=== PATIENT | female | born 1945 | race Caucasian/White ===

== ENCOUNTER 2021-07-09 03:12 | Inpatient (IN) | payer MEDICARE, MEDICAID ==
[~2021-07-09] VITALS: Ht 160 cm; Wt 80.8 kg
[2021-07-09 05:35] LABS: BG BASE EXCESS -0.8 mmol/L (-2.0-2.0); BG CARBOXYHEMOGLOBIN 0.3 % (0.5-1.5); BG FRACTION INSPIRED OXYGEN 28; BG METHEMOGLOBIN 0.3 % (0.0-1.5); BG OXYHEMOGLOBIN 93.4 % (94.0-97.0); BG PCO2 35.9 mmHg (35.0-45.0); BG PH 7.425 (7.350-7.450); BG PO2 67.3 mmHg (75.0-100.0); BG SAMPLE SITE RIGHT RADIAL; BG TOTAL HEMOGLOBIN 15.5 g/dL (12.0-18.0); BG VENT MODE NASAL CANNULA
[2021-07-09 05:45] LABS: HEMATOCRIT. 46.1 % (36.0-48.0); HEMOGLOBIN. 15.8 g/dL (12.0-16.0); LYMPHOCYTES % 9.6 % (20.0-50.0); MEAN CORPUSCULAR HEMOGLOBIN 31.1 pg (28.0-32.0); MEAN CORPUSCULAR VOLUME 90.6 fL (81.0-99.0); MEAN PLATELET VOLUME 9.6 fl (7.4-10.4); MONOCYTES % 5.8 % (2.0-8.0); NEUTROPHILS % 84.6 % (40.0-76.0); PLATELET 132 x1000/uL (130-400); RED BLOOD CELL COUNT 5.09 mill/uL (4.2-5.4); RED CELL DISTRIBUTION WIDTH 14.3 % (11.6-14.6)
[2021-07-09 05:58] LABS: CHLORIDE 100 mEq/L (98-107)
[2021-07-09 06:06] LABS: CREATINE KINASE 156 IU/L (26-192)
[2021-07-09 06:12] LABS: D-DIMER 0.67 mg/L FEU (<0.50); PROTHROMBIN TIME 10.6 sec (9.6-11.0)
[2021-07-09] MEDS ORDERED: AZITHROMYCIN 500 MG in DEXT 5% WATER 250 ML IV ONE (07:15)
[2021-07-09] MEDS ORDERED: CEFTRIAXONE 1 G PREMIX 50 ML IV ONE (07:15)
[2021-07-09 07:55] LABS: CLARITY URINE CLEAR (CLEAR); COLOR URINE YELLOW (YELLOW); KETONES URINE NEGATIVE (NEGATIVE); LEUKOCYTE ESTERASE URINE NEGATIVE (NEGATIVE); NITRITE URINE NEGATIVE (NEGATIVE); OCCULT BLOOD URINE NEGATIVE (NEGATIVE); PROTEIN URINE 1+ (NEGATIVE); SPECIFIC GRAVITY URINE 1.012 (1.005-1.030)
[2021-07-09] MEDS ORDERED: ZOLPIDEM TARTRATE 5MG TABLET PO PRN (11:30)
[2021-07-09] MEDS ORDERED: ALBUTEROL 6.7GM HFA INHALER ORI PRN (11:30)
[2021-07-09] MEDS ORDERED: KETOROLAC 15MG/ML VIAL IV PRN (11:30)
[2021-07-09] MEDS ORDERED: TRAMADOL 50MG TABLET PO PRN (11:30)
[2021-07-09] MEDS ORDERED: NITROGLYCERIN 0.4MG TABLET SL SL PRN (11:30)
[2021-07-09] MEDS ORDERED: ACETAMINOPHEN 325MG TABLET PO PRN (11:45)
[2021-07-09] MEDS ORDERED: GUAIFENESIN 200MG/10ML SUGAR FREE UDC PO PRN (11:45)
[2021-07-09] MEDS ORDERED: CLONIDINE 0.1MG TABLET PO PRN (11:45)
[2021-07-09] MEDS ORDERED: NA PHOS,M-B/NA PHOS,DI-BA ENEMA 118ML PR PRN (11:45)
[2021-07-09] MEDS ORDERED: MAGNESIUM/ALUMINUM HYDROXIDE/SIMETHICONE 30ML UDC PO PRN (11:45)
[2021-07-09] MEDS ORDERED: ONDANSETRON HCL 4MG/2ML INJ IV PRN (11:45)
[2021-07-09 12:13] LABS: T4 FREE 1.6 ng/dL (0.76-1.46)
[2021-07-09 12:26] LABS: FOLIC ACID (FOLATE) SERUM >20 ng/mL ng/mL (>5.38)
[2021-07-09 12:38] LABS: VITAMIN B12 SERUM >2000 pg/mL pg/mL (211-911)
[2021-07-09] MEDS: FAMOTIDINE 20MG TABLET PO SCH (14:42)
[2021-07-09] MEDS: ASPIRIN 325MG EC TABLET PO SCH (14:42)
[2021-07-09] MEDS: ENOXAPARIN 40MG/0.4ML SYR SUBCUT SCH (14:42)
[2021-07-09] MEDS: DILTIAZEM HCL 30MG TABLET PO SCH ×2 (14:42→17:58)
[2021-07-09] MEDS: GUAIFENESIN 600MG ER TABLET PO SCH ×2 (14:54→21:26)
[2021-07-09] MEDS: DEXAMETHASONE 6MG TABLET PO SCH (14:54)
[2021-07-09] MEDS: ALBUTEROL 6.7GM HFA INHALER ORI SCH ×3 (15:00→21:28)
[2021-07-09] MEDS ORDERED: NALOXONE HCL 0.4MG/ML VIAL IV PRN (15:15)
[2021-07-09] MEDS ORDERED: OMEP20CA14 MT (16:58)
[2021-07-09] MEDS ORDERED: PENT400T16 MT (16:58)
[2021-07-09] MEDS ORDERED: ATOR10TA69 MT (16:58)
[2021-07-09] MEDS ORDERED: SERT25TA74 MT (16:58)
[2021-07-09 17:10] VITALS: BP 121/67
[2021-07-09 20:00] VITALS: BP 120/59
[2021-07-09 20:46] LABS: CREATINE KINASE 148 IU/L (26-192)
[2021-07-09 20:47] LABS: CREATINE KINASE MB FRACTION 1.2 ng/mL (0.5-3.6)
[2021-07-09] MEDS ORDERED: FAMOTIDINE 20MG TABLET PO SCH (21:00)
[2021-07-09] MEDS: ASCORBIC ACID 500 MG TABLET PO SCH (21:26)
[2021-07-10] VITALS: BP 116/59
[2021-07-10 01:30] LABS: CREATINE KINASE 138 IU/L (26-192)
[2021-07-10 01:31] LABS: CREATINE KINASE MB FRACTION 1.2 ng/mL (0.5-3.6)
[2021-07-10] MEDS: ALBUTEROL 6.7GM HFA INHALER ORI SCH ×2 (03:00→08:26)
[2021-07-10 04:00] VITALS: BP 93/74
[2021-07-10] MEDS: DILTIAZEM HCL 30MG TABLET PO SCH ×4 (04:56→17:44)
[2021-07-10 07:59] LABS: *AMPHETAMINES SCREEN URINE NEGATIVE (NEGATIVE); *BARBITURATES SCREEN URINE NEGATIVE (NEGATIVE); *BENZODIAZEPINES SCREEN URINE NEGATIVE (NEGATIVE)
[2021-07-10 08:00] LABS: *COCAINE SCREEN URINE NEGATIVE (NEGATIVE); CANNABINOID URINE SCREEN NEGATIVE (NEGATIVE); METHADONE URINE SCREEN NEGATIVE (NEGATIVE); OPIATES URINE SCREEN NEGATIVE (NEGATIVE); PHENCYCLIDINE URINE SCREEN NEGATIVE (NEGATIVE)
[2021-07-10] MEDS ORDERED: AZITHROMYCIN 500 MG in DEXT 5% WATER 250 ML IV SCH (08:00)
[2021-07-10] MEDS: CEFTRIAXONE 1,000 MG in DEXTROSE 5% WATER 50 ML IV SCH (08:22)
[2021-07-10] MEDS: DEXAMETHASONE 6MG TABLET PO SCH (08:23)
[2021-07-10] MEDS: FAMOTIDINE 20MG TABLET PO SCH (08:23)
[2021-07-10] MEDS: ASPIRIN 325MG EC TABLET PO SCH (08:23)
[2021-07-10] MEDS: ZINC SULFATE 220 MG ( 50 ) CAPSULE PO SCH (08:24)
[2021-07-10] MEDS: ASCORBIC ACID 500 MG TABLET PO SCH ×2 (08:24→22:14)
[2021-07-10] MEDS: ENOXAPARIN 40MG/0.4ML SYR SUBCUT SCH (08:24)
[2021-07-10 08:35] LABS: CHLORIDE 107 mEq/L (98-107)
[2021-07-10 08:42] LABS: PHOSPHORUS 3.3 mg/dL (2.5-4.9)
[2021-07-10] MEDS ORDERED: CEFTRIAXONE 1 G PREMIX 50 ML IV SCH (09:00)
[2021-07-10] MEDS ORDERED: ENOXAPARIN 80MG/0.8ML SYR SUBCUT SCH (09:45)
[2021-07-10] MEDS: GUAIFENESIN 600MG ER TABLET PO SCH ×2 (10:00→22:14)
[2021-07-10] MEDS: AZITHROMYCIN 500 MG in DEXT 5% WATER 250 ML IV SCH (10:00)
[2021-07-10] MEDS ORDERED: ENOXAPARIN 30MG/0.3ML SYR SUBCUT SCH (10:15)
[2021-07-10 16:00] VITALS: BP 132/65
[2021-07-10 19:30] VITALS: BP 130/88
[2021-07-10 20:00] VITALS: BP 122/58
[2021-07-10] MEDS ORDERED: IOHEXOL-350 100 ML BOTTLE ONE (20:04)
[2021-07-10] MEDS: ENOXAPARIN 80MG/0.8ML SYR SUBCUT SCH (22:15)
[2021-07-11] VITALS: BP 120/64
[2021-07-11] MEDS: DILTIAZEM HCL 30MG TABLET PO SCH ×4 (00:06→16:55)
[2021-07-11 04:00] VITALS: BP 126/68
[2021-07-11 08:00] VITALS: BP 113/61
[2021-07-11] MEDS: ASPIRIN 325MG EC TABLET PO SCH (08:34)
[2021-07-11] MEDS: ENOXAPARIN 80MG/0.8ML SYR SUBCUT SCH ×2 (08:34→21:27)
[2021-07-11] MEDS: GUAIFENESIN 600MG ER TABLET PO SCH ×2 (08:34→21:27)
[2021-07-11] MEDS: DEXAMETHASONE 6MG TABLET PO SCH (08:34)
[2021-07-11] MEDS: FAMOTIDINE 20MG TABLET PO SCH (08:34)
[2021-07-11] MEDS: ZINC SULFATE 220 MG ( 50 ) CAPSULE PO SCH (08:34)
[2021-07-11] MEDS: ASCORBIC ACID 500 MG TABLET PO SCH ×2 (08:34→21:27)
[2021-07-11] MEDS: AZITHROMYCIN 500 MG in DEXT 5% WATER 250 ML IV SCH (08:34)
[2021-07-11] MEDS: ALBUTEROL 6.7GM HFA INHALER ORI SCH ×2 (08:35→21:29)
[2021-07-11] MEDS: CEFTRIAXONE 1,000 MG in DEXTROSE 5% WATER 50 ML IV SCH (08:35)
[2021-07-11 11:56] VITALS: BP 123/69
[2021-07-11 16:00] VITALS: BP_SYST 100; BP_SYST 127; BP_DIAS 60; BP_DIAS 67
[2021-07-11 20:33] VITALS: BP 143/71
[2021-07-12 00:29] VITALS: BP 108/89
[2021-07-12] MEDS: ALBUTEROL 6.7GM HFA INHALER ORI SCH ×4 (03:34→20:44)
[2021-07-12 04:00] VITALS: BP 127/71
[2021-07-12] MEDS: DILTIAZEM HCL 30MG TABLET PO SCH ×5 (05:13→23:39)
[2021-07-12 08:00] VITALS: BP 130/74
[2021-07-12] MEDS: GUAIFENESIN 600MG ER TABLET PO SCH ×2 (09:12→20:43)
[2021-07-12] MEDS: ASCORBIC ACID 500 MG TABLET PO SCH ×2 (09:12→20:43)
[2021-07-12] MEDS: ZINC SULFATE 220 MG ( 50 ) CAPSULE PO SCH (09:12)
[2021-07-12] MEDS: ASPIRIN 325MG EC TABLET PO SCH (09:12)
[2021-07-12] MEDS: FAMOTIDINE 20MG TABLET PO SCH (09:12)
[2021-07-12] MEDS: ENOXAPARIN 80MG/0.8ML SYR SUBCUT SCH ×2 (09:12→20:43)
[2021-07-12] MEDS: DEXAMETHASONE 6MG TABLET PO SCH (09:12)
[2021-07-12] MEDS: CEFTRIAXONE 1,000 MG in DEXTROSE 5% WATER 50 ML IV SCH (09:12)
[2021-07-12] MEDS: AZITHROMYCIN 500 MG in DEXT 5% WATER 250 ML IV SCH (09:54)
[2021-07-12 12:00] VITALS: BP 98/41
[2021-07-12 16:00] VITALS: BP 116/59
[2021-07-12 20:00] VITALS: BP 122/56
[2021-07-13] VITALS: BP 119/85
[2021-07-13] MEDS: ALBUTEROL 6.7GM HFA INHALER ORI SCH ×4 (03:00→20:13)
[2021-07-13] MEDS: DILTIAZEM HCL 30MG TABLET PO SCH ×3 (06:46→17:20)
[2021-07-13 08:00] VITALS: BP 123/58
[2021-07-13] MEDS: FAMOTIDINE 20MG TABLET PO SCH (08:42)
[2021-07-13] MEDS: ZINC SULFATE 220 MG ( 50 ) CAPSULE PO SCH (08:42)
[2021-07-13] MEDS: ASPIRIN 325MG EC TABLET PO SCH (08:42)
[2021-07-13] MEDS: AZITHROMYCIN 500 MG in DEXT 5% WATER 250 ML IV SCH (08:42)
[2021-07-13] MEDS: GUAIFENESIN 600MG ER TABLET PO SCH ×2 (08:42→20:12)
[2021-07-13] MEDS: ASCORBIC ACID 500 MG TABLET PO SCH ×2 (08:42→20:12)
[2021-07-13] MEDS: DEXAMETHASONE 6MG TABLET PO SCH (08:42)
[2021-07-13] MEDS: CEFTRIAXONE 1,000 MG in DEXTROSE 5% WATER 50 ML IV SCH (08:42)
[2021-07-13] MEDS: ENOXAPARIN 80MG/0.8ML SYR SUBCUT SCH ×2 (08:43→20:12)
[2021-07-13 12:00] VITALS: BP 110/53
[2021-07-13 16:00] VITALS: BP 132/74
[2021-07-13 20:00] VITALS: BP 130/68
[2021-07-14 00:05] VITALS: BP 109/81
[2021-07-14] MEDS: ALBUTEROL 6.7GM HFA INHALER ORI SCH ×4 (03:00→21:17)
[2021-07-14 04:00] VITALS: BP 119/71
[2021-07-14] MEDS: DILTIAZEM HCL 30MG TABLET PO SCH ×5 (05:10→23:00)
[2021-07-14 08:00] VITALS: BP 114/50
[2021-07-14] MEDS: CEFTRIAXONE 1,000 MG in DEXTROSE 5% WATER 50 ML IV SCH (08:46)
[2021-07-14] MEDS: ENOXAPARIN 80MG/0.8ML SYR SUBCUT SCH ×2 (08:46→21:16)
[2021-07-14] MEDS: GUAIFENESIN 600MG ER TABLET PO SCH ×2 (08:47→21:16)
[2021-07-14] MEDS: ASPIRIN 325MG EC TABLET PO SCH (08:47)
[2021-07-14] MEDS: DEXAMETHASONE 6MG TABLET PO SCH (08:47)
[2021-07-14] MEDS: ZINC SULFATE 220 MG ( 50 ) CAPSULE PO SCH (08:47)
[2021-07-14] MEDS: ASCORBIC ACID 500 MG TABLET PO SCH ×2 (08:47→21:16)
[2021-07-14] MEDS: FAMOTIDINE 20MG TABLET PO SCH (08:47)
[2021-07-14 11:57] VITALS: BP 125/68
[2021-07-14 16:00] VITALS: BP 118/45
[2021-07-14 20:00] VITALS: BP 124/55
[2021-07-14] MEDS: ZOLPIDEM TARTRATE 5MG TABLET PO PRN (22:59)
[2021-07-15] VITALS (7 sets, daily range): BP systolic 104–120; BP diastolic 50–66
[2021-07-15] MEDS: ALBUTEROL 6.7GM HFA INHALER ORI SCH ×3 (03:40→16:47)
[2021-07-15] MEDS: DILTIAZEM HCL 30MG TABLET PO SCH ×3 (06:47→18:23)
[2021-07-15] MEDS: ASPIRIN 325MG EC TABLET PO SCH (09:37)
[2021-07-15] MEDS: ZINC SULFATE 220 MG ( 50 ) CAPSULE PO SCH (09:37)
[2021-07-15] MEDS: ASCORBIC ACID 500 MG TABLET PO SCH (09:37)
[2021-07-15] MEDS: DOCUSATE SODIUM 100MG CAPSULE PO PRN (09:37)
[2021-07-15] MEDS: GUAIFENESIN 600MG ER TABLET PO SCH (09:38)
[2021-07-15] MEDS: ENOXAPARIN 80MG/0.8ML SYR SUBCUT SCH (09:38)
[2021-07-15] MEDS: DEXAMETHASONE 6MG TABLET PO SCH (09:38)
[2021-07-15] MEDS: FAMOTIDINE 20MG TABLET PO SCH (09:39)
[2021-07-16] MEDS: GUAIFENESIN 600MG ER TABLET PO SCH ×3 (00:33→20:38)
[2021-07-16] MEDS: DILTIAZEM HCL 30MG TABLET PO SCH ×4 (00:33→18:00)
[2021-07-16] MEDS: ASCORBIC ACID 500 MG TABLET PO SCH ×3 (00:33→20:38)
[2021-07-16] MEDS: ENOXAPARIN 80MG/0.8ML SYR SUBCUT SCH ×3 (00:33→20:38)
[2021-07-16] MEDS: ALBUTEROL 6.7GM HFA INHALER ORI SCH ×5 (00:34→20:38)
[2021-07-16 04:00] VITALS: BP 119/51
[2021-07-16 06:08] LABS: HEMATOCRIT. 49.4 % (36.0-48.0); HEMOGLOBIN. 16.5 g/dL (12.0-16.0); MEAN CORPUSCULAR HEMOGLOBIN 30.5 pg (28.0-32.0); MEAN CORPUSCULAR VOLUME 91.6 fL (81.0-99.0); MEAN PLATELET VOLUME 9.6 fl (7.4-10.4); PLATELET 302 x1000/uL (130-400); RED CELL DISTRIBUTION WIDTH 14.1 % (11.6-14.6)
[2021-07-16 06:44] LABS: CHLORIDE 107 mEq/L (98-107)
[2021-07-16 08:00] VITALS: BP 124/64
[2021-07-16] MEDS: ZINC SULFATE 220 MG ( 50 ) CAPSULE PO SCH (09:00)
[2021-07-16] MEDS: DEXAMETHASONE 6MG TABLET PO SCH (09:01)
[2021-07-16] MEDS: FAMOTIDINE 20MG TABLET PO SCH (09:01)
[2021-07-16] MEDS: ASPIRIN 325MG EC TABLET PO SCH (09:01)
[2021-07-16] MEDS: DOCUSATE SODIUM 100MG CAPSULE PO PRN (09:01)
[2021-07-16 12:00] VITALS: BP 102/64
[2021-07-16] MEDS: AZITHROMYCIN 500 MG in DEXT 5% WATER 250 ML IV SCH (12:23)
[2021-07-16 14:15] LABS: BG BASE EXCESS 0.4 mmol/L (-2.0-2.0); BG CARBOXYHEMOGLOBIN 0.3 % (0.5-1.5); BG DEOXYHEMOGLOBIN 4.8 % (0.0-5.0); BG FRACTION INSPIRED OXYGEN 100; BG HCO3 ACT 23.4 mmol/L (22.0-26.0); BG OXYGEN SATURATION 95.2 % (92.0-98.5); BG OXYHEMOGLOBIN 94.9 % (94.0-97.0); BG PCO2 33.7 mmHg (35.0-45.0); BG PO2 72.8 mmHg (75.0-100.0); BG SAMPLE SITE RIGHT RADIAL; BG VENT MODE HIGH FLOW
[2021-07-16 16:00] VITALS: BP 104/54
[2021-07-16 20:00] VITALS: BP 107/48
[2021-07-17] VITALS: BP 114/60
[2021-07-17 01:52] LABS: PLATELET ESTIMATE NORMAL
[2021-07-17] MEDS: ALBUTEROL 6.7GM HFA INHALER ORI SCH ×4 (03:21→21:00)
[2021-07-17] MEDS: DILTIAZEM HCL 30MG TABLET PO SCH ×5 (03:22→23:57)
[2021-07-17 04:00] VITALS: BP 122/68
[2021-07-17 08:00] VITALS: BP 102/64
[2021-07-17] MEDS: ZINC SULFATE 220 MG ( 50 ) CAPSULE PO SCH (08:16)
[2021-07-17] MEDS: ASPIRIN 325MG EC TABLET PO SCH (08:16)
[2021-07-17] MEDS: ASCORBIC ACID 500 MG TABLET PO SCH ×2 (08:16→20:59)
[2021-07-17] MEDS: FAMOTIDINE 20MG TABLET PO SCH (08:17)
[2021-07-17] MEDS: DEXAMETHASONE 6MG TABLET PO SCH (08:17)
[2021-07-17] MEDS: GUAIFENESIN 600MG ER TABLET PO SCH ×2 (08:17→20:59)
[2021-07-17] MEDS: ENOXAPARIN 80MG/0.8ML SYR SUBCUT SCH ×2 (08:17→21:00)
[2021-07-17 12:00] VITALS: BP 131/102
[2021-07-17] MEDS: AZITHROMYCIN 500 MG in DEXT 5% WATER 250 ML IV SCH (12:01)
[2021-07-17] MEDS: CEFTRIAXONE 1,000 MG in DEXTROSE 5% WATER 50 ML IV SCH (15:08)
[2021-07-17 16:00] VITALS: BP 116/97
[2021-07-17 20:00] VITALS: BP 94/50
[2021-07-17] MEDS: ZOLPIDEM TARTRATE 5MG TABLET PO PRN (20:59)
[2021-07-18] VITALS: BP 106/52
[2021-07-18] MEDS: ALBUTEROL 6.7GM HFA INHALER ORI SCH ×4 (03:00→21:26)
[2021-07-18 04:00] VITALS: BP 98/55
[2021-07-18] MEDS: DILTIAZEM HCL 30MG TABLET PO SCH ×3 (05:02→17:10)
[2021-07-18 08:00] VITALS: BP 103/45
[2021-07-18] MEDS: ENOXAPARIN 80MG/0.8ML SYR SUBCUT SCH ×2 (08:16→21:25)
[2021-07-18] MEDS: ASCORBIC ACID 500 MG TABLET PO SCH ×2 (08:16→21:25)
[2021-07-18] MEDS: FAMOTIDINE 20MG TABLET PO SCH (08:16)
[2021-07-18] MEDS: GUAIFENESIN 600MG ER TABLET PO SCH ×2 (08:16→21:25)
[2021-07-18] MEDS: ZINC SULFATE 220 MG ( 50 ) CAPSULE PO SCH (08:16)
[2021-07-18] MEDS: CEFTRIAXONE 1,000 MG in DEXTROSE 5% WATER 50 ML IV SCH (08:16)
[2021-07-18] MEDS: DEXAMETHASONE 6MG TABLET PO SCH (08:16)
[2021-07-18] MEDS: ASPIRIN 325MG EC TABLET PO SCH (08:16)
[2021-07-18] MEDS: AZITHROMYCIN 500 MG in DEXT 5% WATER 250 ML IV SCH (11:20)
[2021-07-18 12:00] VITALS: BP 118/56
[2021-07-18 16:00] VITALS: BP 113/52
[2021-07-18 19:56] VITALS: BP 104/51
[2021-07-19] VITALS: BP 100/55
[2021-07-19] MEDS: ALBUTEROL 6.7GM HFA INHALER ORI SCH ×4 (03:56→20:58)
[2021-07-19 04:00] VITALS: BP 107/51
[2021-07-19] MEDS: DILTIAZEM HCL 30MG TABLET PO SCH ×4 (05:07→17:13)
[2021-07-19 08:00] VITALS: BP 104/62
[2021-07-19] MEDS: DEXAMETHASONE 6MG TABLET PO SCH (08:04)
[2021-07-19] MEDS: ASCORBIC ACID 500 MG TABLET PO SCH ×2 (08:04→20:58)
[2021-07-19] MEDS: ENOXAPARIN 80MG/0.8ML SYR SUBCUT SCH ×2 (08:04→20:59)
[2021-07-19] MEDS: ZINC SULFATE 220 MG ( 50 ) CAPSULE PO SCH (08:04)
[2021-07-19] MEDS: ASPIRIN 325MG EC TABLET PO SCH (08:04)
[2021-07-19] MEDS: CEFTRIAXONE 1,000 MG in DEXTROSE 5% WATER 50 ML IV SCH (08:04)
[2021-07-19] MEDS: FAMOTIDINE 20MG TABLET PO SCH (08:04)
[2021-07-19] MEDS: GUAIFENESIN 600MG ER TABLET PO SCH ×2 (08:04→20:58)
[2021-07-19] MEDS: ACETAMINOPHEN 325MG TABLET PO PRN (08:06)
[2021-07-19] MEDS: AZITHROMYCIN 500 MG in DEXT 5% WATER 250 ML IV SCH (11:45)
[2021-07-19 12:00] VITALS: BP 115/59
[2021-07-19 16:00] VITALS: BP 104/50
[2021-07-19 20:00] VITALS: BP 113/42
[2021-07-20] VITALS (48 sets, daily range): BP systolic 94–138; BP diastolic 38–82
[2021-07-20] MEDS: ALBUTEROL 6.7GM HFA INHALER ORI SCH ×3 (04:28→15:54)
[2021-07-20] MEDS: DILTIAZEM HCL 30MG TABLET PO SCH ×4 (06:00→17:47)
[2021-07-20] MEDS: FAMOTIDINE 20MG TABLET PO SCH (09:36)
[2021-07-20] MEDS: ASPIRIN 325MG EC TABLET PO SCH (09:36)
[2021-07-20] MEDS: DEXAMETHASONE 6MG TABLET PO SCH (09:36)
[2021-07-20] MEDS: ZINC SULFATE 220 MG ( 50 ) CAPSULE PO SCH (09:36)
[2021-07-20] MEDS: GUAIFENESIN 600MG ER TABLET PO SCH ×2 (09:37→21:00)
[2021-07-20] MEDS: ENOXAPARIN 80MG/0.8ML SYR SUBCUT SCH ×2 (09:37→20:37)
[2021-07-20] MEDS: ASCORBIC ACID 500 MG TABLET PO SCH ×2 (09:37→20:37)
[2021-07-20] MEDS: CEFTRIAXONE 1,000 MG in DEXTROSE 5% WATER 50 ML IV SCH (09:39)
[2021-07-20] MEDS ORDERED: LORAZEPAM 2MG/ML CPJ ONE (10:44)
[2021-07-20] MEDS ORDERED: LORAZEPAM 2MG/ML CPJ IV NR (10:45)
[2021-07-20 11:06] LABS: BG BASE EXCESS -1.7 mmol/L (-2.0-2.0); BG CARBOXYHEMOGLOBIN 0.5 % (0.5-1.5); BG DEOXYHEMOGLOBIN 21.7 % (0.0-5.0); BG HCO3 ACT 21.9 mmol/L (22.0-26.0); BG METHEMOGLOBIN 0.2 % (0.0-1.5); BG OXYGEN SATURATION 78.1 % (92.0-98.5); BG OXYHEMOGLOBIN 77.6 % (94.0-97.0); BG PCO2 34.2 mmHg (35.0-45.0); BG PH 7.424 (7.350-7.450); BG PO2 40.2 mmHg (75.0-100.0); BG SAMPLE SITE RIGHT RADIAL; BG TOTAL HEMOGLOBIN 16.3 g/dL (12.0-18.0); BG VENT MODE VAPOTHERM
[2021-07-20] MEDS ORDERED: GUAIFENESIN-DM 200MG-20MG/10ML UDC PO PRN (11:15)
[2021-07-20] MEDS: BENZONATATE 100MG CAPSULE PO SCH ×2 (12:00→22:00)
[2021-07-20] MEDS: AZITHROMYCIN 500 MG in DEXT 5% WATER 250 ML IV SCH (12:39)
[2021-07-20] MEDS: LORAZEPAM 0.5MG TABLET PO PRN (16:24)
[2021-07-21] VITALS (70 sets, daily range): BP systolic 84–165; BP diastolic 22–113
[2021-07-21] MEDS: ALBUTEROL 6.7GM HFA INHALER ORI SCH ×4 (01:00→17:45)
[2021-07-21] MEDS: DILTIAZEM HCL 30MG TABLET PO SCH ×3 (06:00→12:00)
[2021-07-21] MEDS: BENZONATATE 100MG CAPSULE PO SCH ×3 (06:28→21:21)
[2021-07-21] MEDS: GUAIFENESIN 600MG ER TABLET PO SCH ×2 (09:00→20:43)
[2021-07-21] MEDS: DOCUSATE SODIUM 100MG CAPSULE PO PRN (09:12)
[2021-07-21] MEDS: CEFTRIAXONE 1,000 MG in DEXTROSE 5% WATER 50 ML IV SCH (09:12)
[2021-07-21 09:13] LABS: BG BASE EXCESS -1.8 mmol/L (-2.0-2.0); BG CARBOXYHEMOGLOBIN 1.1 % (0.5-1.5); BG DEOXYHEMOGLOBIN 11.5 % (0.0-5.0); BG FRACTION INSPIRED OXYGEN 100; BG METHEMOGLOBIN 0.3 % (0.0-1.5); BG OXYGEN SATURATION 88.3 % (92.0-98.5); BG OXYHEMOGLOBIN 87.1 % (94.0-97.0); BG PCO2 34.9 mmHg (35.0-45.0); BG PH 7.417 (7.350-7.450); BG PO2 50.8 mmHg (75.0-100.0); BG SAMPLE SITE RIGHT RADIAL; BG TOTAL HEMOGLOBIN 15.9 g/dL (12.0-18.0); BG VENT MODE MASK - BIPAP
[2021-07-21] MEDS: DEXAMETHASONE 6MG TABLET PO SCH (09:13)
[2021-07-21] MEDS: FAMOTIDINE 20MG TABLET PO SCH (09:13)
[2021-07-21] MEDS: ASPIRIN 325MG EC TABLET PO SCH (09:13)
[2021-07-21] MEDS: ZINC SULFATE 220 MG ( 50 ) CAPSULE PO SCH (09:14)
[2021-07-21] MEDS: ENOXAPARIN 80MG/0.8ML SYR SUBCUT SCH ×2 (09:14→20:43)
[2021-07-21] MEDS: ASCORBIC ACID 500 MG TABLET PO SCH ×2 (09:18→20:43)
[2021-07-21 17:15] LABS: HEMATOCRIT. 44.6 % (36.0-48.0); MEAN CORPUSCULAR HEMOGLOBIN 30.5 pg (28.0-32.0); MEAN CORPUSCULAR VOLUME 90.9 fL (81.0-99.0); MEAN PLATELET VOLUME 9.1 fl (7.4-10.4); PLATELET 163 x1000/uL (130-400); RED BLOOD CELL COUNT 4.91 mill/uL (4.2-5.4); RED CELL DISTRIBUTION WIDTH 14.8 % (11.6-14.6)
[2021-07-21 17:23] LABS: CHLORIDE 108 mEq/L (98-107)
[2021-07-21] MEDS: METOPROLOL TARTRATE 25MG TABLET PO SCH (20:43)
[2021-07-21 21:11] LABS: PLATELET ESTIMATE NORMAL
[2021-07-22] VITALS (52 sets, daily range): BP systolic 84–181; BP diastolic 44–146
[2021-07-22] MEDS: ALBUTEROL 6.7GM HFA INHALER ORI SCH ×4 (02:29→20:22)
[2021-07-22] MEDS: LORAZEPAM 0.5MG TABLET PO PRN (04:11)
[2021-07-22] MEDS: BENZONATATE 100MG CAPSULE PO SCH ×3 (05:45→22:00)
[2021-07-22] MEDS: ZINC SULFATE 220 MG ( 50 ) CAPSULE PO SCH (08:16)
[2021-07-22] MEDS: DEXAMETHASONE 6MG TABLET PO SCH (08:16)
[2021-07-22] MEDS: GUAIFENESIN 600MG ER TABLET PO SCH ×2 (08:16→20:23)
[2021-07-22] MEDS: ASPIRIN 325MG EC TABLET PO SCH (08:16)
[2021-07-22] MEDS: CEFTRIAXONE 1,000 MG in DEXTROSE 5% WATER 50 ML IV SCH (08:16)
[2021-07-22] MEDS: ASCORBIC ACID 500 MG TABLET PO SCH ×2 (08:16→20:23)
[2021-07-22] MEDS: ENOXAPARIN 80MG/0.8ML SYR SUBCUT SCH ×2 (08:16→20:23)
[2021-07-22] MEDS: FAMOTIDINE 20MG TABLET PO SCH (08:16)
[2021-07-22] MEDS: METOPROLOL TARTRATE 25MG TABLET PO SCH ×2 (08:17→20:23)
[2021-07-22 08:47] LABS: BG BASE EXCESS -1.9 mmol/L (-2.0-2.0); BG CARBOXYHEMOGLOBIN 0.4 % (0.5-1.5); BG DEOXYHEMOGLOBIN 13.8 % (0.0-5.0); BG HCO3 ACT 20.8 mmol/L (22.0-26.0); BG METHEMOGLOBIN 0.3 % (0.0-1.5); BG OXYGEN SATURATION 86.1 % (92.0-98.5); BG OXYHEMOGLOBIN 85.5 % (94.0-97.0); BG PCO2 30.1 mmHg (35.0-45.0); BG PH 7.457 (7.350-7.450); BG PO2 48.2 mmHg (75.0-100.0); BG SAMPLE SITE RIGHT BRACHIAL; BG TOTAL HEMOGLOBIN 15.1 g/dL (12.0-18.0); BG VENT MODE MASK - BIPAP
[2021-07-23] VITALS (87 sets, daily range): BP systolic 69–162; BP diastolic 28–107
[2021-07-23] MEDS: ALBUTEROL 6.7GM HFA INHALER ORI SCH ×3 (01:12→14:53)
[2021-07-23] MEDS: BENZONATATE 100MG CAPSULE PO SCH ×4 (06:00→22:00)
[2021-07-23 06:07] LABS: BG BASE EXCESS -1.1 mmol/L (-2.0-2.0); BG DEOXYHEMOGLOBIN 10.8 % (0.0-5.0); BG FRACTION INSPIRED OXYGEN 100; BG HCO3 ACT 23.3 mmol/L (22.0-26.0); BG METHEMOGLOBIN 0.1 % (0.0-1.5); BG OXYGEN SATURATION 89.1 % (92.0-98.5); BG OXYHEMOGLOBIN 88.1 % (94.0-97.0); BG PCO2 38.5 mmHg (35.0-45.0); BG PO2 57.6 mmHg (75.0-100.0); BG SAMPLE SITE RIGHT RADIAL; BG TOTAL HEMOGLOBIN 16.6 g/dL (12.0-18.0); BG VENT MODE MASK - BIPAP
[2021-07-23 07:57] LABS: HEMATOCRIT. 46.8 % (36.0-48.0); HEMOGLOBIN. 15.8 g/dL (12.0-16.0); MEAN CORPUSCULAR HEMOGLOBIN 30.4 pg (28.0-32.0); MEAN CORPUSCULAR VOLUME 90.3 fL (81.0-99.0); MEAN PLATELET VOLUME 10.2 fl (7.4-10.4); PLATELET 172 x1000/uL (130-400); RED BLOOD CELL COUNT 5.19 mill/uL (4.2-5.4); RED CELL DISTRIBUTION WIDTH 14.8 % (11.6-14.6)
[2021-07-23] MEDS ORDERED: LORAZEPAM 2MG/ML CPJ IV PRN (08:45)
[2021-07-23] MEDS ORDERED: SODIUM CHLORIDE 0.9% 500 ML IV NR (08:45)
[2021-07-23] MEDS: DEXT 5%/0.45% NACL 1000ML 1,000 ML IV SCH ×2 (08:50→20:38)
[2021-07-23] MEDS ORDERED: DILTIAZEM HCL 125 MG in DEXT 5% WATER 100 ML IV PRN (09:00)
[2021-07-23] MEDS: METOPROLOL TARTRATE 25MG TABLET PO SCH ×2 (09:00→21:00)
[2021-07-23 09:04] LABS: CHLORIDE 113 mEq/L (98-107)
[2021-07-23] MEDS: DOCUSATE SODIUM 100MG CAPSULE PO PRN (09:30)
[2021-07-23] MEDS: GUAIFENESIN 600MG ER TABLET PO SCH (09:30)
[2021-07-23] MEDS: ASCORBIC ACID 500 MG TABLET PO SCH ×3 (09:30→21:00)
[2021-07-23] MEDS: ASPIRIN 325MG EC TABLET PO SCH (09:30)
[2021-07-23] MEDS: DEXAMETHASONE 6MG TABLET PO SCH (09:30)
[2021-07-23] MEDS: ZINC SULFATE 220 MG ( 50 ) CAPSULE PO SCH (09:30)
[2021-07-23] MEDS: ENOXAPARIN 80MG/0.8ML SYR SUBCUT SCH ×2 (09:32→20:14)
[2021-07-23] MEDS: FAMOTIDINE 20MG TABLET PO SCH (09:32)
[2021-07-23 10:34] LABS: PLATELET ESTIMATE NORMAL
[2021-07-23] MEDS: LORAZEPAM 2MG/ML CPJ IV PRN ×2 (13:22→20:54)
[2021-07-23] MEDS ORDERED: IPRATROPIUM/ALBUTEROL 0.5-3(2.5)MG/3ML NEB HHN PRN (21:15)
[2021-07-24] VITALS (100 sets, daily range): BP systolic 62–158; BP diastolic 16–94
[2021-07-24] MEDS: IPRATROPIUM/ALBUTEROL 0.5-3(2.5)MG/3ML NEB HHN SCH ×4 (01:02→20:31)
[2021-07-24] MEDS: LORAZEPAM 2MG/ML CPJ IV PRN ×2 (03:25→07:54)
[2021-07-24] MEDS: BENZONATATE 100MG CAPSULE PO SCH ×3 (06:00→22:00)
[2021-07-24] MEDS ORDERED: SUCCINYLCHOLINE CHLORIDE 200MG/10ML IV ONE (08:07)
[2021-07-24] MEDS ORDERED: ETOMIDATE 2MG/ML 10ML VIAL IV ONE (08:07)
[2021-07-24] MEDS: METOPROLOL TARTRATE 25MG TABLET PO SCH ×2 (09:00→21:00)
[2021-07-24] MEDS: ASCORBIC ACID 500 MG TABLET PO SCH (09:00)
[2021-07-24] MEDS: DEXAMETHASONE 6MG TABLET PO SCH (09:00)
[2021-07-24] MEDS: ASPIRIN 81MG TABLET PO SCH (09:00)
[2021-07-24] MEDS: FAMOTIDINE 20MG TABLET PO SCH (09:00)
[2021-07-24] MEDS: ZINC SULFATE 220 MG ( 50 ) CAPSULE PO SCH (09:00)
[2021-07-24] MEDS: DEXT 5%/0.45% NACL 1000ML 1,000 ML IV SCH (10:50)
[2021-07-24] MEDS: ENOXAPARIN 80MG/0.8ML SYR SUBCUT SCH (10:50)
[2021-07-24 12:35] LABS: BG BASE EXCESS -0.5 mmol/L (-2.0-2.0); BG CARBOXYHEMOGLOBIN 0.1 % (0.5-1.5); BG DEOXYHEMOGLOBIN 1.4 % (0.0-5.0); BG FRACTION INSPIRED OXYGEN 100; BG HCO3 ACT 28.6 mmol/L (22.0-26.0); BG METHEMOGLOBIN 0.5 % (0.0-1.5); BG OXYGEN SATURATION 98.6 % (92.0-98.5); BG PCO2 66.5 mmHg (35.0-45.0); BG PH 7.252 (7.350-7.450); BG PO2 162.7 mmHg (75.0-100.0); BG SAMPLE SITE RIGHT BRACHIAL; BG TOTAL HEMOGLOBIN 15.5 g/dL (12.0-18.0); BG VENT MODE VENT - AC
[2021-07-24] MEDS: PROPOFOL 10MG/ML 100ML 100 ML IV PRN ×2 (12:35→17:19)
[2021-07-24] MEDS: FENTANYL CITRATE/PF 2,500 MCG in SODIUM CHLORIDE 0.9% 200 ML IV PRN (12:38)
[2021-07-24] MEDS: MIDAZOLAM HCL 100 MG in SODIUM CHLORIDE 0.9% 80 ML IV PRN (12:39)
[2021-07-24] MEDS: PHENYLEPHRINE 100 MG in DEXT 5% WATER 240 ML IV PRN (14:00)
[2021-07-25] VITALS (96 sets, daily range): BP systolic 89–131; BP diastolic 46–73
[2021-07-25] MEDS: PROPOFOL 10MG/ML 100ML 100 ML IV PRN (00:32)
[2021-07-25] MEDS: ENOXAPARIN 80MG/0.8ML SYR SUBCUT SCH ×3 (00:36→20:03)
[2021-07-25] MEDS: ASCORBIC ACID 500 MG TABLET PO SCH ×3 (00:36→20:03)
[2021-07-25] MEDS: IPRATROPIUM/ALBUTEROL 0.5-3(2.5)MG/3ML NEB HHN SCH ×4 (02:14→20:11)
[2021-07-25] MEDS: DEXT 5%/0.45% NACL 1000ML 1,000 ML IV SCH ×2 (04:17→17:54)
[2021-07-25] MEDS: ACETAMINOPHEN 325MG TABLET PO PRN (05:57)
[2021-07-25 06:16] LABS: HEMOGLOBIN. 14.2 g/dL (12.0-16.0); MEAN CORPUSCULAR HEMOGLOBIN 30.3 pg (28.0-32.0); MEAN CORPUSCULAR VOLUME 91.9 fL (81.0-99.0); MEAN PLATELET VOLUME 10.7 fl (7.4-10.4); PLATELET 98 x1000/uL (130-400); RED BLOOD CELL COUNT 4.68 mill/uL (4.2-5.4); RED CELL DISTRIBUTION WIDTH 14.7 % (11.6-14.6)
[2021-07-25 06:21] LABS: CHLORIDE 113 mEq/L (98-107)
[2021-07-25 08:01] LABS: BG BASE EXCESS 0.3 mmol/L (-2.0-2.0); BG CARBOXYHEMOGLOBIN 0.3 % (0.5-1.5); BG DEOXYHEMOGLOBIN 1.4 % (0.0-5.0); BG HCO3 ACT 26.7 mmol/L (22.0-26.0); BG METHEMOGLOBIN 0.3 % (0.0-1.5); BG OXYGEN SATURATION 98.6 % (92.0-98.5); BG PCO2 49.8 mmHg (35.0-45.0); BG PH 7.347 (7.350-7.450); BG PO2 128.1 mmHg (75.0-100.0); BG SAMPLE SITE LEFT RADIAL; BG VENT MODE VENT- PRVC
[2021-07-25] MEDS: METOPROLOL TARTRATE 25MG TABLET PO SCH ×2 (09:00→20:03)
[2021-07-25] MEDS: FAMOTIDINE 20MG TABLET PO SCH (09:28)
[2021-07-25] MEDS: ZINC SULFATE 220 MG ( 50 ) CAPSULE PO SCH (09:28)
[2021-07-25] MEDS: ASPIRIN 81MG TABLET PO SCH (09:28)
[2021-07-25] MEDS: DEXAMETHASONE 6MG TABLET PO SCH (09:28)
[2021-07-25] MEDS ORDERED: PROPOFOL 10MG/ML 100ML 100 ML IV PRN (10:30)
[2021-07-25 11:01] LABS: PLATELET ESTIMATE SLIGHTLY DECREASED
[2021-07-25] MEDS: PHENYLEPHRINE 100 MG in DEXT 5% WATER 240 ML IV PRN (11:24)
[2021-07-25] MEDS: MIDAZOLAM HCL 100 MG in SODIUM CHLORIDE 0.9% 80 ML IV PRN (14:07)
[2021-07-25] MEDS: FENTANYL CITRATE/PF 2,500 MCG in SODIUM CHLORIDE 0.9% 200 ML IV PRN (16:39)
[2021-07-25] MEDS: METOCLOPRAMIDE HCL 10MG/2ML VIAL IV SCH ×2 (17:54→23:04)
[2021-07-26] VITALS (93 sets, daily range): BP systolic 92–117; BP diastolic 44–65
[2021-07-26] MEDS: IPRATROPIUM/ALBUTEROL 0.5-3(2.5)MG/3ML NEB HHN SCH ×4 (03:45→20:28)
[2021-07-26] MEDS: METOCLOPRAMIDE HCL 10MG/2ML VIAL IV SCH ×4 (05:21→23:47)
[2021-07-26] MEDS: DEXT 5%/0.45% NACL 1000ML 1,000 ML IV SCH ×2 (07:22→14:52)
[2021-07-26] MEDS: PHENYLEPHRINE 100 MG in DEXT 5% WATER 240 ML IV PRN (07:23)
[2021-07-26 09:06] LABS: BG BASE EXCESS 2.5 mmol/L (-2.0-2.0); BG CARBOXYHEMOGLOBIN 1.3 % (0.5-1.5); BG DEOXYHEMOGLOBIN 2.5 % (0.0-5.0); BG FRACTION INSPIRED OXYGEN 100; BG METHEMOGLOBIN 0.4 % (0.0-1.5); BG OXYGEN SATURATION 97.5 % (92.0-98.5); BG OXYHEMOGLOBIN 95.8 % (94.0-97.0); BG PCO2 52.2 mmHg (35.0-45.0); BG PH 7.362 (7.350-7.450); BG SAMPLE SITE LEFT RADIAL; BG TOTAL HEMOGLOBIN 13.8 g/dL (12.0-18.0); BG TOTAL RESPIRATORY RATE 30 b/min; BG VENT MODE VENT- PRVC
[2021-07-26] MEDS: ENOXAPARIN 80MG/0.8ML SYR SUBCUT SCH ×2 (09:15→20:01)
[2021-07-26] MEDS: LACTULOSE 20G/30ML UDC PO SCH (09:15)
[2021-07-26] MEDS: DEXAMETHASONE 6MG TABLET PO SCH (09:15)
[2021-07-26] MEDS: ASCORBIC ACID 500 MG TABLET PO SCH ×2 (09:15→20:01)
[2021-07-26] MEDS: ASPIRIN 81MG TABLET PO SCH (09:15)
[2021-07-26] MEDS: ZINC SULFATE 220 MG ( 50 ) CAPSULE PO SCH (09:15)
[2021-07-26] MEDS: FAMOTIDINE 20MG TABLET PO SCH (09:15)
[2021-07-26] MEDS: METOPROLOL TARTRATE 25MG TABLET PO SCH ×2 (09:16→20:01)
[2021-07-26] MEDS: FENTANYL CITRATE/PF 2,500 MCG in SODIUM CHLORIDE 0.9% 200 ML IV PRN (09:17)
[2021-07-26] MEDS: MIDAZOLAM HCL 100 MG in SODIUM CHLORIDE 0.9% 80 ML IV PRN (17:24)
[2021-07-27] VITALS (95 sets, daily range): BP systolic 83–205; BP diastolic 17–103
[2021-07-27] MEDS: IPRATROPIUM/ALBUTEROL 0.5-3(2.5)MG/3ML NEB HHN SCH ×4 (01:41→20:09)
[2021-07-27] MEDS: FENTANYL CITRATE/PF 2,500 MCG in SODIUM CHLORIDE 0.9% 200 ML IV PRN ×2 (01:55→18:23)
[2021-07-27] MEDS: METOCLOPRAMIDE HCL 10MG/2ML VIAL IV SCH ×4 (05:02→23:03)
[2021-07-27] MEDS: DEXT 5%/0.45% NACL 1000ML 1,000 ML IV SCH ×3 (05:02→17:25)
[2021-07-27] MEDS: PHENYLEPHRINE 100 MG in DEXT 5% WATER 240 ML IV PRN (05:02)
[2021-07-27 05:55] LABS: HEMATOCRIT. 39.5 % (36.0-48.0); HEMOGLOBIN. 13.1 g/dL (12.0-16.0); MEAN CORPUSCULAR HEMOGLOBIN 30.3 pg (28.0-32.0); MEAN CORPUSCULAR VOLUME 91.2 fL (81.0-99.0); MEAN PLATELET VOLUME 11.1 fl (7.4-10.4); PLATELET 121 x1000/uL (130-400); RED BLOOD CELL COUNT 4.33 mill/uL (4.2-5.4); RED CELL DISTRIBUTION WIDTH 14.4 % (11.6-14.6)
[2021-07-27 05:57] LABS: CHLORIDE 110 mEq/L (98-107)
[2021-07-27 07:31] LABS: NUCLEATED RED BLOOD CELLS 1 /100 WBC; PLATELET ESTIMATE SLIGHTLY DECREASED
[2021-07-27] MEDS: METOPROLOL TARTRATE 25MG TABLET PO SCH ×2 (08:27→20:36)
[2021-07-27] MEDS: ZINC SULFATE 220 MG ( 50 ) CAPSULE PO SCH (08:27)
[2021-07-27] MEDS: ASPIRIN 81MG TABLET PO SCH (08:27)
[2021-07-27] MEDS: ASCORBIC ACID 500 MG TABLET PO SCH ×2 (08:27→20:35)
[2021-07-27] MEDS: FAMOTIDINE 20MG TABLET PO SCH (08:27)
[2021-07-27] MEDS: DEXAMETHASONE 6MG TABLET PO SCH (08:27)
[2021-07-27] MEDS: LACTULOSE 20G/30ML UDC PO SCH (08:27)
[2021-07-27] MEDS: ENOXAPARIN 80MG/0.8ML SYR SUBCUT SCH ×2 (08:28→20:35)
[2021-07-27 09:29] LABS: BG BASE EXCESS 3.9 mmol/L (-2.0-2.0); BG CARBOXYHEMOGLOBIN 0.9 % (0.5-1.5); BG DEOXYHEMOGLOBIN 2.7 % (0.0-5.0); BG FRACTION INSPIRED OXYGEN 100; BG HCO3 ACT 31.7 mmol/L (22.0-26.0); BG METHEMOGLOBIN 0.4 % (0.0-1.5); BG OXYGEN SATURATION 97.3 % (92.0-98.5); BG PO2 96.2 mmHg (75.0-100.0); BG SAMPLE SITE LEFT RADIAL; BG TOTAL HEMOGLOBIN 13.6 g/dL (12.0-18.0); BG TOTAL RESPIRATORY RATE 35 b/min; BG VENT MODE VENT - P/C
[2021-07-27] MEDS: CEFEPIME 2,000 MG in DEXT 5% WATER 100 ML IV SCH ×2 (10:16→21:07)
[2021-07-27] MEDS: BISACODYL 10MG SUPP PR PRN (15:28)
[2021-07-27] MEDS: MIDAZOLAM HCL 100 MG in SODIUM CHLORIDE 0.9% 80 ML IV PRN (18:22)
[2021-07-27] MEDS: MULTIVITAMINS,THER W-MINERALS TABLET PO SCH (20:35)
[2021-07-28] VITALS (92 sets, daily range): BP systolic 80–118; BP diastolic 24–76
[2021-07-28] MEDS: IPRATROPIUM/ALBUTEROL 0.5-3(2.5)MG/3ML NEB HHN SCH ×4 (01:19→20:38)
[2021-07-28] MEDS: METOCLOPRAMIDE HCL 10MG/2ML VIAL IV SCH ×3 (05:22→18:19)
[2021-07-28 05:24] LABS: HEMATOCRIT. 38.7 % (36.0-48.0); HEMOGLOBIN. 13.2 g/dL (12.0-16.0); MEAN CORPUSCULAR HEMOGLOBIN 30.9 pg (28.0-32.0); MEAN CORPUSCULAR VOLUME 90.8 fL (81.0-99.0); MEAN PLATELET VOLUME 10.7 fl (7.4-10.4); PLATELET 117 x1000/uL (130-400); RED BLOOD CELL COUNT 4.27 mill/uL (4.2-5.4); RED CELL DISTRIBUTION WIDTH 14.4 % (11.6-14.6)
[2021-07-28 05:37] LABS: CHLORIDE 106 mEq/L (98-107)
[2021-07-28] MEDS: DEXT 5%/0.45% NACL 1000ML 1,000 ML IV SCH ×2 (06:45→12:39)
[2021-07-28] MEDS: LACTULOSE 20G/30ML UDC PO SCH (08:38)
[2021-07-28] MEDS: MULTIVITAMINS,THER W-MINERALS TABLET PO SCH (08:38)
[2021-07-28] MEDS: ASPIRIN 81MG TABLET PO SCH (08:38)
[2021-07-28] MEDS: DEXAMETHASONE 6MG TABLET PO SCH (08:38)
[2021-07-28] MEDS: METOPROLOL TARTRATE 25MG TABLET PO SCH ×2 (08:38→20:37)
[2021-07-28] MEDS: FAMOTIDINE 20MG TABLET PO SCH (08:38)
[2021-07-28] MEDS: ASCORBIC ACID 500 MG TABLET PO SCH ×2 (08:38→20:49)
[2021-07-28] MEDS: ZINC SULFATE 220 MG ( 50 ) CAPSULE PO SCH (08:38)
[2021-07-28] MEDS: ENOXAPARIN 80MG/0.8ML SYR SUBCUT SCH ×2 (08:39→20:49)
[2021-07-28] MEDS: MIDAZOLAM HCL 100 MG in SODIUM CHLORIDE 0.9% 80 ML IV PRN (09:38)
[2021-07-28] MEDS: FENTANYL CITRATE/PF 2,500 MCG in SODIUM CHLORIDE 0.9% 200 ML IV PRN (09:39)
[2021-07-28 09:48] LABS: BG BASE EXCESS 6.1 mmol/L (-2.0-2.0); BG CARBOXYHEMOGLOBIN 1.2 % (0.5-1.5); BG DEOXYHEMOGLOBIN 2.2 % (0.0-5.0); BG FRACTION INSPIRED OXYGEN 100; BG HCO3 ACT 33.5 mmol/L (22.0-26.0); BG METHEMOGLOBIN 0.5 % (0.0-1.5); BG OXYGEN SATURATION 97.8 % (92.0-98.5); BG OXYHEMOGLOBIN 96.1 % (94.0-97.0); BG PCO2 60.6 mmHg (35.0-45.0); BG PO2 99.5 mmHg (75.0-100.0); BG SAMPLE SITE LEFT RADIAL; BG TOTAL HEMOGLOBIN 13.8 g/dL (12.0-18.0); BG TOTAL RESPIRATORY RATE 37 b/min; BG VENT MODE VENT - P/C
[2021-07-28 10:45] LABS: PLATELET ESTIMATE SLIGHTLY DECREASED
[2021-07-28] MEDS: CEFEPIME 2,000 MG in DEXT 5% WATER 100 ML IV SCH ×2 (11:41→21:10)
[2021-07-29] VITALS (101 sets, daily range): BP systolic 47–163; BP diastolic 23–77
[2021-07-29] MEDS: FENTANYL CITRATE/PF 2,500 MCG in SODIUM CHLORIDE 0.9% 200 ML IV PRN ×2 (00:33→14:20)
[2021-07-29] MEDS: METOCLOPRAMIDE HCL 10MG/2ML VIAL IV SCH ×4 (00:48→18:19)
[2021-07-29] MEDS: DEXT 5%/0.45% NACL 1000ML 1,000 ML IV SCH ×3 (03:21→22:45)
[2021-07-29] MEDS: MIDAZOLAM HCL 100 MG in SODIUM CHLORIDE 0.9% 80 ML IV PRN ×2 (03:29→18:19)
[2021-07-29] MEDS: IPRATROPIUM/ALBUTEROL 0.5-3(2.5)MG/3ML NEB HHN SCH ×4 (04:20→20:01)
[2021-07-29 06:04] LABS: HEMATOCRIT. 36.8 % (36.0-48.0); HEMOGLOBIN. 12.5 g/dL (12.0-16.0); MEAN CORPUSCULAR VOLUME 91.3 fL (81.0-99.0); MEAN PLATELET VOLUME 10.7 fl (7.4-10.4); PLATELET 119 x1000/uL (130-400); RED BLOOD CELL COUNT 4.03 mill/uL (4.2-5.4); RED CELL DISTRIBUTION WIDTH 14.6 % (11.6-14.6)
[2021-07-29 06:14] LABS: CHLORIDE 104 mEq/L (98-107)
[2021-07-29] MEDS: ASCORBIC ACID 500 MG TABLET PO SCH ×2 (08:31→20:11)
[2021-07-29] MEDS: FAMOTIDINE 20MG TABLET PO SCH (08:31)
[2021-07-29] MEDS: ENOXAPARIN 80MG/0.8ML SYR SUBCUT SCH ×2 (08:31→20:12)
[2021-07-29] MEDS: DEXAMETHASONE 6MG TABLET PO SCH (08:31)
[2021-07-29] MEDS: MULTIVITAMINS,THER W-MINERALS TABLET PO SCH (08:31)
[2021-07-29] MEDS: LACTULOSE 20G/30ML UDC PO SCH (08:31)
[2021-07-29] MEDS: ASPIRIN 81MG TABLET PO SCH (08:31)
[2021-07-29] MEDS: ZINC SULFATE 220 MG ( 50 ) CAPSULE PO SCH (08:31)
[2021-07-29] MEDS: METOPROLOL TARTRATE 25MG TABLET PO SCH ×2 (08:32→20:02)
[2021-07-29] MEDS: CEFEPIME 2,000 MG in DEXT 5% WATER 100 ML IV SCH ×2 (10:00→20:11)
[2021-07-29 10:02] LABS: BG BASE EXCESS 9.4 mmol/L (-2.0-2.0); BG CARBOXYHEMOGLOBIN 1.3 % (0.5-1.5); BG DEOXYHEMOGLOBIN 5.4 % (0.0-5.0); BG FRACTION INSPIRED OXYGEN 90; BG HCO3 ACT 37.3 mmol/L (22.0-26.0); BG METHEMOGLOBIN 0.4 % (0.0-1.5); BG OXYGEN SATURATION 94.5 % (92.0-98.5); BG OXYHEMOGLOBIN 92.9 % (94.0-97.0); BG PCO2 66.2 mmHg (35.0-45.0); BG PH 7.369 (7.350-7.450); BG PO2 68.4 mmHg (75.0-100.0); BG SAMPLE SITE LEFT RADIAL; BG TOTAL HEMOGLOBIN 13.7 g/dL (12.0-18.0); BG VENT MODE VENT - P/C
[2021-07-29] MEDS: PHENYLEPHRINE 100 MG in DEXT 5% WATER 240 ML IV PRN (12:01)
[2021-07-29 13:59] LABS: PLATELET ESTIMATE SLIGHTLY DECREASED
[2021-07-30] VITALS (98 sets, daily range): BP systolic 76–154; BP diastolic 31–79
[2021-07-30] MEDS: METOCLOPRAMIDE HCL 10MG/2ML VIAL IV SCH ×4 (00:13→17:35)
[2021-07-30] MEDS: FENTANYL CITRATE/PF 2,500 MCG in SODIUM CHLORIDE 0.9% 200 ML IV PRN ×3 (03:00→20:55)
[2021-07-30] MEDS: IPRATROPIUM/ALBUTEROL 0.5-3(2.5)MG/3ML NEB HHN SCH ×4 (03:47→20:01)
[2021-07-30] MEDS: MIDAZOLAM HCL 100 MG in SODIUM CHLORIDE 0.9% 80 ML IV PRN ×3 (05:44→19:33)
[2021-07-30 08:56] LABS: BG CARBOXYHEMOGLOBIN 1.1 % (0.5-1.5); BG DEOXYHEMOGLOBIN 10.3 % (0.0-5.0); BG FRACTION INSPIRED OXYGEN 90; BG HCO3 ACT 40.5 mmol/L (22.0-26.0); BG METHEMOGLOBIN 0.3 % (0.0-1.5); BG OXYGEN SATURATION 89.6 % (92.0-98.5); BG OXYHEMOGLOBIN 88.3 % (94.0-97.0); BG PCO2 81.4 mmHg (35.0-45.0); BG PH 7.315 (7.350-7.450); BG SAMPLE SITE LEFT RADIAL; BG TOTAL HEMOGLOBIN 13.2 g/dL (12.0-18.0); BG VENT MODE VENT - P/C
[2021-07-30] MEDS: METOPROLOL TARTRATE 25MG TABLET PO SCH ×2 (09:00→20:17)
[2021-07-30] MEDS: ENOXAPARIN 80MG/0.8ML SYR SUBCUT SCH ×2 (09:17→20:17)
[2021-07-30] MEDS: LACTULOSE 20G/30ML UDC PO SCH (09:17)
[2021-07-30] MEDS: ZINC SULFATE 220 MG ( 50 ) CAPSULE PO SCH (09:17)
[2021-07-30] MEDS: DEXAMETHASONE 6MG TABLET PO SCH (09:18)
[2021-07-30] MEDS: FAMOTIDINE 20MG TABLET PO SCH (09:18)
[2021-07-30] MEDS: ASPIRIN 81MG TABLET PO SCH (09:18)
[2021-07-30] MEDS: MULTIVITAMINS,THER W-MINERALS TABLET PO SCH (09:18)
[2021-07-30] MEDS: ASCORBIC ACID 500 MG TABLET PO SCH ×2 (09:24→20:17)
[2021-07-30] MEDS: CEFEPIME 2,000 MG in DEXT 5% WATER 100 ML IV SCH ×2 (10:29→20:17)
[2021-07-30 11:51] LABS: BG CARBOXYHEMOGLOBIN 1.1 % (0.5-1.5); BG FRACTION INSPIRED OXYGEN 90; BG HCO3 ACT 42.1 mmol/L (22.0-26.0); BG METHEMOGLOBIN 0.4 % (0.0-1.5); BG OXYHEMOGLOBIN 95.5 % (94.0-97.0); BG PCO2 85.3 mmHg (35.0-45.0); BG PH 7.311 (7.350-7.450); BG SAMPLE SITE LEFT RADIAL; BG TOTAL HEMOGLOBIN 13.8 g/dL (12.0-18.0); BG VENT MODE VENT - P/C
[2021-07-30] MEDS: DEXT 5%/0.45% NACL 1000ML 1,000 ML IV SCH ×2 (12:01→23:39)
[2021-07-30] MEDS: PHENYLEPHRINE 100 MG in DEXT 5% WATER 240 ML IV PRN (17:36)
[2021-07-31] VITALS (98 sets, daily range): BP systolic 67–163; BP diastolic 31–78
[2021-07-31] MEDS: METOCLOPRAMIDE HCL 10MG/2ML VIAL IV SCH ×4 (00:26→18:02)
[2021-07-31] MEDS: IPRATROPIUM/ALBUTEROL 0.5-3(2.5)MG/3ML NEB HHN SCH ×4 (04:04→20:55)
[2021-07-31] MEDS: MIDAZOLAM HCL 100 MG in SODIUM CHLORIDE 0.9% 80 ML IV PRN ×2 (05:11→15:51)
[2021-07-31] MEDS: FENTANYL CITRATE/PF 2,500 MCG in SODIUM CHLORIDE 0.9% 200 ML IV PRN ×2 (07:50→18:00)
[2021-07-31] MEDS: FAMOTIDINE 20MG TABLET PO SCH (08:06)
[2021-07-31] MEDS: DEXAMETHASONE 6MG TABLET PO SCH (08:06)
[2021-07-31] MEDS: ZINC SULFATE 220 MG ( 50 ) CAPSULE PO SCH (08:06)
[2021-07-31] MEDS: METOPROLOL TARTRATE 25MG TABLET PO SCH ×2 (08:06→21:00)
[2021-07-31] MEDS: LACTULOSE 20G/30ML UDC PO SCH (08:06)
[2021-07-31] MEDS: ASCORBIC ACID 500 MG TABLET PO SCH ×2 (08:06→21:26)
[2021-07-31] MEDS: ASPIRIN 81MG TABLET PO SCH (08:06)
[2021-07-31] MEDS: MULTIVITAMINS,THER W-MINERALS TABLET PO SCH (08:06)
[2021-07-31] MEDS: ENOXAPARIN 80MG/0.8ML SYR SUBCUT SCH ×2 (08:07→21:27)
[2021-07-31] MEDS: CEFEPIME 2,000 MG in DEXT 5% WATER 100 ML IV SCH ×2 (09:09→21:26)
[2021-07-31 09:16] LABS: BG BASE EXCESS 12.6 mmol/L (-2.0-2.0); BG DEOXYHEMOGLOBIN 2.2 % (0.0-5.0); BG FRACTION INSPIRED OXYGEN 90; BG HCO3 ACT 42.6 mmol/L (22.0-26.0); BG METHEMOGLOBIN 0.4 % (0.0-1.5); BG OXYGEN SATURATION 97.8 % (92.0-98.5); BG OXYHEMOGLOBIN 96.4 % (94.0-97.0); BG PH 7.308 (7.350-7.450); BG PO2 104.7 mmHg (75.0-100.0); BG SAMPLE SITE LEFT RADIAL; BG TOTAL HEMOGLOBIN 13.1 g/dL (12.0-18.0); BG VENT MODE VENT - P/C
[2021-07-31 11:50] LABS: HEMATOCRIT. 35.6 % (36.0-48.0); HEMOGLOBIN. 12.1 g/dL (12.0-16.0); MEAN CORPUSCULAR HEMOGLOBIN 31.3 pg (28.0-32.0); MEAN CORPUSCULAR VOLUME 91.7 fL (81.0-99.0); MEAN PLATELET VOLUME 10.6 fl (7.4-10.4); PLATELET 167 x1000/uL (130-400); RED BLOOD CELL COUNT 3.88 mill/uL (4.2-5.4); RED CELL DISTRIBUTION WIDTH 14.2 % (11.6-14.6)
[2021-07-31 12:27] LABS: CHLORIDE 103 mEq/L (98-107)
[2021-07-31 13:12] LABS: PLATELET ESTIMATE NORMAL
[2021-07-31] MEDS: DEXT 5%/0.45% NACL 1000ML 1,000 ML IV SCH (14:46)
[2021-08-01] VITALS (95 sets, daily range): BP systolic 82–136; BP diastolic 44–72
[2021-08-01] MEDS: METOCLOPRAMIDE HCL 10MG/2ML VIAL IV SCH ×5 (01:00→23:15)
[2021-08-01] MEDS: MIDAZOLAM HCL 100 MG in SODIUM CHLORIDE 0.9% 80 ML IV PRN ×3 (02:21→23:36)
[2021-08-01] MEDS: IPRATROPIUM/ALBUTEROL 0.5-3(2.5)MG/3ML NEB HHN SCH ×4 (02:54→20:40)
[2021-08-01] MEDS: DEXT 5%/0.45% NACL 1000ML 1,000 ML IV SCH ×3 (04:05→17:15)
[2021-08-01] MEDS: FENTANYL CITRATE/PF 2,500 MCG in SODIUM CHLORIDE 0.9% 200 ML IV PRN ×2 (04:25→15:15)
[2021-08-01 08:32] LABS: BG BASE EXCESS 10.6 mmol/L (-2.0-2.0); BG CARBOXYHEMOGLOBIN 0.8 % (0.5-1.5); BG DEOXYHEMOGLOBIN 10.4 % (0.0-5.0); BG HCO3 ACT 36.8 mmol/L (22.0-26.0); BG METHEMOGLOBIN 0.1 % (0.0-1.5); BG OXYGEN SATURATION 89.5 % (92.0-98.5); BG OXYHEMOGLOBIN 88.7 % (94.0-97.0); BG PCO2 56.1 mmHg (35.0-45.0); BG PH 7.435 (7.350-7.450); BG SAMPLE SITE LEFT RADIAL; BG TOTAL HEMOGLOBIN 13.1 g/dL (12.0-18.0); BG VENT MODE VENT - P/C
[2021-08-01] MEDS: METOPROLOL TARTRATE 25MG TABLET PO SCH ×2 (09:00→20:37)
[2021-08-01] MEDS: ASPIRIN 81MG TABLET PO SCH (09:26)
[2021-08-01] MEDS: ENOXAPARIN 80MG/0.8ML SYR SUBCUT SCH ×2 (09:26→20:37)
[2021-08-01] MEDS: FAMOTIDINE 20MG TABLET PO SCH (09:26)
[2021-08-01] MEDS: MULTIVITAMINS,THER W-MINERALS TABLET PO SCH (09:26)
[2021-08-01] MEDS: ASCORBIC ACID 500 MG TABLET PO SCH ×2 (09:26→20:37)
[2021-08-01] MEDS: DEXAMETHASONE 6MG TABLET PO SCH (09:26)
[2021-08-01] MEDS: LACTULOSE 20G/30ML UDC PO SCH (09:26)
[2021-08-01] MEDS: ZINC SULFATE 220 MG ( 50 ) CAPSULE PO SCH (09:26)
[2021-08-01] MEDS: PHENYLEPHRINE 100 MG in DEXT 5% WATER 240 ML IV PRN (19:07)
[2021-08-02] VITALS (94 sets, daily range): BP systolic 84–131; BP diastolic 35–77
[2021-08-02] MEDS: IPRATROPIUM/ALBUTEROL 0.5-3(2.5)MG/3ML NEB HHN SCH ×4 (00:31→21:04)
[2021-08-02] MEDS: FENTANYL CITRATE/PF 2,500 MCG in SODIUM CHLORIDE 0.9% 200 ML IV PRN ×3 (01:49→22:56)
[2021-08-02] MEDS: DEXT 5%/0.45% NACL 1000ML 1,000 ML IV SCH ×2 (05:00→05:27)
[2021-08-02] MEDS: METOCLOPRAMIDE HCL 10MG/2ML VIAL IV SCH ×3 (05:27→19:02)
[2021-08-02] MEDS: METOPROLOL TARTRATE 25MG TABLET PO SCH ×2 (09:00→21:00)
[2021-08-02 09:02] LABS: BG BASE EXCESS 11.9 mmol/L (-2.0-2.0); BG CARBOXYHEMOGLOBIN 0.4 % (0.5-1.5); BG DEOXYHEMOGLOBIN 7.2 % (0.0-5.0); BG FRACTION INSPIRED OXYGEN 75; BG HCO3 ACT 39.3 mmol/L (22.0-26.0); BG METHEMOGLOBIN 0.1 % (0.0-1.5); BG OXYGEN SATURATION 92.8 % (92.0-98.5); BG OXYHEMOGLOBIN 92.3 % (94.0-97.0); BG PCO2 64.4 mmHg (35.0-45.0); BG PH 7.403 (7.350-7.450); BG PO2 65.1 mmHg (75.0-100.0); BG SAMPLE SITE LEFT RADIAL; BG TOTAL HEMOGLOBIN 12.9 g/dL (12.0-18.0); BG VENT MODE VENT - P/C
[2021-08-02] MEDS: LACTULOSE 20G/30ML UDC PO SCH (09:05)
[2021-08-02] MEDS: ENOXAPARIN 80MG/0.8ML SYR SUBCUT SCH ×2 (09:06→21:19)
[2021-08-02] MEDS: ASPIRIN 81MG TABLET PO SCH (09:06)
[2021-08-02] MEDS: DEXAMETHASONE 6MG TABLET PO SCH (09:06)
[2021-08-02] MEDS: ASCORBIC ACID 500 MG TABLET PO SCH ×2 (09:06→21:19)
[2021-08-02] MEDS: FAMOTIDINE 20MG TABLET PO SCH (09:06)
[2021-08-02] MEDS: MULTIVITAMINS,THER W-MINERALS TABLET PO SCH (09:06)
[2021-08-02] MEDS: ZINC SULFATE 220 MG ( 50 ) CAPSULE PO SCH (09:06)
[2021-08-02] MEDS: MIDAZOLAM HCL 100 MG in SODIUM CHLORIDE 0.9% 80 ML IV PRN ×2 (10:29→21:48)
[2021-08-03] VITALS (95 sets, daily range): BP systolic 82–137; BP diastolic 33–116
[2021-08-03] MEDS: METOCLOPRAMIDE HCL 10MG/2ML VIAL IV SCH ×5 (00:24→23:40)
[2021-08-03] MEDS: DEXT 5%/0.45% NACL 1000ML 1,000 ML IV SCH ×2 (01:25→09:11)
[2021-08-03] MEDS: IPRATROPIUM/ALBUTEROL 0.5-3(2.5)MG/3ML NEB HHN SCH ×4 (04:11→19:56)
[2021-08-03 06:14] LABS: CHLORIDE 101 mEq/L (98-107)
[2021-08-03 06:18] LABS: HEMATOCRIT. 37.8 % (36.0-48.0); HEMOGLOBIN. 12.4 g/dL (12.0-16.0); MEAN CORPUSCULAR HEMOGLOBIN 30.2 pg (28.0-32.0); MEAN CORPUSCULAR VOLUME 92.1 fL (81.0-99.0); MEAN PLATELET VOLUME 11.1 fl (7.4-10.4); PLATELET 205 x1000/uL (130-400); RED BLOOD CELL COUNT 4.11 mill/uL (4.2-5.4); RED CELL DISTRIBUTION WIDTH 14.7 % (11.6-14.6)
[2021-08-03] MEDS: MIDAZOLAM HCL 100 MG in SODIUM CHLORIDE 0.9% 80 ML IV PRN ×2 (06:22→17:00)
[2021-08-03] MEDS: FENTANYL CITRATE/PF 2,500 MCG in SODIUM CHLORIDE 0.9% 200 ML IV PRN ×2 (07:49→17:01)
[2021-08-03] MEDS: PHENYLEPHRINE 100 MG in DEXT 5% WATER 240 ML IV PRN (07:51)
[2021-08-03 08:33] LABS: BG BASE EXCESS 9.8 mmol/L (-2.0-2.0); BG DEOXYHEMOGLOBIN 2.6 % (0.0-5.0); BG HCO3 ACT 36.8 mmol/L (22.0-26.0); BG METHEMOGLOBIN 0.1 % (0.0-1.5); BG OXYGEN SATURATION 97.4 % (92.0-98.5); BG OXYHEMOGLOBIN 96.3 % (94.0-97.0); BG PCO2 61.7 mmHg (35.0-45.0); BG PH 7.393 (7.350-7.450); BG PO2 99.5 mmHg (75.0-100.0); BG SAMPLE SITE RIGHT RADIAL; BG TOTAL HEMOGLOBIN 11.9 g/dL (12.0-18.0); BG VENT MODE VENT - P/C
[2021-08-03] MEDS: METOPROLOL TARTRATE 25MG TABLET PO SCH ×2 (09:00→21:34)
[2021-08-03] MEDS: LACTULOSE 20G/30ML UDC PO SCH (09:10)
[2021-08-03] MEDS: ENOXAPARIN 80MG/0.8ML SYR SUBCUT SCH ×2 (09:10→21:45)
[2021-08-03] MEDS: FAMOTIDINE 20MG TABLET PO SCH (09:11)
[2021-08-03] MEDS: ASPIRIN 81MG TABLET PO SCH (09:11)
[2021-08-03] MEDS: ZINC SULFATE 220 MG ( 50 ) CAPSULE PO SCH (09:11)
[2021-08-03] MEDS: MULTIVITAMINS,THER W-MINERALS TABLET PO SCH (09:11)
[2021-08-03] MEDS: ASCORBIC ACID 500 MG TABLET PO SCH ×2 (09:11→21:34)
[2021-08-03] MEDS: DEXAMETHASONE 6MG TABLET PO SCH (09:11)
[2021-08-03 10:13] LABS: NUCLEATED RED BLOOD CELLS 1 /100 WBC; PLATELET ESTIMATE NORMAL
[2021-08-03] MEDS: PROPOFOL 10MG/ML 100ML 100 ML IV PRN (23:00)
[2021-08-04] VITALS (93 sets, daily range): BP systolic 80–127; BP diastolic 46–78
[2021-08-04] MEDS: IPRATROPIUM/ALBUTEROL 0.5-3(2.5)MG/3ML NEB HHN SCH ×4 (03:56→19:57)
[2021-08-04] MEDS: FENTANYL CITRATE/PF 2,500 MCG in SODIUM CHLORIDE 0.9% 200 ML IV PRN ×2 (05:02→17:25)
[2021-08-04] MEDS: PROPOFOL 10MG/ML 100ML 100 ML IV PRN ×2 (05:56→09:00)
[2021-08-04] MEDS: METOCLOPRAMIDE HCL 10MG/2ML VIAL IV SCH ×3 (05:59→17:24)
[2021-08-04] MEDS: LACTULOSE 20G/30ML UDC PO SCH (08:49)
[2021-08-04] MEDS: PHENYLEPHRINE 100 MG in DEXT 5% WATER 240 ML IV PRN (08:50)
[2021-08-04] MEDS: ASPIRIN 81MG TABLET PO SCH (08:51)
[2021-08-04] MEDS: ASCORBIC ACID 500 MG TABLET PO SCH ×2 (08:51→20:32)
[2021-08-04] MEDS: ZINC SULFATE 220 MG ( 50 ) CAPSULE PO SCH (08:51)
[2021-08-04] MEDS: MIDAZOLAM HCL 100 MG in SODIUM CHLORIDE 0.9% 80 ML IV PRN ×2 (08:51→20:32)
[2021-08-04] MEDS: DEXAMETHASONE 6MG TABLET PO SCH (08:52)
[2021-08-04] MEDS: MULTIVITAMINS,THER W-MINERALS TABLET PO SCH (08:52)
[2021-08-04] MEDS: FAMOTIDINE 20MG TABLET PO SCH (08:52)
[2021-08-04] MEDS: ENOXAPARIN 80MG/0.8ML SYR SUBCUT SCH ×2 (08:57→20:31)
[2021-08-04] MEDS: METOPROLOL TARTRATE 25MG TABLET PO SCH ×2 (08:57→20:15)
[2021-08-04 09:03] LABS: BG BASE EXCESS 7.4 mmol/L (-2.0-2.0); BG CARBOXYHEMOGLOBIN 0.3 % (0.5-1.5); BG DEOXYHEMOGLOBIN 1.7 % (0.0-5.0); BG FRACTION INSPIRED OXYGEN 100; BG HCO3 ACT 34.9 mmol/L (22.0-26.0); BG METHEMOGLOBIN 0.3 % (0.0-1.5); BG OXYGEN SATURATION 98.3 % (92.0-98.5); BG OXYHEMOGLOBIN 97.7 % (94.0-97.0); BG PCO2 68.7 mmHg (35.0-45.0); BG PH 7.324 (7.350-7.450); BG PO2 137.5 mmHg (75.0-100.0); BG SAMPLE SITE LEFT RADIAL; BG TOTAL HEMOGLOBIN 9.6 g/dL (12.0-18.0); BG VENT MODE VENT - P/C
[2021-08-04] MEDS: DEXT 5%/0.45% NACL 1000ML 1,000 ML IV SCH (12:43)
[2021-08-04] MEDS ORDERED: PROPOFOL 10MG/ML 100ML 100 ML IV PRN (17:15)
[2021-08-04] MEDS: NYSTATIN POWDER 15GM TOP SCH (20:31)
[2021-08-05] VITALS (104 sets, daily range): BP systolic 65–130; BP diastolic 20–76
[2021-08-05] MEDS: METOCLOPRAMIDE HCL 10MG/2ML VIAL IV SCH ×5 (00:06→23:20)
[2021-08-05] MEDS: IPRATROPIUM/ALBUTEROL 0.5-3(2.5)MG/3ML NEB HHN SCH ×4 (00:15→20:14)
[2021-08-05] MEDS: DEXT 5%/0.45% NACL 1000ML 1,000 ML IV SCH ×2 (02:22→15:36)
[2021-08-05] MEDS: FENTANYL CITRATE/PF 2,500 MCG in SODIUM CHLORIDE 0.9% 200 ML IV PRN ×3 (02:23→16:25)
[2021-08-05] MEDS: PHENYLEPHRINE 100 MG in DEXT 5% WATER 240 ML IV PRN ×2 (02:40→17:22)
[2021-08-05] MEDS: MIDAZOLAM HCL 100 MG in SODIUM CHLORIDE 0.9% 80 ML IV PRN ×3 (03:13→16:25)
[2021-08-05 05:22] LABS: CHLORIDE 101 mEq/L (98-107)
[2021-08-05 08:06] LABS: BG BASE EXCESS 7.7 mmol/L (-2.0-2.0); BG CARBOXYHEMOGLOBIN 0.5 % (0.5-1.5); BG DEOXYHEMOGLOBIN 1.4 % (0.0-5.0); BG HCO3 ACT 33.9 mmol/L (22.0-26.0); BG METHEMOGLOBIN 0.3 % (0.0-1.5); BG OXYGEN SATURATION 98.6 % (92.0-98.5); BG OXYHEMOGLOBIN 97.8 % (94.0-97.0); BG PO2 128.5 mmHg (75.0-100.0); BG SAMPLE SITE LEFT RADIAL; BG TOTAL HEMOGLOBIN 7.4 g/dL (12.0-18.0); BG VENT MODE VENT - P/C
[2021-08-05] MEDS: LACTULOSE 20G/30ML UDC PO SCH (09:00)
[2021-08-05] MEDS: METOPROLOL TARTRATE 25MG TABLET PO SCH ×2 (09:00→20:39)
[2021-08-05] MEDS: ZINC SULFATE 220 MG ( 50 ) CAPSULE PO SCH (09:03)
[2021-08-05] MEDS: ASCORBIC ACID 500 MG TABLET PO SCH ×2 (09:03→20:39)
[2021-08-05] MEDS: DEXAMETHASONE 6MG TABLET PO SCH (09:03)
[2021-08-05] MEDS: ASPIRIN 81MG TABLET PO SCH (09:03)
[2021-08-05] MEDS: MULTIVITAMINS,THER W-MINERALS TABLET PO SCH (09:03)
[2021-08-05] MEDS: FAMOTIDINE 20MG TABLET PO SCH (09:03)
[2021-08-05] MEDS: ENOXAPARIN 80MG/0.8ML SYR SUBCUT SCH (09:04)
[2021-08-05] MEDS: NYSTATIN POWDER 15GM TOP SCH ×3 (09:05→16:24)
[2021-08-05 09:06] LABS: HEMATOCRIT. 21.5 % (36.0-48.0); HEMOGLOBIN. 7.2 g/dL (12.0-16.0); MEAN CORPUSCULAR HEMOGLOBIN 30.8 pg (28.0-32.0); MEAN CORPUSCULAR VOLUME 92.6 fL (81.0-99.0); MEAN PLATELET VOLUME 10.5 fl (7.4-10.4); PLATELET 192 x1000/uL (130-400); RED BLOOD CELL COUNT 2.32 mill/uL (4.2-5.4); RED CELL DISTRIBUTION WIDTH 14.6 % (11.6-14.6)
[2021-08-05 09:53] LABS: CHLORIDE 102 mEq/L (98-107)
[2021-08-05 10:03] LABS: NUCLEATED RED BLOOD CELLS 5 /100 WBC; PLATELET ESTIMATE NORMAL
[2021-08-05 11:33] LABS: MEAN CORPUSCULAR HEMOGLOBIN 30.4 pg (28.0-32.0); MEAN CORPUSCULAR VOLUME 91.9 fL (81.0-99.0); MEAN PLATELET VOLUME 10.4 fl (7.4-10.4); PLATELET 188 x1000/uL (130-400); RED BLOOD CELL COUNT 2.18 mill/uL (4.2-5.4); RED CELL DISTRIBUTION WIDTH 14.7 % (11.6-14.6)
[2021-08-05 11:35] LABS: HEMOGLOBIN. 6.6 g/dL (12.0-16.0)
[2021-08-05 11:36] LABS: HEMATOCRIT. 20.1 % (36.0-48.0)
[2021-08-05 12:43] LABS: NUCLEATED RED BLOOD CELLS 4 /100 WBC; PLATELET ESTIMATE NORMAL
[2021-08-05] MEDS ORDERED: IOHEXOL-300 100 ML BOTTLE ONE (13:01)
[2021-08-05] MEDS: PANTOPRAZOLE SODIUM 40 MG/VIAL IV SCH ×2 (13:20→20:39)
[2021-08-05 19:20] LABS: HEMATOCRIT 24.4 % (36.0-48.0)
[2021-08-05] MEDS ORDERED: SODIUM POLYSTYRENE SULFONATE 15 G/60 ML BOT NG NR (21:00)
[2021-08-06] VITALS (97 sets, daily range): BP systolic 76–140; BP diastolic 39–69
[2021-08-06] MEDS: MIDAZOLAM HCL 100 MG in SODIUM CHLORIDE 0.9% 80 ML IV PRN ×4 (00:18→22:34)
[2021-08-06] MEDS: FENTANYL CITRATE/PF 2,500 MCG in SODIUM CHLORIDE 0.9% 200 ML IV PRN ×4 (00:18→22:33)
[2021-08-06] MEDS: IPRATROPIUM/ALBUTEROL 0.5-3(2.5)MG/3ML NEB HHN SCH ×4 (01:03→20:29)
[2021-08-06] MEDS: DEXT 5%/0.45% NACL 1000ML 1,000 ML IV SCH ×2 (03:12→17:17)
[2021-08-06] MEDS: METOCLOPRAMIDE HCL 10MG/2ML VIAL IV SCH ×4 (06:28→23:06)
[2021-08-06] MEDS: PHENYLEPHRINE 100 MG in DEXT 5% WATER 240 ML IV PRN ×2 (07:13→20:54)
[2021-08-06 08:20] LABS: BG CARBOXYHEMOGLOBIN 1.7 % (0.5-1.5); BG DEOXYHEMOGLOBIN 2.2 % (0.0-5.0); BG FRACTION INSPIRED OXYGEN 90; BG METHEMOGLOBIN 0.2 % (0.0-1.5); BG OXYGEN SATURATION 97.8 % (92.0-98.5); BG OXYHEMOGLOBIN 95.9 % (94.0-97.0); BG PCO2 77.1 mmHg (35.0-45.0); BG PH 7.287 (7.350-7.450); BG PO2 107.2 mmHg (75.0-100.0); BG SAMPLE SITE RIGHT RADIAL; BG TOTAL HEMOGLOBIN 8.2 g/dL (12.0-18.0); BG VENT MODE VENT - P/C
[2021-08-06] MEDS: METOPROLOL TARTRATE 25MG TABLET PO SCH ×2 (09:00→20:54)
[2021-08-06] MEDS: LACTULOSE 20G/30ML UDC PO SCH (09:41)
[2021-08-06] MEDS: ASCORBIC ACID 500 MG TABLET PO SCH ×2 (09:41→20:54)
[2021-08-06] MEDS: MULTIVITAMINS,THER W-MINERALS TABLET PO SCH (09:41)
[2021-08-06] MEDS: PANTOPRAZOLE SODIUM 40 MG/VIAL IV SCH ×2 (09:41→20:54)
[2021-08-06] MEDS: ZINC SULFATE 220 MG ( 50 ) CAPSULE PO SCH (09:41)
[2021-08-06] MEDS: DEXAMETHASONE 6MG TABLET PO SCH (09:41)
[2021-08-06] MEDS: ASPIRIN 81MG TABLET PO SCH (09:41)
[2021-08-06] MEDS: NYSTATIN POWDER 15GM TOP SCH ×3 (09:42→17:16)
[2021-08-06 19:52] LABS: HEMATOCRIT. 22.6 % (36.0-48.0); HEMOGLOBIN. 7.6 g/dL (12.0-16.0); MEAN CORPUSCULAR HEMOGLOBIN 30.2 pg (28.0-32.0); MEAN CORPUSCULAR VOLUME 90.2 fL (81.0-99.0); MEAN PLATELET VOLUME 10.1 fl (7.4-10.4); PLATELET 188 x1000/uL (130-400); RED CELL DISTRIBUTION WIDTH 17.3 % (11.6-14.6)
[2021-08-06 19:57] LABS: CHLORIDE 105 mEq/L (98-107)
[2021-08-06 21:05] LABS: NUCLEATED RED BLOOD CELLS 6 /100 WBC; PLATELET ESTIMATE NORMAL
[2021-08-06] MEDS ORDERED: PROPOFOL 10MG/ML 100ML 100 ML IV PRN (21:21)
[2021-08-07] VITALS (104 sets, daily range): BP systolic 89–144; BP diastolic 39–69
[2021-08-07] MEDS: IPRATROPIUM/ALBUTEROL 0.5-3(2.5)MG/3ML NEB HHN SCH ×4 (03:35→20:29)
[2021-08-07] MEDS: METOCLOPRAMIDE HCL 10MG/2ML VIAL IV SCH ×3 (05:30→17:53)
[2021-08-07] MEDS: FENTANYL CITRATE/PF 2,500 MCG in SODIUM CHLORIDE 0.9% 200 ML IV PRN ×3 (05:31→18:26)
[2021-08-07] MEDS: DEXT 5%/0.45% NACL 1000ML 1,000 ML IV SCH (05:31)
[2021-08-07] MEDS: MIDAZOLAM HCL 100 MG in SODIUM CHLORIDE 0.9% 80 ML IV PRN ×3 (05:32→18:25)
[2021-08-07 05:34] LABS: MEAN CORPUSCULAR HEMOGLOBIN 30.1 pg (28.0-32.0); MEAN CORPUSCULAR VOLUME 90.1 fL (81.0-99.0); PLATELET 199 x1000/uL (130-400); RED BLOOD CELL COUNT 2.33 mill/uL (4.2-5.4); RED CELL DISTRIBUTION WIDTH 17.3 % (11.6-14.6)
[2021-08-07 05:39] LABS: CHLORIDE 105 mEq/L (98-107)
[2021-08-07 08:16] LABS: BG BASE EXCESS 11.3 mmol/L (-2.0-2.0); BG CARBOXYHEMOGLOBIN 0.7 % (0.5-1.5); BG FRACTION INSPIRED OXYGEN 75; BG HCO3 ACT 37.3 mmol/L (22.0-26.0); BG METHEMOGLOBIN 0.1 % (0.0-1.5); BG OXYHEMOGLOBIN 93.2 % (94.0-97.0); BG PH 7.404 (7.350-7.450); BG PO2 66.5 mmHg (75.0-100.0); BG SAMPLE SITE RIGHT RADIAL; BG TOTAL HEMOGLOBIN 7.4 g/dL (12.0-18.0); BG VENT MODE VENT - P/C
[2021-08-07] MEDS: METOPROLOL TARTRATE 25MG TABLET PO SCH ×2 (09:20→21:00)
[2021-08-07] MEDS: PANTOPRAZOLE SODIUM 40 MG/VIAL IV SCH ×2 (09:20→21:31)
[2021-08-07] MEDS: ZINC SULFATE 220 MG ( 50 ) CAPSULE PO SCH (09:20)
[2021-08-07] MEDS: MULTIVITAMINS,THER W-MINERALS TABLET PO SCH (09:20)
[2021-08-07] MEDS: DEXAMETHASONE 6MG TABLET PO SCH (09:20)
[2021-08-07] MEDS: LACTULOSE 20G/30ML UDC PO SCH (09:20)
[2021-08-07] MEDS: NYSTATIN POWDER 15GM TOP SCH ×3 (09:22→17:53)
[2021-08-07] MEDS: BISACODYL 10MG SUPP PR PRN (10:29)
[2021-08-07] MEDS: PHENYLEPHRINE 100 MG in DEXT 5% WATER 240 ML IV PRN (10:30)
[2021-08-07 12:01] LABS: HEMATOCRIT 26.2 % (36.0-48.0); HEMOGLOBIN 8.9 g/dL (12.0-16.0); MEAN CORPUSCULAR HEMOGLOBIN 30.5 pg (28.0-32.0); MEAN CORPUSCULAR VOLUME 90.1 fL (81.0-99.0); PLATELET 205 x1000/uL (130-400); RED BLOOD CELL COUNT 2.91 mill/uL (4.2-5.4); RED CELL DISTRIBUTION WIDTH 16.2 % (11.6-14.6)
[2021-08-07 12:03] LABS: CHLORIDE 106 mEq/L (98-107)
[2021-08-07 12:14] LABS: INR 0.9; PROTHROMBIN TIME 10.2 sec (9.6-11.0)
[2021-08-07 15:58] LABS: NUCLEATED RED BLOOD CELLS 4 /100 WBC; PLATELET ESTIMATE NORMAL
[2021-08-08] VITALS (96 sets, daily range): BP systolic 92–134; BP diastolic 42–79
[2021-08-08] MEDS: METOCLOPRAMIDE HCL 10MG/2ML VIAL IV SCH ×4 (00:08→17:46)
[2021-08-08] MEDS: PHENYLEPHRINE 100 MG in DEXT 5% WATER 240 ML IV PRN ×2 (01:49→20:10)
[2021-08-08] MEDS: MIDAZOLAM HCL 100 MG in SODIUM CHLORIDE 0.9% 80 ML IV PRN ×3 (02:28→17:47)
[2021-08-08] MEDS: DEXT 5%/0.45% NACL 1000ML 1,000 ML IV SCH ×3 (03:50→23:03)
[2021-08-08] MEDS: FENTANYL CITRATE/PF 2,500 MCG in SODIUM CHLORIDE 0.9% 200 ML IV PRN ×3 (03:59→20:03)
[2021-08-08] MEDS: IPRATROPIUM/ALBUTEROL 0.5-3(2.5)MG/3ML NEB HHN SCH ×4 (04:01→20:21)
[2021-08-08 05:45] LABS: CHLORIDE 106 mEq/L (98-107)
[2021-08-08 05:47] LABS: HEMATOCRIT. 26.4 % (36.0-48.0); HEMOGLOBIN. 8.8 g/dL (12.0-16.0); MEAN CORPUSCULAR HEMOGLOBIN 30.7 pg (28.0-32.0); MEAN PLATELET VOLUME 10.3 fl (7.4-10.4); PLATELET 214 x1000/uL (130-400); RED BLOOD CELL COUNT 2.87 mill/uL (4.2-5.4); RED CELL DISTRIBUTION WIDTH 16.8 % (11.6-14.6)
[2021-08-08 08:29] LABS: BG BASE EXCESS 11.9 mmol/L (-2.0-2.0); BG CARBOXYHEMOGLOBIN 1.1 % (0.5-1.5); BG DEOXYHEMOGLOBIN 3.4 % (0.0-5.0); BG HCO3 ACT 37.6 mmol/L (22.0-26.0); BG METHEMOGLOBIN 0.3 % (0.0-1.5); BG OXYGEN SATURATION 96.6 % (92.0-98.5); BG OXYHEMOGLOBIN 95.2 % (94.0-97.0); BG PH 7.437 (7.350-7.450); BG PO2 82.1 mmHg (75.0-100.0); BG SAMPLE SITE RIGHT RADIAL; BG TOTAL HEMOGLOBIN 8.7 g/dL (12.0-18.0); BG VENT MODE VENT - P/C
[2021-08-08] MEDS: METOPROLOL TARTRATE 25MG TABLET PO SCH ×2 (09:00→21:00)
[2021-08-08] MEDS: LACTULOSE 20G/30ML UDC PO SCH (09:44)
[2021-08-08] MEDS: DEXAMETHASONE 6MG TABLET PO SCH (09:45)
[2021-08-08] MEDS: MULTIVITAMINS,THER W-MINERALS TABLET PO SCH (09:45)
[2021-08-08] MEDS: PANTOPRAZOLE SODIUM 40 MG/VIAL IV SCH ×2 (09:45→21:19)
[2021-08-08 19:06] LABS: NUCLEATED RED BLOOD CELLS 11 /100 WBC; PLATELET ESTIMATE NORMAL
[2021-08-09] VITALS (96 sets, daily range): BP systolic 56–153; BP diastolic 25–100
[2021-08-09] MEDS: METOCLOPRAMIDE HCL 10MG/2ML VIAL IV SCH ×4 (00:57→18:31)
[2021-08-09] MEDS: MIDAZOLAM HCL 100 MG in SODIUM CHLORIDE 0.9% 80 ML IV PRN ×4 (00:58→23:24)
[2021-08-09] MEDS: FENTANYL CITRATE/PF 2,500 MCG in SODIUM CHLORIDE 0.9% 200 ML IV PRN ×3 (03:21→18:30)
[2021-08-09] MEDS: IPRATROPIUM/ALBUTEROL 0.5-3(2.5)MG/3ML NEB HHN SCH ×4 (04:30→20:04)
[2021-08-09 05:43] LABS: HEMATOCRIT. 24.8 % (36.0-48.0); HEMOGLOBIN. 8.2 g/dL (12.0-16.0); MEAN CORPUSCULAR HEMOGLOBIN 30.6 pg (28.0-32.0); MEAN CORPUSCULAR VOLUME 92.4 fL (81.0-99.0); MEAN PLATELET VOLUME 9.5 fl (7.4-10.4); PLATELET 193 x1000/uL (130-400); RED BLOOD CELL COUNT 2.68 mill/uL (4.2-5.4); RED CELL DISTRIBUTION WIDTH 16.2 % (11.6-14.6)
[2021-08-09 05:54] LABS: CHLORIDE 106 mEq/L (98-107)
[2021-08-09 08:23] LABS: BG BASE EXCESS 11.4 mmol/L (-2.0-2.0); BG DEOXYHEMOGLOBIN 6.6 % (0.0-5.0); BG FRACTION INSPIRED OXYGEN 70; BG HCO3 ACT 37.1 mmol/L (22.0-26.0); BG METHEMOGLOBIN 0.4 % (0.0-1.5); BG OXYGEN SATURATION 93.3 % (92.0-98.5); BG PCO2 56.1 mmHg (35.0-45.0); BG PH 7.438 (7.350-7.450); BG PO2 65.3 mmHg (75.0-100.0); BG SAMPLE SITE RIGHT RADIAL; BG TOTAL HEMOGLOBIN 9.3 g/dL (12.0-18.0); BG VENT MODE VENT - P/C
[2021-08-09] MEDS: METOPROLOL TARTRATE 25MG TABLET PO SCH ×2 (09:00→20:49)
[2021-08-09] MEDS: MULTIVITAMINS,THER W-MINERALS TABLET PO SCH (10:52)
[2021-08-09] MEDS: PANTOPRAZOLE SODIUM 40 MG/VIAL IV SCH ×2 (10:52→20:53)
[2021-08-09] MEDS: LACTULOSE 20G/30ML UDC PO SCH (10:52)
[2021-08-09 13:45] LABS: NUCLEATED RED BLOOD CELLS 3 /100 WBC; PLATELET ESTIMATE NORMAL
[2021-08-09] MEDS: DEXT 5%/0.45% NACL 1000ML 1,000 ML IV SCH (14:09)
[2021-08-09] MEDS: PHENYLEPHRINE 100 MG in DEXT 5% WATER 240 ML IV PRN (18:44)
[2021-08-09] MEDS ORDERED: PROPOFOL 10MG/ML 100ML 100 ML IV PRN (20:00)
[2021-08-10] VITALS (96 sets, daily range): BP systolic 88–145; BP diastolic 40–68
[2021-08-10] MEDS: DEXT 5%/0.45% NACL 1000ML 1,000 ML IV SCH ×2 (01:01→12:38)
[2021-08-10] MEDS: METOCLOPRAMIDE HCL 10MG/2ML VIAL IV SCH ×4 (01:01→17:45)
[2021-08-10] MEDS: FENTANYL CITRATE/PF 2,500 MCG in SODIUM CHLORIDE 0.9% 200 ML IV PRN ×4 (01:38→23:41)
[2021-08-10] MEDS: IPRATROPIUM/ALBUTEROL 0.5-3(2.5)MG/3ML NEB HHN SCH ×4 (02:21→20:49)
[2021-08-10] MEDS: MIDAZOLAM HCL 100 MG in SODIUM CHLORIDE 0.9% 80 ML IV PRN ×3 (06:14→18:05)
[2021-08-10] MEDS: PANTOPRAZOLE SODIUM 40 MG/VIAL IV SCH ×2 (08:19→21:02)
[2021-08-10] MEDS: LACTULOSE 20G/30ML UDC PO SCH (08:19)
[2021-08-10] MEDS: MULTIVITAMINS,THER W-MINERALS TABLET PO SCH (08:19)
[2021-08-10] MEDS: METOPROLOL TARTRATE 25MG TABLET PO SCH ×2 (08:20→20:57)
[2021-08-10] MEDS: PHENYLEPHRINE 100 MG in DEXT 5% WATER 240 ML IV PRN ×2 (08:21→18:07)
[2021-08-10 09:37] LABS: BG BASE EXCESS 8.9 mmol/L (-2.0-2.0); BG CARBOXYHEMOGLOBIN 1.5 % (0.5-1.5); BG DEOXYHEMOGLOBIN 11.3 % (0.0-5.0); BG FRACTION INSPIRED OXYGEN 60; BG HCO3 ACT 34.2 mmol/L (22.0-26.0); BG OXYGEN SATURATION 88.5 % (92.0-98.5); BG OXYHEMOGLOBIN 87.2 % (94.0-97.0); BG PCO2 52.3 mmHg (35.0-45.0); BG PH 7.434 (7.350-7.450); BG PO2 51.9 mmHg (75.0-100.0); BG SAMPLE SITE RIGHT RADIAL; BG TOTAL HEMOGLOBIN 8.8 g/dL (12.0-18.0); BG VENT MODE VENT - P/C
[2021-08-11] VITALS (96 sets, daily range): BP systolic 78–130; BP diastolic 38–72
[2021-08-11] MEDS: METOCLOPRAMIDE HCL 10MG/2ML VIAL IV SCH ×4 (00:47→19:04)
[2021-08-11] MEDS: IPRATROPIUM/ALBUTEROL 0.5-3(2.5)MG/3ML NEB HHN SCH ×4 (01:04→20:43)
[2021-08-11] MEDS: DEXT 5%/0.45% NACL 1000ML 1,000 ML IV SCH ×3 (03:44→22:48)
[2021-08-11] MEDS: MIDAZOLAM HCL 100 MG in SODIUM CHLORIDE 0.9% 80 ML IV PRN ×3 (04:36→14:54)
[2021-08-11 07:48] LABS: BG BASE EXCESS 3.4 mmol/L (-2.0-2.0); BG CARBOXYHEMOGLOBIN 2.1 % (0.5-1.5); BG HCO3 ACT 28.4 mmol/L (22.0-26.0); BG METHEMOGLOBIN 0.4 % (0.0-1.5); BG OXYGEN SATURATION 94.9 % (92.0-98.5); BG OXYHEMOGLOBIN 92.5 % (94.0-97.0); BG PCO2 45.8 mmHg (35.0-45.0); BG PH 7.411 (7.350-7.450); BG PO2 78.3 mmHg (75.0-100.0); BG SAMPLE SITE RIGHT RADIAL; BG TOTAL HEMOGLOBIN 8.2 g/dL (12.0-18.0); BG VENT MODE VENT - P/C
[2021-08-11] MEDS: FENTANYL CITRATE/PF 2,500 MCG in SODIUM CHLORIDE 0.9% 200 ML IV PRN ×3 (08:10→22:47)
[2021-08-11] MEDS: PANTOPRAZOLE SODIUM 40 MG/VIAL IV SCH ×2 (09:19→20:59)
[2021-08-11] MEDS: LACTULOSE 20G/30ML UDC PO SCH (09:19)
[2021-08-11] MEDS: METOPROLOL TARTRATE 25MG TABLET PO SCH ×2 (09:20→20:48)
[2021-08-11] MEDS: MULTIVITAMINS,THER W-MINERALS TABLET PO SCH (09:20)
[2021-08-11] MEDS: PHENYLEPHRINE 100 MG in DEXT 5% WATER 240 ML IV PRN ×2 (09:21→22:45)
[2021-08-11] MEDS: NYSTATIN POWDER 15GM TOP SCH (21:45)
[2021-08-11] MEDS: PROPOFOL 10MG/ML 100ML 100 ML IV PRN (23:33)
[2021-08-12] VITALS (97 sets, daily range): BP systolic 69–134; BP diastolic 30–68
[2021-08-12] MEDS: METOCLOPRAMIDE HCL 10MG/2ML VIAL IV SCH ×4 (00:27→17:53)
[2021-08-12] MEDS: IPRATROPIUM/ALBUTEROL 0.5-3(2.5)MG/3ML NEB HHN SCH ×4 (00:43→20:41)
[2021-08-12] MEDS: MIDAZOLAM HCL 100 MG in SODIUM CHLORIDE 0.9% 80 ML IV PRN ×3 (01:59→14:14)
[2021-08-12 06:02] LABS: CHLORIDE 105 mEq/L (98-107)
[2021-08-12] MEDS: FENTANYL CITRATE/PF 2,500 MCG in SODIUM CHLORIDE 0.9% 200 ML IV PRN ×3 (07:02→21:30)
[2021-08-12] MEDS: PANTOPRAZOLE SODIUM 40 MG/VIAL IV SCH ×2 (08:29→20:35)
[2021-08-12] MEDS: MULTIVITAMINS,THER W-MINERALS TABLET PO SCH (08:29)
[2021-08-12] MEDS: LACTULOSE 20G/30ML UDC PO SCH (08:29)
[2021-08-12] MEDS: METOPROLOL TARTRATE 25MG TABLET PO SCH (08:30)
[2021-08-12] MEDS: PHENYLEPHRINE 100 MG in DEXT 5% WATER 240 ML IV PRN ×2 (08:31→15:06)
[2021-08-12 09:56] LABS: HEMATOCRIT. 23.6 % (36.0-48.0); HEMOGLOBIN. 7.7 g/dL (12.0-16.0); MEAN CORPUSCULAR HEMOGLOBIN 30.8 pg (28.0-32.0); MEAN CORPUSCULAR VOLUME 94.3 fL (81.0-99.0); MEAN PLATELET VOLUME 9.3 fl (7.4-10.4); PLATELET 155 x1000/uL (130-400); RED CELL DISTRIBUTION WIDTH 17.1 % (11.6-14.6)
[2021-08-12 10:15] LABS: BG BASE EXCESS 5.9 mmol/L (-2.0-2.0); BG CARBOXYHEMOGLOBIN 2.5 % (0.5-1.5); BG DEOXYHEMOGLOBIN 6.2 % (0.0-5.0); BG FRACTION INSPIRED OXYGEN 100; BG HCO3 ACT 31.9 mmol/L (22.0-26.0); BG METHEMOGLOBIN 0.3 % (0.0-1.5); BG OXYGEN SATURATION 93.6 % (92.0-98.5); BG PCO2 55.8 mmHg (35.0-45.0); BG PH 7.375 (7.350-7.450); BG PO2 69.7 mmHg (75.0-100.0); BG VENT MODE VENT - P/C
[2021-08-12] MEDS: MIDODRINE HCL 5MG TABLET PO SCH ×2 (13:28→17:53)
[2021-08-12] MEDS: NYSTATIN POWDER 15GM TOP SCH ×3 (13:31→17:53)
[2021-08-12] MEDS: PROPOFOL 10MG/ML 100ML 100 ML IV PRN ×2 (13:33→20:37)
[2021-08-12] MEDS: DEXT 5%/0.45% NACL 1000ML 1,000 ML IV SCH (14:13)
[2021-08-12 14:53] LABS: PLATELET ESTIMATE NORMAL
[2021-08-12] MEDS: NOREPINEPHRINE 8 MG in DEXT 5% WATER 242 ML IV PRN (15:05)
[2021-08-13] VITALS (98 sets, daily range): BP systolic 62–112; BP diastolic 32–68
[2021-08-13] MEDS: METOCLOPRAMIDE HCL 10MG/2ML VIAL IV SCH ×5 (00:37→23:48)
[2021-08-13] MEDS: IPRATROPIUM/ALBUTEROL 0.5-3(2.5)MG/3ML NEB HHN SCH ×3 (01:13→16:07)
[2021-08-13] MEDS: PHENYLEPHRINE 100 MG in DEXT 5% WATER 240 ML IV PRN ×4 (01:26→23:48)
[2021-08-13] MEDS: MIDAZOLAM HCL 100 MG in SODIUM CHLORIDE 0.9% 80 ML IV PRN ×3 (03:07→15:07)
[2021-08-13] MEDS: DEXT 5%/0.45% NACL 1000ML 1,000 ML IV SCH ×2 (06:43→20:04)
[2021-08-13] MEDS: FENTANYL CITRATE/PF 2,500 MCG in SODIUM CHLORIDE 0.9% 200 ML IV PRN ×3 (06:48→20:54)
[2021-08-13] MEDS: PANTOPRAZOLE SODIUM 40 MG/VIAL IV SCH ×2 (08:26→20:04)
[2021-08-13] MEDS: MIDODRINE HCL 5MG TABLET PO SCH ×3 (08:26→17:54)
[2021-08-13] MEDS: MULTIVITAMINS,THER W-MINERALS TABLET PO SCH (08:26)
[2021-08-13] MEDS: LACTULOSE 20G/30ML UDC PO SCH (08:26)
[2021-08-13] MEDS: PROPOFOL 10MG/ML 100ML 100 ML IV PRN ×2 (08:30→15:06)
[2021-08-13] MEDS: NYSTATIN POWDER 15GM TOP SCH ×3 (08:35→17:53)
[2021-08-13 09:39] LABS: BG BASE EXCESS 9.9 mmol/L (-2.0-2.0); BG CARBOXYHEMOGLOBIN 3.3 % (0.5-1.5); BG DEOXYHEMOGLOBIN 6.2 % (0.0-5.0); BG FRACTION INSPIRED OXYGEN 100; BG HCO3 ACT 37.7 mmol/L (22.0-26.0); BG METHEMOGLOBIN 0.4 % (0.0-1.5); BG OXYGEN SATURATION 93.6 % (92.0-98.5); BG OXYHEMOGLOBIN 90.1 % (94.0-97.0); BG PCO2 76.6 mmHg (35.0-45.0); BG PO2 76.5 mmHg (75.0-100.0); BG SAMPLE SITE RIGHT RADIAL; BG VENT MODE VENT - P/C
[2021-08-14] VITALS (94 sets, daily range): BP systolic 82–117; BP diastolic 36–66
[2021-08-14] MEDS: PROPOFOL 10MG/ML 100ML 100 ML IV PRN ×3 (01:45→21:23)
[2021-08-14] MEDS: IPRATROPIUM/ALBUTEROL 0.5-3(2.5)MG/3ML NEB HHN SCH ×4 (02:00→20:12)
[2021-08-14] MEDS: MIDAZOLAM HCL 100 MG in SODIUM CHLORIDE 0.9% 80 ML IV PRN ×3 (04:05→23:03)
[2021-08-14] MEDS: FENTANYL CITRATE/PF 2,500 MCG in SODIUM CHLORIDE 0.9% 200 ML IV PRN ×3 (05:14→19:04)
[2021-08-14] MEDS: PHENYLEPHRINE 100 MG in DEXT 5% WATER 240 ML IV PRN ×3 (05:15→18:15)
[2021-08-14] MEDS: METOCLOPRAMIDE HCL 10MG/2ML VIAL IV SCH ×4 (05:15→23:30)
[2021-08-14] MEDS: LACTULOSE 20G/30ML UDC PO SCH (08:32)
[2021-08-14] MEDS: PANTOPRAZOLE SODIUM 40 MG/VIAL IV SCH ×2 (08:32→21:30)
[2021-08-14] MEDS: MULTIVITAMINS,THER W-MINERALS TABLET PO SCH (08:32)
[2021-08-14] MEDS: MIDODRINE HCL 5MG TABLET PO SCH ×3 (08:33→16:30)
[2021-08-14] MEDS: NYSTATIN POWDER 15GM TOP SCH ×3 (08:34→16:30)
[2021-08-14 09:31] LABS: BG BASE EXCESS 2.6 mmol/L (-2.0-2.0); BG CARBOXYHEMOGLOBIN 2.6 % (0.5-1.5); BG DEOXYHEMOGLOBIN 1.3 % (0.0-5.0); BG FRACTION INSPIRED OXYGEN 100; BG HCO3 ACT 29.9 mmol/L (22.0-26.0); BG METHEMOGLOBIN 0.4 % (0.0-1.5); BG OXYGEN SATURATION 98.7 % (92.0-98.5); BG OXYHEMOGLOBIN 95.7 % (94.0-97.0); BG PCO2 63.3 mmHg (35.0-45.0); BG PH 7.292 (7.350-7.450); BG PO2 144.2 mmHg (75.0-100.0); BG SAMPLE SITE RIGHT RADIAL; BG TOTAL HEMOGLOBIN 8.2 g/dL (12.0-18.0); BG TOTAL RESPIRATORY RATE 42 b/min; BG VENT MODE VENT - P/C
[2021-08-14] MEDS: NOREPINEPHRINE 8 MG in DEXT 5% WATER 242 ML IV PRN (09:31)
[2021-08-14 10:17] LABS: HEMATOCRIT. 22.3 % (36.0-48.0); HEMOGLOBIN. 7.2 g/dL (12.0-16.0); MEAN CORPUSCULAR HEMOGLOBIN 30.4 pg (28.0-32.0); MEAN CORPUSCULAR VOLUME 93.9 fL (81.0-99.0); MEAN PLATELET VOLUME 9.3 fl (7.4-10.4); PLATELET 151 x1000/uL (130-400); RED BLOOD CELL COUNT 2.38 mill/uL (4.2-5.4); RED CELL DISTRIBUTION WIDTH 17.7 % (11.6-14.6)
[2021-08-14] MEDS: DEXT 5%/0.45% NACL 1000ML 1,000 ML IV SCH (11:57)
[2021-08-14 13:07] LABS: CHLORIDE 99 mEq/L (98-107)
[2021-08-14 13:35] LABS: NUCLEATED RED BLOOD CELLS 3 /100 WBC; PLATELET ESTIMATE NORMAL
[2021-08-14] MEDS: PIPERACILLIN/TAZOBACTAM 3.375 G in DEXTROSE 5% WATER 50 ML IV SCH (18:25)
[2021-08-15] VITALS (96 sets, daily range): BP systolic 82–133; BP diastolic 40–71
[2021-08-15] MEDS: IPRATROPIUM/ALBUTEROL 0.5-3(2.5)MG/3ML NEB HHN SCH ×4 (01:08→21:01)
[2021-08-15] MEDS: PHENYLEPHRINE 100 MG in DEXT 5% WATER 240 ML IV PRN ×4 (01:14→22:30)
[2021-08-15] MEDS: FENTANYL CITRATE/PF 2,500 MCG in SODIUM CHLORIDE 0.9% 200 ML IV PRN ×3 (03:15→18:05)
[2021-08-15] MEDS: PROPOFOL 10MG/ML 100ML 100 ML IV PRN (05:18)
[2021-08-15] MEDS: NOREPINEPHRINE 8 MG in DEXT 5% WATER 242 ML IV PRN (05:41)
[2021-08-15] MEDS: METOCLOPRAMIDE HCL 10MG/2ML VIAL IV SCH ×4 (05:45→23:33)
[2021-08-15] MEDS: PIPERACILLIN/TAZOBACTAM 3.375 G in DEXTROSE 5% WATER 50 ML IV SCH ×3 (05:54→21:48)
[2021-08-15] MEDS: PANTOPRAZOLE SODIUM 40 MG/VIAL IV SCH ×2 (09:13→21:19)
[2021-08-15] MEDS: MULTIVITAMINS,THER W-MINERALS TABLET PO SCH (09:13)
[2021-08-15] MEDS: MIDODRINE HCL 5MG TABLET PO SCH ×3 (09:13→18:12)
[2021-08-15] MEDS: LACTULOSE 20G/30ML UDC PO SCH (09:13)
[2021-08-15] MEDS: NYSTATIN POWDER 15GM TOP SCH (09:14)
[2021-08-15] MEDS: DEXT 5%/0.45% NACL 1000ML 1,000 ML IV SCH ×2 (09:15→13:57)
[2021-08-15] MEDS: MIDAZOLAM HCL 100 MG in SODIUM CHLORIDE 0.9% 80 ML IV PRN ×2 (09:45→18:05)
[2021-08-15 10:20] LABS: CHLORIDE 100 mEq/L (98-107)
[2021-08-15 12:44] LABS: HEMATOCRIT. 22.6 % (36.0-48.0); HEMOGLOBIN. 7.3 g/dL (12.0-16.0); MEAN CORPUSCULAR HEMOGLOBIN 30.7 pg (28.0-32.0); MEAN CORPUSCULAR VOLUME 95.6 fL (81.0-99.0); MEAN PLATELET VOLUME 10.1 fl (7.4-10.4); PLATELET 154 x1000/uL (130-400); RED BLOOD CELL COUNT 2.37 mill/uL (4.2-5.4); RED CELL DISTRIBUTION WIDTH 18.4 % (11.6-14.6)
[2021-08-15 13:46] LABS: NUCLEATED RED BLOOD CELLS 7 /100 WBC; PLATELET ESTIMATE NORMAL
[2021-08-15] MEDS: NYSTATIN 100,000 UNITS/GM CREAM 15GM TOP SCH ×2 (13:56→21:19)
[2021-08-16] VITALS (92 sets, daily range): BP systolic 91–134; BP diastolic 27–77
[2021-08-16] MEDS: FENTANYL CITRATE/PF 2,500 MCG in SODIUM CHLORIDE 0.9% 200 ML IV PRN ×3 (01:47→20:39)
[2021-08-16] MEDS: IPRATROPIUM/ALBUTEROL 0.5-3(2.5)MG/3ML NEB HHN SCH ×4 (01:51→21:05)
[2021-08-16] MEDS: NOREPINEPHRINE 8 MG in DEXT 5% WATER 242 ML IV PRN ×2 (02:14→22:27)
[2021-08-16] MEDS: DEXT 5%/0.45% NACL 1000ML 1,000 ML IV SCH ×2 (04:05→17:25)
[2021-08-16 05:27] LABS: HEMATOCRIT. 26.5 % (36.0-48.0); HEMOGLOBIN. 8.3 g/dL (12.0-16.0); MEAN CORPUSCULAR HEMOGLOBIN 31.3 pg (28.0-32.0); MEAN CORPUSCULAR VOLUME 99.5 fL (81.0-99.0); MEAN PLATELET VOLUME 9.8 fl (7.4-10.4); PLATELET 147 x1000/uL (130-400); RED BLOOD CELL COUNT 2.66 mill/uL (4.2-5.4); RED CELL DISTRIBUTION WIDTH 18.4 % (11.6-14.6)
[2021-08-16 05:38] LABS: CHLORIDE 99 mEq/L (98-107)
[2021-08-16] MEDS: PHENYLEPHRINE 100 MG in DEXT 5% WATER 240 ML IV PRN ×4 (05:50→23:52)
[2021-08-16] MEDS: METOCLOPRAMIDE HCL 10MG/2ML VIAL IV SCH ×4 (05:50→23:46)
[2021-08-16] MEDS: PIPERACILLIN/TAZOBACTAM 3.375 G in DEXTROSE 5% WATER 50 ML IV SCH ×3 (06:12→22:25)
[2021-08-16] MEDS: MIDAZOLAM HCL 100 MG in SODIUM CHLORIDE 0.9% 80 ML IV PRN (07:00)
[2021-08-16] MEDS: MULTIVITAMINS,THER W-MINERALS TABLET PO SCH (09:04)
[2021-08-16] MEDS: LACTULOSE 20G/30ML UDC PO SCH (09:04)
[2021-08-16] MEDS: MIDODRINE HCL 5MG TABLET PO SCH ×3 (09:04→18:02)
[2021-08-16] MEDS: PANTOPRAZOLE SODIUM 40 MG/VIAL IV SCH ×2 (09:04→20:37)
[2021-08-16] MEDS: NYSTATIN 100,000 UNITS/GM CREAM 15GM TOP SCH ×2 (09:05→20:37)
[2021-08-16 10:28] LABS: BG BASE EXCESS 1.4 mmol/L (-2.0-2.0); BG CARBOXYHEMOGLOBIN 2.5 % (0.5-1.5); BG DEOXYHEMOGLOBIN 20.1 % (0.0-5.0); BG FRACTION INSPIRED OXYGEN 85; BG HCO3 ACT 28.4 mmol/L (22.0-26.0); BG METHEMOGLOBIN 0.1 % (0.0-1.5); BG OXYGEN SATURATION 79.4 % (92.0-98.5); BG OXYHEMOGLOBIN 77.3 % (94.0-97.0); BG PCO2 58.3 mmHg (35.0-45.0); BG PH 7.306 (7.350-7.450); BG PO2 44.6 mmHg (75.0-100.0); BG SAMPLE SITE RIGHT RADIAL; BG TOTAL HEMOGLOBIN 9.6 g/dL (12.0-18.0); BG VENT MODE VENT - P/C
[2021-08-16] MEDS ORDERED: ASCORBIC ACID 500MG/5ML 120ML PO SCH (11:45)
[2021-08-16] MEDS: ASCORBIC ACID 500 MG TABLET PO SCH (12:24)
[2021-08-16] MEDS: ZINC SULFATE 220 MG ( 50 ) CAPSULE PO SCH (12:24)
[2021-08-16 13:01] LABS: CHLORIDE 98 mEq/L (98-107)
[2021-08-16 15:26] LABS: NUCLEATED RED BLOOD CELLS 34 /100 WBC
[2021-08-16 15:27] LABS: PLATELET ESTIMATE NORMAL
[2021-08-17] VITALS (100 sets, daily range): BP systolic 88–147; BP diastolic 45–92
[2021-08-17] MEDS: IPRATROPIUM/ALBUTEROL 0.5-3(2.5)MG/3ML NEB HHN SCH ×4 (00:45→20:30)
[2021-08-17] MEDS: DEXT 5%/0.45% NACL 1000ML 1,000 ML IV SCH ×2 (00:47→20:07)
[2021-08-17] MEDS: PIPERACILLIN/TAZOBACTAM 3.375 G in DEXTROSE 5% WATER 50 ML IV SCH ×3 (05:36→21:08)
[2021-08-17] MEDS: METOCLOPRAMIDE HCL 10MG/2ML VIAL IV SCH ×4 (05:36→23:17)
[2021-08-17 06:01] LABS: HEMATOCRIT. 21.6 % (36.0-48.0); MEAN CORPUSCULAR HEMOGLOBIN 30.7 pg (28.0-32.0); MEAN PLATELET VOLUME 9.6 fl (7.4-10.4); PLATELET 133 x1000/uL (130-400); RED BLOOD CELL COUNT 2.24 mill/uL (4.2-5.4); RED CELL DISTRIBUTION WIDTH 18.8 % (11.6-14.6)
[2021-08-17 06:04] LABS: HEMOGLOBIN. 6.9 g/dL (12.0-16.0)
[2021-08-17 06:07] LABS: CHLORIDE 97 mEq/L (98-107)
[2021-08-17] MEDS: PHENYLEPHRINE 100 MG in DEXT 5% WATER 240 ML IV PRN ×3 (06:15→23:19)
[2021-08-17] MEDS: FENTANYL CITRATE/PF 2,500 MCG in SODIUM CHLORIDE 0.9% 200 ML IV PRN ×2 (06:16→17:23)
[2021-08-17 08:41] LABS: BG BASE EXCESS 3.5 mmol/L (-2.0-2.0); BG CARBOXYHEMOGLOBIN 2.5 % (0.5-1.5); BG DEOXYHEMOGLOBIN 30.8 % (0.0-5.0); BG HCO3 ACT 29.8 mmol/L (22.0-26.0); BG METHEMOGLOBIN 0.3 % (0.0-1.5); BG OXYGEN SATURATION 68.3 % (92.0-98.5); BG OXYHEMOGLOBIN 66.4 % (94.0-97.0); BG PCO2 55.9 mmHg (35.0-45.0); BG PH 7.344 (7.350-7.450); BG PO2 33.3 mmHg (75.0-100.0); BG SAMPLE SITE RIGHT RADIAL; BG TOTAL HEMOGLOBIN 7.4 g/dL (12.0-18.0); BG VENT MODE VENT - P/C
[2021-08-17] MEDS: LACTULOSE 20G/30ML UDC PO SCH (08:46)
[2021-08-17] MEDS: PANTOPRAZOLE SODIUM 40 MG/VIAL IV SCH ×2 (08:46→21:08)
[2021-08-17] MEDS: ZINC SULFATE 220 MG ( 50 ) CAPSULE PO SCH (08:46)
[2021-08-17] MEDS: MIDODRINE HCL 5MG TABLET PO SCH ×3 (08:46→17:23)
[2021-08-17] MEDS: ASCORBIC ACID 500 MG TABLET PO SCH (08:46)
[2021-08-17] MEDS: MULTIVITAMINS,THER W-MINERALS TABLET PO SCH (08:46)
[2021-08-17] MEDS: NYSTATIN 100,000 UNITS/GM CREAM 15GM TOP SCH ×2 (08:47→21:08)
[2021-08-17 10:23] LABS: NUCLEATED RED BLOOD CELLS 56 /100 WBC; PLATELET ESTIMATE NORMAL
[2021-08-18] VITALS (94 sets, daily range): BP systolic 92–126; BP diastolic 46–65
[2021-08-18] MEDS: FENTANYL CITRATE/PF 2,500 MCG in SODIUM CHLORIDE 0.9% 200 ML IV PRN ×3 (00:41→16:23)
[2021-08-18] MEDS: IPRATROPIUM/ALBUTEROL 0.5-3(2.5)MG/3ML NEB HHN SCH ×4 (03:04→21:17)
[2021-08-18] MEDS: METOCLOPRAMIDE HCL 10MG/2ML VIAL IV SCH ×3 (05:32→17:27)
[2021-08-18] MEDS: PIPERACILLIN/TAZOBACTAM 3.375 G in DEXTROSE 5% WATER 50 ML IV SCH ×3 (05:32→21:46)
[2021-08-18] MEDS: LACTULOSE 20G/30ML UDC PO SCH (08:12)
[2021-08-18] MEDS: ASCORBIC ACID 500 MG TABLET PO SCH (08:12)
[2021-08-18] MEDS: MIDODRINE HCL 5MG TABLET PO SCH ×3 (08:12→17:26)
[2021-08-18] MEDS: MULTIVITAMINS,THER W-MINERALS TABLET PO SCH (08:12)
[2021-08-18] MEDS: PANTOPRAZOLE SODIUM 40 MG/VIAL IV SCH ×2 (08:12→21:14)
[2021-08-18] MEDS: ZINC SULFATE 220 MG ( 50 ) CAPSULE PO SCH (08:12)
[2021-08-18] MEDS: NYSTATIN 100,000 UNITS/GM CREAM 15GM TOP SCH ×2 (08:13→21:16)
[2021-08-18] MEDS: PHENYLEPHRINE 100 MG in DEXT 5% WATER 240 ML IV PRN ×2 (09:10→19:08)
[2021-08-18 09:43] LABS: HEMATOCRIT. 26.5 % (36.0-48.0); HEMOGLOBIN. 8.6 g/dL (12.0-16.0); MEAN CORPUSCULAR HEMOGLOBIN 30.6 pg (28.0-32.0); MEAN CORPUSCULAR VOLUME 94.6 fL (81.0-99.0); MEAN PLATELET VOLUME 10.2 fl (7.4-10.4); PLATELET 141 x1000/uL (130-400); RED CELL DISTRIBUTION WIDTH 18.1 % (11.6-14.6)
[2021-08-18 09:48] LABS: CHLORIDE 96 mEq/L (98-107)
[2021-08-18 10:00] LABS: BG BASE EXCESS -0.2 mmol/L (-2.0-2.0); BG CARBOXYHEMOGLOBIN 2.6 % (0.5-1.5); BG FRACTION INSPIRED OXYGEN 100; BG HCO3 ACT 26.9 mmol/L (22.0-26.0); BG METHEMOGLOBIN 0.1 % (0.0-1.5); BG OXYGEN SATURATION 95.9 % (92.0-98.5); BG OXYHEMOGLOBIN 93.3 % (94.0-97.0); BG PCO2 56.6 mmHg (35.0-45.0); BG PH 7.295 (7.350-7.450); BG PO2 84.5 mmHg (75.0-100.0); BG SAMPLE SITE RIGHT RADIAL; BG TOTAL HEMOGLOBIN 10.6 g/dL (12.0-18.0); BG VENT MODE VENT - P/C
[2021-08-18 10:25] LABS: NUCLEATED RED BLOOD CELLS 42 /100 WBC
[2021-08-18 10:26] LABS: PLATELET ESTIMATE NORMAL
[2021-08-18] MEDS: DEXT 5%/0.45% NACL 1000ML 1,000 ML IV SCH (12:25)
[2021-08-18] MEDS ORDERED: SODIUM POLYSTYRENE SULFONATE 15 G/60 ML BOT PO SCH (13:00)
[2021-08-19] VITALS (97 sets, daily range): BP systolic 94–158; BP diastolic 51–83
[2021-08-19] MEDS: METOCLOPRAMIDE HCL 10MG/2ML VIAL IV SCH ×4 (00:46→17:19)
[2021-08-19] MEDS: FENTANYL CITRATE/PF 2,500 MCG in SODIUM CHLORIDE 0.9% 200 ML IV PRN ×3 (00:55→18:16)
[2021-08-19] MEDS: IPRATROPIUM/ALBUTEROL 0.5-3(2.5)MG/3ML NEB HHN SCH ×3 (01:01→20:40)
[2021-08-19] MEDS: DEXT 5%/0.45% NACL 1000ML 1,000 ML IV SCH ×2 (02:00→21:15)
[2021-08-19] MEDS: PIPERACILLIN/TAZOBACTAM 3.375 G in DEXTROSE 5% WATER 50 ML IV SCH ×3 (05:47→21:40)
[2021-08-19 08:42] LABS: BG BASE EXCESS 3.2 mmol/L (-2.0-2.0); BG CARBOXYHEMOGLOBIN 2.2 % (0.5-1.5); BG DEOXYHEMOGLOBIN 5.5 % (0.0-5.0); BG HCO3 ACT 28.7 mmol/L (22.0-26.0); BG METHEMOGLOBIN 0.3 % (0.0-1.5); BG OXYGEN SATURATION 94.4 % (92.0-98.5); BG PCO2 47.9 mmHg (35.0-45.0); BG PH 7.395 (7.350-7.450); BG PO2 67.4 mmHg (75.0-100.0); BG SAMPLE SITE RIGHT RADIAL; BG TOTAL HEMOGLOBIN 10.2 g/dL (12.0-18.0); BG VENT MODE VENT - P/C
[2021-08-19] MEDS: ASCORBIC ACID 500 MG TABLET PO SCH (09:20)
[2021-08-19] MEDS: PANTOPRAZOLE SODIUM 40 MG/VIAL IV SCH ×2 (09:20→21:25)
[2021-08-19] MEDS: LACTULOSE 20G/30ML UDC PO SCH (09:20)
[2021-08-19] MEDS: MULTIVITAMINS,THER W-MINERALS TABLET PO SCH (09:20)
[2021-08-19] MEDS: ZINC SULFATE 220 MG ( 50 ) CAPSULE PO SCH (09:20)
[2021-08-19] MEDS: MIDODRINE HCL 5MG TABLET PO SCH ×3 (09:20→17:19)
[2021-08-19] MEDS: NYSTATIN 100,000 UNITS/GM CREAM 15GM TOP SCH ×2 (09:21→21:25)
[2021-08-19] MEDS ORDERED: DILTIAZEM HCL 5MG/ML 5ML VIAL IV SCH (12:15)
[2021-08-19] MEDS ORDERED: ADENOSINE 3 MG/ML 2ML VIAL IV SCH ×2 (13:45)
[2021-08-19] MEDS ORDERED: AMIODARONE HCL 900 MG in DEXT 5% WATER 482 ML IV SCH (14:15)
[2021-08-19] MEDS ORDERED: AMIODARONE HCL 150 MG in DEXT 5% WATER 100 ML IV NR (15:30)
[2021-08-20] VITALS (98 sets, daily range): BP systolic 103–169; BP diastolic 54–94
[2021-08-20] MEDS: METOCLOPRAMIDE HCL 10MG/2ML VIAL IV SCH ×5 (00:05→23:59)
[2021-08-20] MEDS: IPRATROPIUM/ALBUTEROL 0.5-3(2.5)MG/3ML NEB HHN SCH ×4 (01:02→20:50)
[2021-08-20] MEDS: FENTANYL CITRATE/PF 2,500 MCG in SODIUM CHLORIDE 0.9% 200 ML IV PRN ×3 (01:33→17:08)
[2021-08-20] MEDS: PANTOPRAZOLE SODIUM 40 MG/VIAL IV SCH ×2 (08:04→20:55)
[2021-08-20] MEDS: LACTULOSE 20G/30ML UDC PO SCH (08:04)
[2021-08-20] MEDS: MULTIVITAMINS,THER W-MINERALS TABLET PO SCH (08:04)
[2021-08-20] MEDS: ZINC SULFATE 220 MG ( 50 ) CAPSULE PO SCH (08:04)
[2021-08-20] MEDS: ASCORBIC ACID 500 MG TABLET PO SCH (08:04)
[2021-08-20] MEDS: MIDODRINE HCL 5MG TABLET PO SCH ×3 (08:05→17:00)
[2021-08-20] MEDS: NYSTATIN 100,000 UNITS/GM CREAM 15GM TOP SCH ×2 (08:05→20:55)
[2021-08-20 08:19] LABS: BG CARBOXYHEMOGLOBIN 2.2 % (0.5-1.5); BG DEOXYHEMOGLOBIN 9.2 % (0.0-5.0); BG HCO3 ACT 29.7 mmol/L (22.0-26.0); BG METHEMOGLOBIN 0.2 % (0.0-1.5); BG OXYGEN SATURATION 90.6 % (92.0-98.5); BG OXYHEMOGLOBIN 88.4 % (94.0-97.0); BG PH 7.438 (7.350-7.450); BG PO2 55.4 mmHg (75.0-100.0); BG SAMPLE SITE RIGHT RADIAL; BG TOTAL HEMOGLOBIN 9.7 g/dL (12.0-18.0); BG VENT MODE VENT - P/C
[2021-08-20] MEDS: DEXT 5%/0.45% NACL 1000ML 1,000 ML IV SCH (12:30)
[2021-08-20] MEDS: MIDAZOLAM HCL 100 MG in SODIUM CHLORIDE 0.9% 80 ML IV PRN (20:38)
[2021-08-21] VITALS (94 sets, daily range): BP systolic 88–129; BP diastolic 45–68
[2021-08-21] MEDS: FENTANYL CITRATE/PF 2,500 MCG in SODIUM CHLORIDE 0.9% 200 ML IV PRN ×3 (00:39→18:08)
[2021-08-21] MEDS: PHENYLEPHRINE 100 MG in DEXT 5% WATER 240 ML IV PRN ×2 (01:02→19:19)
[2021-08-21] MEDS: IPRATROPIUM/ALBUTEROL 0.5-3(2.5)MG/3ML NEB HHN SCH (01:48)
[2021-08-21] MEDS: DEXT 5%/0.45% NACL 1000ML 1,000 ML IV SCH ×2 (02:34→18:10)
[2021-08-21] MEDS: MIDAZOLAM HCL 100 MG in SODIUM CHLORIDE 0.9% 80 ML IV PRN ×2 (02:35→13:23)
[2021-08-21 05:35] LABS: HEMATOCRIT. 26.6 % (36.0-48.0); HEMOGLOBIN. 8.5 g/dL (12.0-16.0); MEAN CORPUSCULAR HEMOGLOBIN 31.5 pg (28.0-32.0); MEAN PLATELET VOLUME 10.3 fl (7.4-10.4); PLATELET 147 x1000/uL (130-400); RED BLOOD CELL COUNT 2.71 mill/uL (4.2-5.4); RED CELL DISTRIBUTION WIDTH 22.6 % (11.6-14.6)
[2021-08-21 05:41] LABS: CHLORIDE 99 mEq/L (98-107)
[2021-08-21] MEDS: METOCLOPRAMIDE HCL 10MG/2ML VIAL IV SCH ×3 (05:45→18:10)
[2021-08-21 09:13] LABS: BG BASE EXCESS 8.5 mmol/L (-2.0-2.0); BG CARBOXYHEMOGLOBIN 2.8 % (0.5-1.5); BG DEOXYHEMOGLOBIN 3.3 % (0.0-5.0); BG FRACTION INSPIRED OXYGEN 100; BG HCO3 ACT 35.1 mmol/L (22.0-26.0); BG METHEMOGLOBIN 0.2 % (0.0-1.5); BG OXYGEN SATURATION 96.6 % (92.0-98.5); BG OXYHEMOGLOBIN 93.7 % (94.0-97.0); BG PCO2 61.6 mmHg (35.0-45.0); BG PH 7.374 (7.350-7.450); BG PO2 94.1 mmHg (75.0-100.0); BG TOTAL HEMOGLOBIN 9.3 g/dL (12.0-18.0); BG VENT MODE VENT - P/C
[2021-08-21 09:54] LABS: NUCLEATED RED BLOOD CELLS 12 /100 WBC; PLATELET ESTIMATE NORMAL
[2021-08-21] MEDS ORDERED: LIDOCAINE HCL/EPINEPHRINE 1%-EPI 1:100,000 20 ML VIAL ONE (10:13)
[2021-08-21 10:58] LABS: INR 1.1; PROTHROMBIN TIME 11.8 sec (9.6-11.0)
[2021-08-21] MEDS ORDERED: VECURONIUM BROMIDE 10 MG/VIAL IV ONE (11:38)
[2021-08-21] MEDS: IPRATROPIUM BROMIDE (0.02%) 0.5MG/2.5ML NEB HHN SCH ×2 (12:52→20:41)
[2021-08-21] MEDS: ASCORBIC ACID 500 MG TABLET PO SCH (13:51)
[2021-08-21] MEDS: PANTOPRAZOLE SODIUM 40 MG/VIAL IV SCH ×2 (13:51→21:15)
[2021-08-21] MEDS: LACTULOSE 20G/30ML UDC PO SCH (13:51)
[2021-08-21] MEDS: ZINC SULFATE 220 MG ( 50 ) CAPSULE PO SCH (13:51)
[2021-08-21] MEDS: MULTIVITAMINS,THER W-MINERALS TABLET PO SCH (13:51)
[2021-08-21] MEDS: MIDODRINE HCL 5MG TABLET PO SCH ×3 (13:53→18:10)
[2021-08-21] MEDS: NYSTATIN 100,000 UNITS/GM CREAM 15GM TOP SCH (14:45)
[2021-08-22] VITALS (105 sets, daily range): BP systolic 85–130; BP diastolic 37–75
[2021-08-22] MEDS: METOCLOPRAMIDE HCL 10MG/2ML VIAL IV SCH ×4 (00:29→18:18)
[2021-08-22] MEDS: IPRATROPIUM BROMIDE (0.02%) 0.5MG/2.5ML NEB HHN SCH ×5 (00:59→19:55)
[2021-08-22] MEDS: MIDAZOLAM HCL 100 MG in SODIUM CHLORIDE 0.9% 80 ML IV PRN ×2 (01:14→23:31)
[2021-08-22] MEDS: PHENYLEPHRINE 100 MG in DEXT 5% WATER 240 ML IV PRN ×2 (01:16→13:22)
[2021-08-22] MEDS: FENTANYL CITRATE/PF 2,500 MCG in SODIUM CHLORIDE 0.9% 200 ML IV PRN ×2 (01:17→16:43)
[2021-08-22] MEDS: DEXT 5%/0.45% NACL 1000ML 1,000 ML IV SCH ×3 (05:42→21:44)
[2021-08-22 06:05] LABS: CHLORIDE 99 mEq/L (98-107)
[2021-08-22 06:08] LABS: HEMATOCRIT. 26.7 % (36.0-48.0); HEMOGLOBIN. 8.5 g/dL (12.0-16.0); MEAN CORPUSCULAR HEMOGLOBIN 32.1 pg (28.0-32.0); MEAN PLATELET VOLUME 10.3 fl (7.4-10.4); PLATELET 151 x1000/uL (130-400); RED BLOOD CELL COUNT 2.65 mill/uL (4.2-5.4); RED CELL DISTRIBUTION WIDTH 24.6 % (11.6-14.6)
[2021-08-22 08:30] LABS: BG BASE EXCESS 2.6 mmol/L (-2.0-2.0); BG CARBOXYHEMOGLOBIN 3.2 % (0.5-1.5); BG DEOXYHEMOGLOBIN 14.6 % (0.0-5.0); BG HCO3 ACT 30.7 mmol/L (22.0-26.0); BG METHEMOGLOBIN 0.4 % (0.0-1.5); BG OXYGEN SATURATION 84.9 % (92.0-98.5); BG OXYHEMOGLOBIN 81.8 % (94.0-97.0); BG PH 7.266 (7.350-7.450); BG PO2 50.4 mmHg (75.0-100.0); BG SAMPLE SITE RIGHT RADIAL; BG TOTAL HEMOGLOBIN 9.9 g/dL (12.0-18.0); BG VENT MODE VENT - P/C
[2021-08-22] MEDS: PANTOPRAZOLE SODIUM 40 MG/VIAL IV SCH ×2 (08:40→21:44)
[2021-08-22] MEDS: ASCORBIC ACID 500 MG TABLET PO SCH (08:40)
[2021-08-22] MEDS: LACTULOSE 20G/30ML UDC PO SCH (08:40)
[2021-08-22] MEDS: ZINC SULFATE 220 MG ( 50 ) CAPSULE PO SCH (08:40)
[2021-08-22] MEDS: MIDODRINE HCL 5MG TABLET PO SCH ×3 (08:40→16:41)
[2021-08-22] MEDS: MULTIVITAMINS,THER W-MINERALS TABLET PO SCH (08:41)
[2021-08-22] MEDS: NYSTATIN 100,000 UNITS/GM CREAM 15GM TOP SCH ×2 (09:08→21:45)
[2021-08-22 09:16] LABS: NUCLEATED RED BLOOD CELLS 1 /100 WBC
[2021-08-22 09:17] LABS: PLATELET ESTIMATE NORMAL
[2021-08-23] VITALS (93 sets, daily range): BP systolic 86–130; BP diastolic 29–79
[2021-08-23] MEDS: FENTANYL CITRATE/PF 2,500 MCG in SODIUM CHLORIDE 0.9% 200 ML IV PRN ×2 (00:29→18:03)
[2021-08-23] MEDS: IPRATROPIUM BROMIDE (0.02%) 0.5MG/2.5ML NEB HHN SCH ×3 (02:03→21:09)
[2021-08-23 05:17] LABS: HEMATOCRIT. 29.1 % (36.0-48.0); HEMOGLOBIN. 9.2 g/dL (12.0-16.0); MEAN CORPUSCULAR HEMOGLOBIN 31.8 pg (28.0-32.0); MEAN CORPUSCULAR VOLUME 101.2 fL (81.0-99.0); MEAN PLATELET VOLUME 10.3 fl (7.4-10.4); RED BLOOD CELL COUNT 2.88 mill/uL (4.2-5.4); RED CELL DISTRIBUTION WIDTH 25.3 % (11.6-14.6)
[2021-08-23 05:22] LABS: CHLORIDE 99 mEq/L (98-107)
[2021-08-23] MEDS: PHENYLEPHRINE 100 MG in DEXT 5% WATER 240 ML IV PRN ×2 (06:49→17:00)
[2021-08-23 08:17] LABS: BG BASE EXCESS 2.3 mmol/L (-2.0-2.0); BG CARBOXYHEMOGLOBIN 3.2 % (0.5-1.5); BG DEOXYHEMOGLOBIN 6.1 % (0.0-5.0); BG HCO3 ACT 29.6 mmol/L (22.0-26.0); BG METHEMOGLOBIN 0.4 % (0.0-1.5); BG OXYGEN SATURATION 93.7 % (92.0-98.5); BG OXYHEMOGLOBIN 90.3 % (94.0-97.0); BG PCO2 61.5 mmHg (35.0-45.0); BG PH 7.301 (7.350-7.450); BG PO2 67.3 mmHg (75.0-100.0); BG SAMPLE SITE RIGHT RADIAL; BG TOTAL HEMOGLOBIN 10.1 g/dL (12.0-18.0); BG VENT MODE VENT - P/C
[2021-08-23] MEDS: LACTULOSE 20G/30ML UDC PO SCH (08:38)
[2021-08-23] MEDS: MIDODRINE HCL 5MG TABLET PO SCH ×3 (08:39→17:01)
[2021-08-23] MEDS: NYSTATIN 100,000 UNITS/GM CREAM 15GM TOP SCH ×2 (08:39→20:41)
[2021-08-23] MEDS: MULTIVITAMINS,THER W-MINERALS TABLET PO SCH (08:39)
[2021-08-23] MEDS: ZINC SULFATE 220 MG ( 50 ) CAPSULE PO SCH (08:39)
[2021-08-23] MEDS: ASCORBIC ACID 500 MG TABLET PO SCH (08:39)
[2021-08-23] MEDS: MIDAZOLAM HCL 100 MG in SODIUM CHLORIDE 0.9% 80 ML IV PRN ×2 (08:40→21:15)
[2021-08-23] MEDS: PANTOPRAZOLE SODIUM 40 MG/VIAL IV SCH (08:42)
[2021-08-23] MEDS: METHYLPREDNISOLONE SOD SUCC 40 MG/ML VIAL IV SCH ×2 (09:43→17:05)
[2021-08-23 11:34] LABS: NUCLEATED RED BLOOD CELLS 1 /100 WBC; PLATELET ESTIMATE NORMAL
[2021-08-23 11:36] LABS: PLATELET 174 x1000/uL (130-400)
[2021-08-23] MEDS: POLYVINYL ALCOHOL OPHTH DROPS 15ML BOTHEYE SCH ×2 (14:20→17:05)
[2021-08-23] MEDS: DEXT 5%/0.45% NACL 1000ML 1,000 ML IV SCH (21:15)
[2021-08-24] VITALS (94 sets, daily range): BP systolic 93–149; BP diastolic 51–85
[2021-08-24] MEDS: IPRATROPIUM BROMIDE (0.02%) 0.5MG/2.5ML NEB HHN SCH ×4 (01:01→21:27)
[2021-08-24] MEDS: METHYLPREDNISOLONE SOD SUCC 40 MG/ML VIAL IV SCH ×3 (01:56→17:56)
[2021-08-24] MEDS: NYSTATIN 100,000 UNITS/GM CREAM 15GM TOP SCH ×2 (02:03→21:30)
[2021-08-24] MEDS: POLYVINYL ALCOHOL OPHTH DROPS 15ML BOTHEYE SCH ×5 (02:03→21:30)
[2021-08-24] MEDS: FENTANYL CITRATE/PF 2,500 MCG in SODIUM CHLORIDE 0.9% 200 ML IV PRN ×3 (02:29→17:56)
[2021-08-24 06:09] LABS: CHLORIDE 102 mEq/L (98-107)
[2021-08-24 06:22] LABS: BASOPHILS % 0.8 % (0.0-2.0); HEMOGLOBIN. 9.5 g/dL (12.0-16.0); MEAN CORPUSCULAR HEMOGLOBIN 31.4 pg (28.0-32.0); MEAN CORPUSCULAR VOLUME 99.6 fL (81.0-99.0); MEAN PLATELET VOLUME 10.3 fl (7.4-10.4); MONOCYTES % 2.9 % (2.0-8.0); NEUTROPHILS % 84.3 % (40.0-76.0); PLATELET 177 x1000/uL (130-400); RED BLOOD CELL COUNT 3.01 mill/uL (4.2-5.4); RED CELL DISTRIBUTION WIDTH 25.5 % (11.6-14.6)
[2021-08-24 08:43] LABS: BG BASE EXCESS 6.1 mmol/L (-2.0-2.0); BG CARBOXYHEMOGLOBIN 2.8 % (0.5-1.5); BG DEOXYHEMOGLOBIN 9.2 % (0.0-5.0); BG FRACTION INSPIRED OXYGEN 100; BG HCO3 ACT 32.2 mmol/L (22.0-26.0); BG METHEMOGLOBIN 0.1 % (0.0-1.5); BG OXYGEN SATURATION 90.5 % (92.0-98.5); BG OXYHEMOGLOBIN 87.9 % (94.0-97.0); BG PCO2 54.6 mmHg (35.0-45.0); BG PH 7.389 (7.350-7.450); BG PO2 55.6 mmHg (75.0-100.0); BG SAMPLE SITE RIGHT RADIAL; BG TOTAL HEMOGLOBIN 10.7 g/dL (12.0-18.0); BG TOTAL RESPIRATORY RATE 49 b/min; BG VENT MODE VENT - P/C
[2021-08-24] MEDS: DEXT 5%/0.45% NACL 1000ML 1,000 ML IV SCH ×2 (08:52→21:30)
[2021-08-24] MEDS: MULTIVITAMINS,THER W-MINERALS TABLET PO SCH (08:55)
[2021-08-24] MEDS: MIDODRINE HCL 5MG TABLET PO SCH ×3 (08:55→16:55)
[2021-08-24] MEDS: ZINC SULFATE 220 MG ( 50 ) CAPSULE PO SCH (08:55)
[2021-08-24] MEDS: PANTOPRAZOLE SODIUM 40 MG/VIAL IV SCH (08:55)
[2021-08-24] MEDS: ASCORBIC ACID 500 MG TABLET PO SCH (08:55)
[2021-08-24] MEDS: PHENYLEPHRINE 100 MG in DEXT 5% WATER 240 ML IV PRN (08:57)
[2021-08-24] MEDS ORDERED: FUROSEMIDE 20MG/2ML VIAL IVP NR (16:00)
[2021-08-24] MEDS: QUETIAPINE FUMARATE 25MG TABLET PO SCH (21:30)
[2021-08-25] VITALS (96 sets, daily range): BP systolic 87–195; BP diastolic 42–102
[2021-08-25] MEDS: IPRATROPIUM BROMIDE (0.02%) 0.5MG/2.5ML NEB HHN SCH ×4 (00:53→20:36)
[2021-08-25] MEDS: METHYLPREDNISOLONE SOD SUCC 40 MG/ML VIAL IV SCH ×3 (02:24→17:35)
[2021-08-25] MEDS: FENTANYL CITRATE/PF 2,500 MCG in SODIUM CHLORIDE 0.9% 200 ML IV PRN ×3 (03:31→19:38)
[2021-08-25 05:36] LABS: BASOPHILS % 0.4 % (0.0-2.0); HEMATOCRIT. 31.5 % (36.0-48.0); HEMOGLOBIN. 9.9 g/dL (12.0-16.0); LYMPHOCYTES % 11.3 % (20.0-50.0); MEAN CORPUSCULAR VOLUME 98.5 fL (81.0-99.0); MEAN PLATELET VOLUME 10.1 fl (7.4-10.4); MONOCYTES % 5.5 % (2.0-8.0); NEUTROPHILS % 80.8 % (40.0-76.0); PLATELET 232 x1000/uL (130-400); RED CELL DISTRIBUTION WIDTH 25.5 % (11.6-14.6)
[2021-08-25 05:45] LABS: CHLORIDE 101 mEq/L (98-107)
[2021-08-25] MEDS: POLYVINYL ALCOHOL OPHTH DROPS 15ML BOTHEYE SCH ×4 (06:00→23:05)
[2021-08-25] MEDS: PANTOPRAZOLE SODIUM 40 MG/VIAL IV SCH (08:29)
[2021-08-25] MEDS: QUETIAPINE FUMARATE 25MG TABLET PO SCH ×2 (08:30→21:16)
[2021-08-25] MEDS: NYSTATIN 100,000 UNITS/GM CREAM 15GM TOP SCH (08:30)
[2021-08-25] MEDS: ASCORBIC ACID 500 MG TABLET PO SCH (08:30)
[2021-08-25] MEDS: ZINC SULFATE 220 MG ( 50 ) CAPSULE PO SCH (08:30)
[2021-08-25] MEDS: MIDODRINE HCL 5MG TABLET PO SCH ×3 (08:30→17:36)
[2021-08-25] MEDS: DEXT 5%/0.45% NACL 1000ML 1,000 ML IV SCH (09:40)
[2021-08-25 09:45] LABS: BG BASE EXCESS 8.8 mmol/L (-2.0-2.0); BG CARBOXYHEMOGLOBIN 1.5 % (0.5-1.5); BG DEOXYHEMOGLOBIN 4.8 % (0.0-5.0); BG FRACTION INSPIRED OXYGEN 100; BG HCO3 ACT 34.7 mmol/L (22.0-26.0); BG METHEMOGLOBIN 0.3 % (0.0-1.5); BG OXYGEN SATURATION 95.1 % (92.0-98.5); BG OXYHEMOGLOBIN 93.4 % (94.0-97.0); BG PH 7.418 (7.350-7.450); BG PO2 73.5 mmHg (75.0-100.0); BG SAMPLE SITE RIGHT RADIAL; BG TOTAL HEMOGLOBIN 10.9 g/dL (12.0-18.0); BG VENT MODE VENT - P/C
[2021-08-25] MEDS: NYSTATIN POWDER 15GM TOP SCH ×2 (15:08→17:36)
[2021-08-25] MEDS ORDERED: FUROSEMIDE 20MG/2ML VIAL IVP NR (15:15)
[2021-08-25] MEDS: MIDAZOLAM HCL 100 MG in SODIUM CHLORIDE 0.9% 80 ML IV PRN (22:52)
[2021-08-26] VITALS (98 sets, daily range): BP systolic 87–156; BP diastolic 41–83
[2021-08-26] MEDS: IPRATROPIUM BROMIDE (0.02%) 0.5MG/2.5ML NEB HHN SCH ×4 (00:11→21:13)
[2021-08-26] MEDS: PHENYLEPHRINE 100 MG in DEXT 5% WATER 240 ML IV PRN (00:25)
[2021-08-26] MEDS: METHYLPREDNISOLONE SOD SUCC 40 MG/ML VIAL IV SCH ×3 (02:23→17:34)
[2021-08-26] MEDS: FENTANYL CITRATE/PF 2,500 MCG in SODIUM CHLORIDE 0.9% 200 ML IV PRN ×3 (02:57→17:31)
[2021-08-26 05:32] LABS: BASOPHILS % 0.5 % (0.0-2.0); EOSINOPHILS % 0.2 % (0.0-5.0); HEMATOCRIT. 30.8 % (36.0-48.0); HEMOGLOBIN. 9.7 g/dL (12.0-16.0); LYMPHOCYTES % 14.8 % (20.0-50.0); MEAN CORPUSCULAR HEMOGLOBIN 31.1 pg (28.0-32.0); MEAN CORPUSCULAR VOLUME 98.9 fL (81.0-99.0); MEAN PLATELET VOLUME 9.4 fl (7.4-10.4); MONOCYTES % 4.6 % (2.0-8.0); NEUTROPHILS % 79.9 % (40.0-76.0); PLATELET 269 x1000/uL (130-400); RED BLOOD CELL COUNT 3.12 mill/uL (4.2-5.4); RED CELL DISTRIBUTION WIDTH 25.1 % (11.6-14.6)
[2021-08-26] MEDS: POLYVINYL ALCOHOL OPHTH DROPS 15ML BOTHEYE SCH ×4 (05:42→23:08)
[2021-08-26 05:57] LABS: CHLORIDE 101 mEq/L (98-107)
[2021-08-26] MEDS: ZINC SULFATE 220 MG ( 50 ) CAPSULE PO SCH (08:11)
[2021-08-26] MEDS: PANTOPRAZOLE SODIUM 40 MG/VIAL IV SCH (08:11)
[2021-08-26] MEDS: ASCORBIC ACID 500 MG TABLET PO SCH (08:11)
[2021-08-26] MEDS: MIDODRINE HCL 5MG TABLET PO SCH ×3 (08:11→17:34)
[2021-08-26] MEDS: QUETIAPINE FUMARATE 25MG TABLET PO SCH (08:11)
[2021-08-26] MEDS: NYSTATIN POWDER 15GM TOP SCH ×3 (08:13→17:35)
[2021-08-26 09:47] LABS: BG BASE EXCESS 9.2 mmol/L (-2.0-2.0); BG DEOXYHEMOGLOBIN 2.6 % (0.0-5.0); BG FRACTION INSPIRED OXYGEN 100; BG HCO3 ACT 35.8 mmol/L (22.0-26.0); BG METHEMOGLOBIN 0.4 % (0.0-1.5); BG OXYGEN SATURATION 97.3 % (92.0-98.5); BG PCO2 60.8 mmHg (35.0-45.0); BG PH 7.388 (7.350-7.450); BG PO2 96.3 mmHg (75.0-100.0); BG SAMPLE SITE RIGHT RADIAL; BG TOTAL HEMOGLOBIN 10.1 g/dL (12.0-18.0); BG VENT MODE VENT - P/C
[2021-08-26] MEDS: MIDAZOLAM HCL 100 MG in SODIUM CHLORIDE 0.9% 80 ML IV PRN (19:21)
[2021-08-26] MEDS ORDERED: QUETIAPINE FUMARATE 50MG TABLET PO SCH (21:00)
[2021-08-27] VITALS (93 sets, daily range): BP systolic 101–159; BP diastolic 47–103
[2021-08-27] MEDS: FENTANYL CITRATE/PF 2,500 MCG in SODIUM CHLORIDE 0.9% 200 ML IV PRN ×3 (00:56→16:57)
[2021-08-27] MEDS: METHYLPREDNISOLONE SOD SUCC 40 MG/ML VIAL IV SCH ×3 (01:35→18:16)
[2021-08-27] MEDS: IPRATROPIUM BROMIDE (0.02%) 0.5MG/2.5ML NEB HHN SCH ×4 (04:09→20:41)
[2021-08-27] MEDS: POLYVINYL ALCOHOL OPHTH DROPS 15ML BOTHEYE SCH ×3 (05:39→18:17)
[2021-08-27] MEDS: ZINC SULFATE 220 MG ( 50 ) CAPSULE GT SCH (09:17)
[2021-08-27] MEDS: PANTOPRAZOLE SODIUM 40 MG/VIAL IV SCH (09:17)
[2021-08-27] MEDS: MIDODRINE HCL 5MG TABLET GT SCH ×3 (09:18→17:03)
[2021-08-27] MEDS: ASCORBIC ACID 500 MG TABLET GT SCH (09:19)
[2021-08-27] MEDS: QUETIAPINE FUMARATE 50MG TABLET GT SCH ×2 (09:21→22:07)
[2021-08-27] MEDS: NYSTATIN POWDER 15GM TOP SCH ×3 (09:21→16:58)
[2021-08-27 09:38] LABS: BG BASE EXCESS 10.4 mmol/L (-2.0-2.0); BG CARBOXYHEMOGLOBIN 2.4 % (0.5-1.5); BG DEOXYHEMOGLOBIN 1.8 % (0.0-5.0); BG FRACTION INSPIRED OXYGEN 100; BG HCO3 ACT 36.6 mmol/L (22.0-26.0); BG METHEMOGLOBIN 0.3 % (0.0-1.5); BG OXYGEN SATURATION 98.2 % (92.0-98.5); BG OXYHEMOGLOBIN 95.5 % (94.0-97.0); BG PH 7.425 (7.350-7.450); BG SAMPLE SITE RIGHT RADIAL; BG TOTAL HEMOGLOBIN 11.1 g/dL (12.0-18.0); BG VENT MODE VENT - P/C
[2021-08-28] VITALS (93 sets, daily range): BP systolic 95–164; BP diastolic 54–97
[2021-08-28] MEDS: IPRATROPIUM BROMIDE (0.02%) 0.5MG/2.5ML NEB HHN SCH ×4 (00:32→20:57)
[2021-08-28] MEDS: POLYVINYL ALCOHOL OPHTH DROPS 15ML BOTHEYE SCH ×4 (01:20→23:44)
[2021-08-28] MEDS: FENTANYL CITRATE/PF 2,500 MCG in SODIUM CHLORIDE 0.9% 200 ML IV PRN ×4 (02:03→23:31)
[2021-08-28] MEDS: METHYLPREDNISOLONE SOD SUCC 40 MG/ML VIAL IV SCH ×3 (03:01→17:12)
[2021-08-28] MEDS: ZINC SULFATE 220 MG ( 50 ) CAPSULE GT SCH (09:11)
[2021-08-28] MEDS: PANTOPRAZOLE SODIUM 40 MG/VIAL IV SCH (09:11)
[2021-08-28] MEDS: QUETIAPINE FUMARATE 50MG TABLET GT SCH ×2 (09:11→21:20)
[2021-08-28] MEDS: ASCORBIC ACID 500 MG TABLET GT SCH (09:11)
[2021-08-28] MEDS: MIDODRINE HCL 5MG TABLET GT SCH ×3 (09:11→17:13)
[2021-08-28 09:12] LABS: BG BASE EXCESS 11.8 mmol/L (-2.0-2.0); BG CARBOXYHEMOGLOBIN 2.1 % (0.5-1.5); BG DEOXYHEMOGLOBIN 8.3 % (0.0-5.0); BG HCO3 ACT 37.5 mmol/L (22.0-26.0); BG METHEMOGLOBIN 0.8 % (0.0-1.5); BG OXYGEN SATURATION 91.5 % (92.0-98.5); BG OXYHEMOGLOBIN 88.8 % (94.0-97.0); BG PCO2 53.6 mmHg (35.0-45.0); BG PH 7.463 (7.350-7.450); BG PO2 61.7 mmHg (75.0-100.0); BG SAMPLE SITE RIGHT RADIAL; BG TOTAL HEMOGLOBIN 12.6 g/dL (12.0-18.0); BG TOTAL RESPIRATORY RATE 36 b/min; BG VENT MODE VENT - P/C
[2021-08-28] MEDS: NYSTATIN POWDER 15GM TOP SCH ×3 (09:14→17:14)
[2021-08-28] MEDS ORDERED: DILTIAZEM HCL 125 MG in DEXT 5% WATER 100 ML IV PRN (11:30)
[2021-08-28] MEDS: DILTIAZEM HCL 30MG TABLET PO SCH ×3 (13:27→23:37)
[2021-08-28] MEDS: LORAZEPAM 2MG/ML CPJ IV PRN (14:37)
[2021-08-29] VITALS (91 sets, daily range): BP systolic 93–131; BP diastolic 49–74
[2021-08-29] MEDS: IPRATROPIUM BROMIDE (0.02%) 0.5MG/2.5ML NEB HHN SCH ×4 (00:38→20:52)
[2021-08-29] MEDS: METHYLPREDNISOLONE SOD SUCC 40 MG/ML VIAL IV SCH ×3 (02:08→17:30)
[2021-08-29] MEDS: LORAZEPAM 2MG/ML CPJ IV PRN ×2 (02:08→16:18)
[2021-08-29] MEDS: DILTIAZEM HCL 30MG TABLET PO SCH ×3 (05:56→17:26)
[2021-08-29] MEDS: POLYVINYL ALCOHOL OPHTH DROPS 15ML BOTHEYE SCH ×3 (05:58→17:30)
[2021-08-29] MEDS: MIDODRINE HCL 5MG TABLET GT SCH ×3 (08:17→16:22)
[2021-08-29] MEDS: ASCORBIC ACID 500 MG TABLET GT SCH (08:17)
[2021-08-29] MEDS: PANTOPRAZOLE SODIUM 40 MG/VIAL IV SCH (08:17)
[2021-08-29] MEDS: ZINC SULFATE 220 MG ( 50 ) CAPSULE GT SCH (08:17)
[2021-08-29] MEDS: FENTANYL CITRATE/PF 2,500 MCG in SODIUM CHLORIDE 0.9% 200 ML IV PRN ×2 (08:17→18:58)
[2021-08-29] MEDS: QUETIAPINE FUMARATE 50MG TABLET GT SCH ×2 (08:17→21:11)
[2021-08-29] MEDS: NYSTATIN POWDER 15GM TOP SCH ×3 (08:18→16:22)
[2021-08-29 08:55] LABS: BG BASE EXCESS 9.1 mmol/L (-2.0-2.0); BG CARBOXYHEMOGLOBIN 2.5 % (0.5-1.5); BG DEOXYHEMOGLOBIN 8.4 % (0.0-5.0); BG HCO3 ACT 34.9 mmol/L (22.0-26.0); BG METHEMOGLOBIN 0.3 % (0.0-1.5); BG OXYGEN SATURATION 91.4 % (92.0-98.5); BG OXYHEMOGLOBIN 88.8 % (94.0-97.0); BG PH 7.436 (7.350-7.450); BG PO2 61.8 mmHg (75.0-100.0); BG SAMPLE SITE RIGHT RADIAL; BG TOTAL HEMOGLOBIN 11.9 g/dL (12.0-18.0); BG VENT MODE VENT - P/C
[2021-08-29] MEDS ORDERED: NALOXONE HCL 0.4MG/ML VIAL IV PRN (10:00)
[2021-08-30] VITALS (95 sets, daily range): BP systolic 96–160; BP diastolic 48–114
[2021-08-30] MEDS: POLYVINYL ALCOHOL OPHTH DROPS 15ML BOTHEYE SCH ×4 (00:09→18:13)
[2021-08-30] MEDS: DILTIAZEM HCL 30MG TABLET PO SCH ×4 (00:09→18:15)
[2021-08-30] MEDS: IPRATROPIUM BROMIDE (0.02%) 0.5MG/2.5ML NEB HHN SCH ×4 (01:34→20:33)
[2021-08-30] MEDS: METHYLPREDNISOLONE SOD SUCC 40 MG/ML VIAL IV SCH ×3 (01:43→18:08)
[2021-08-30 05:53] LABS: HEMATOCRIT. 35.5 % (36.0-48.0); HEMOGLOBIN. 11.1 g/dL (12.0-16.0); MEAN CORPUSCULAR VOLUME 99.4 fL (81.0-99.0); MEAN PLATELET VOLUME 9.8 fl (7.4-10.4); PLATELET 309 x1000/uL (130-400); RED BLOOD CELL COUNT 3.57 mill/uL (4.2-5.4); RED CELL DISTRIBUTION WIDTH 24.2 % (11.6-14.6)
[2021-08-30 06:02] LABS: CHLORIDE 105 mEq/L (98-107)
[2021-08-30] MEDS: PANTOPRAZOLE SODIUM 40 MG/VIAL IV SCH (08:35)
[2021-08-30] MEDS: ZINC SULFATE 220 MG ( 50 ) CAPSULE GT SCH (08:35)
[2021-08-30] MEDS: QUETIAPINE FUMARATE 50MG TABLET GT SCH ×2 (08:36→20:22)
[2021-08-30] MEDS: ASCORBIC ACID 500 MG TABLET GT SCH (08:36)
[2021-08-30] MEDS: MIDODRINE HCL 5MG TABLET GT SCH ×3 (08:38→18:12)
[2021-08-30] MEDS: NYSTATIN POWDER 15GM TOP SCH ×3 (08:39→18:12)
[2021-08-30] MEDS: FENTANYL CITRATE/PF 2,500 MCG in SODIUM CHLORIDE 0.9% 200 ML IV PRN ×2 (08:43→20:23)
[2021-08-30 08:51] LABS: BG BASE EXCESS 11.8 mmol/L (-2.0-2.0); BG CARBOXYHEMOGLOBIN 1.9 % (0.5-1.5); BG DEOXYHEMOGLOBIN 3.8 % (0.0-5.0); BG FRACTION INSPIRED OXYGEN 90; BG HCO3 ACT 37.5 mmol/L (22.0-26.0); BG METHEMOGLOBIN 0.3 % (0.0-1.5); BG OXYGEN SATURATION 96.1 % (92.0-98.5); BG PCO2 54.1 mmHg (35.0-45.0); BG PH 7.459 (7.350-7.450); BG SAMPLE SITE RIGHT RADIAL; BG TOTAL HEMOGLOBIN 12.2 g/dL (12.0-18.0); BG TOTAL RESPIRATORY RATE 46 b/min; BG VENT MODE VENT - P/C
[2021-08-30] MEDS: MORPHINE SULFATE 2 MG/ML CPJ (NOT FOR IM USE) IV PRN ×4 (12:31→21:30)
[2021-08-30 14:03] LABS: NUCLEATED RED BLOOD CELLS 1 /100 WBC; PLATELET ESTIMATE NORMAL
[2021-08-31] VITALS (97 sets, daily range): BP systolic 98–168; BP diastolic 41–117
[2021-08-31] MEDS: POLYVINYL ALCOHOL OPHTH DROPS 15ML BOTHEYE SCH ×4 (00:07→17:48)
[2021-08-31] MEDS: DILTIAZEM HCL 30MG TABLET PO SCH ×4 (00:09→17:46)
[2021-08-31] MEDS: IPRATROPIUM BROMIDE (0.02%) 0.5MG/2.5ML NEB HHN SCH ×4 (00:37→20:49)
[2021-08-31] MEDS: MORPHINE SULFATE 2 MG/ML CPJ (NOT FOR IM USE) IV PRN ×5 (00:59→22:17)
[2021-08-31] MEDS: METHYLPREDNISOLONE SOD SUCC 40 MG/ML VIAL IV SCH ×3 (03:05→17:46)
[2021-08-31 06:21] LABS: CHLORIDE 104 mEq/L (98-107)
[2021-08-31 06:35] LABS: PROTHROMBIN TIME 11.2 sec (9.6-11.0)
[2021-08-31] MEDS: PANTOPRAZOLE SODIUM 40 MG/VIAL IV SCH (08:01)
[2021-08-31] MEDS: NYSTATIN POWDER 15GM TOP SCH ×3 (08:03→17:47)
[2021-08-31] MEDS: ASCORBIC ACID 500 MG TABLET GT SCH (08:03)
[2021-08-31] MEDS: ZINC SULFATE 220 MG ( 50 ) CAPSULE GT SCH (08:04)
[2021-08-31] MEDS: MIDODRINE HCL 5MG TABLET GT SCH ×3 (08:04→17:00)
[2021-08-31] MEDS: QUETIAPINE FUMARATE 50MG TABLET GT SCH ×2 (08:04→22:10)
[2021-08-31 08:08] LABS: BG BASE EXCESS 7.3 mmol/L (-2.0-2.0); BG CARBOXYHEMOGLOBIN 1.8 % (0.5-1.5); BG DEOXYHEMOGLOBIN 2.7 % (0.0-5.0); BG HCO3 ACT 33.4 mmol/L (22.0-26.0); BG OXYGEN SATURATION 97.3 % (92.0-98.5); BG OXYHEMOGLOBIN 95.5 % (94.0-97.0); BG PCO2 54.6 mmHg (35.0-45.0); BG PH 7.405 (7.350-7.450); BG PO2 95.3 mmHg (75.0-100.0); BG SAMPLE SITE RIGHT RADIAL; BG TOTAL HEMOGLOBIN 11.6 g/dL (12.0-18.0); BG VENT MODE VENT - P/C
[2021-08-31] MEDS ORDERED: CEFAZOLIN 1000MG PREMIX 50 ML IV NR (09:00)
[2021-08-31 12:26] LABS: HEMATOCRIT. 35.1 % (36.0-48.0); HEMOGLOBIN. 11.1 g/dL (12.0-16.0); MEAN CORPUSCULAR HEMOGLOBIN 31.1 pg (28.0-32.0); MEAN CORPUSCULAR VOLUME 98.7 fL (81.0-99.0); MEAN PLATELET VOLUME 8.7 fl (7.4-10.4); PLATELET 295 x1000/uL (130-400); RED BLOOD CELL COUNT 3.56 mill/uL (4.2-5.4); RED CELL DISTRIBUTION WIDTH 23.3 % (11.6-14.6)
[2021-08-31 13:33] LABS: PLATELET ESTIMATE NORMAL
[2021-08-31] MEDS: FENTANYL CITRATE/PF 2,500 MCG in SODIUM CHLORIDE 0.9% 200 ML IV PRN (15:56)
[2021-08-31] MEDS: LORAZEPAM 2MG/ML CPJ IV PRN (20:39)
[2021-09-01] VITALS (96 sets, daily range): BP systolic 69–163; BP diastolic 43–122
[2021-09-01] MEDS: POLYVINYL ALCOHOL OPHTH DROPS 15ML BOTHEYE SCH ×5 (00:14→23:59)
[2021-09-01] MEDS: IPRATROPIUM BROMIDE (0.02%) 0.5MG/2.5ML NEB HHN SCH ×5 (00:46→20:12)
[2021-09-01] MEDS: METHYLPREDNISOLONE SOD SUCC 40 MG/ML VIAL IV SCH ×3 (02:11→17:39)
[2021-09-01] MEDS: DILTIAZEM HCL 30MG TABLET PO SCH ×5 (02:12→23:59)
[2021-09-01] MEDS: QUETIAPINE FUMARATE 50MG TABLET GT SCH ×2 (07:59→21:35)
[2021-09-01] MEDS: MIDODRINE HCL 5MG TABLET GT SCH ×3 (07:59→17:39)
[2021-09-01] MEDS: ASCORBIC ACID 500 MG TABLET GT SCH (07:59)
[2021-09-01] MEDS: ZINC SULFATE 220 MG ( 50 ) CAPSULE GT SCH (07:59)
[2021-09-01] MEDS: PANTOPRAZOLE SODIUM 40 MG/VIAL IV SCH (08:00)
[2021-09-01] MEDS: NYSTATIN POWDER 15GM TOP SCH ×3 (08:00→17:40)
[2021-09-01] MEDS ORDERED: FENTANYL CITRATE/PF 50MCG/ML 2ML VIAL ONE (10:25)
[2021-09-01] MEDS ORDERED: MIDAZOLAM HCL 5 MG/5 ML VIAL ONE (10:25)
[2021-09-01] MEDS ORDERED: MIDAZOLAM HCL 5 MG/5 ML VIAL IV PRN (10:40)
[2021-09-01] MEDS ORDERED: CEFAZOLIN 1000MG PREMIX 50 ML IV SCH (11:00)
[2021-09-01] MEDS: LORAZEPAM 2MG/ML CPJ IV PRN (15:03)
[2021-09-02] VITALS (96 sets, daily range): BP systolic 93–140; BP diastolic 32–78
[2021-09-02] MEDS: METHYLPREDNISOLONE SOD SUCC 40 MG/ML VIAL IV SCH ×3 (02:27→17:53)
[2021-09-02] MEDS: IPRATROPIUM BROMIDE (0.02%) 0.5MG/2.5ML NEB HHN SCH ×4 (03:31→20:41)
[2021-09-02] MEDS: DILTIAZEM HCL 30MG TABLET PO SCH ×4 (05:47→23:59)
[2021-09-02] MEDS: POLYVINYL ALCOHOL OPHTH DROPS 15ML BOTHEYE SCH ×4 (05:48→23:58)
[2021-09-02 06:01] LABS: HEMATOCRIT 33.6 % (36.0-48.0); HEMOGLOBIN 10.9 g/dL (12.0-16.0); MEAN CORPUSCULAR VOLUME 98.8 fL (81.0-99.0); PLATELET 273 x1000/uL (130-400); RED CELL DISTRIBUTION WIDTH 22.2 % (11.6-14.6)
[2021-09-02 06:19] LABS: CHLORIDE 104 mEq/L (98-107)
[2021-09-02] MEDS: ZINC SULFATE 220 MG ( 50 ) CAPSULE GT SCH (10:27)
[2021-09-02] MEDS: PANTOPRAZOLE SODIUM 40 MG/VIAL IV SCH (10:27)
[2021-09-02] MEDS: ASCORBIC ACID 500 MG TABLET GT SCH (10:27)
[2021-09-02] MEDS: QUETIAPINE FUMARATE 50MG TABLET GT SCH ×2 (10:28→21:22)
[2021-09-02] MEDS: MIDODRINE HCL 5MG TABLET GT SCH ×3 (10:28→17:53)
[2021-09-02] MEDS: LORAZEPAM 2MG/ML CPJ IV PRN ×2 (10:29→13:18)
[2021-09-02] MEDS: NYSTATIN POWDER 15GM TOP SCH ×3 (10:39→17:54)
[2021-09-03] VITALS (97 sets, daily range): BP systolic 96–162; BP diastolic 18–111
[2021-09-03] MEDS: METHYLPREDNISOLONE SOD SUCC 40 MG/ML VIAL IV SCH ×3 (02:08→17:33)
[2021-09-03] MEDS: POLYVINYL ALCOHOL OPHTH DROPS 15ML BOTHEYE SCH ×4 (05:38→23:36)
[2021-09-03] MEDS: DILTIAZEM HCL 30MG TABLET PO SCH ×4 (05:39→23:37)
[2021-09-03] MEDS: MORPHINE SULFATE 2 MG/ML CPJ (NOT FOR IM USE) IV PRN ×2 (06:56→19:35)
[2021-09-03] MEDS: IPRATROPIUM BROMIDE (0.02%) 0.5MG/2.5ML NEB HHN SCH ×3 (08:47→20:28)
[2021-09-03] MEDS: NYSTATIN POWDER 15GM TOP SCH ×3 (09:00→17:32)
[2021-09-03] MEDS: ZINC SULFATE 220 MG ( 50 ) CAPSULE GT SCH (09:00)
[2021-09-03] MEDS: QUETIAPINE FUMARATE 50MG TABLET GT SCH ×2 (09:00→22:08)
[2021-09-03] MEDS: ASCORBIC ACID 500 MG TABLET GT SCH (09:00)
[2021-09-03] MEDS: LORAZEPAM 2MG/ML CPJ IV PRN ×2 (09:01→17:33)
[2021-09-03] MEDS: MIDODRINE HCL 5MG TABLET GT SCH ×3 (09:01→17:31)
[2021-09-03] MEDS: ACETAMINOPHEN 650MG/20.3ML UDC PO PRN (22:44)
[2021-09-04] VITALS (96 sets, daily range): BP systolic 49–148; BP diastolic 15–99
[2021-09-04] MEDS: IPRATROPIUM BROMIDE (0.02%) 0.5MG/2.5ML NEB HHN SCH ×4 (00:14→21:22)
[2021-09-04] MEDS: METHYLPREDNISOLONE SOD SUCC 40 MG/ML VIAL IV SCH ×3 (01:58→18:08)
[2021-09-04] MEDS: DILTIAZEM HCL 30MG TABLET PO SCH ×3 (05:45→18:08)
[2021-09-04] MEDS: POLYVINYL ALCOHOL OPHTH DROPS 15ML BOTHEYE SCH ×4 (05:45→23:46)
[2021-09-04] MEDS: ZINC SULFATE 220 MG ( 50 ) CAPSULE GT SCH (08:42)
[2021-09-04] MEDS: QUETIAPINE FUMARATE 50MG TABLET GT SCH ×2 (08:43→20:56)
[2021-09-04] MEDS: ASCORBIC ACID 500 MG TABLET GT SCH (08:43)
[2021-09-04] MEDS: MIDODRINE HCL 5MG TABLET GT SCH ×3 (08:44→18:08)
[2021-09-04] MEDS: NYSTATIN POWDER 15GM TOP SCH ×3 (08:46→18:09)
[2021-09-04] MEDS: PANTOPRAZOLE SODIUM 40 MG/VIAL IV SCH (10:23)
[2021-09-04 11:57] LABS: BG BASE EXCESS 7.1 mmol/L (-2.0-2.0); BG CARBOXYHEMOGLOBIN 2.1 % (0.5-1.5); BG DEOXYHEMOGLOBIN 13.8 % (0.0-5.0); BG FRACTION INSPIRED OXYGEN 100; BG METHEMOGLOBIN 0.4 % (0.0-1.5); BG OXYGEN SATURATION 85.8 % (92.0-98.5); BG OXYHEMOGLOBIN 83.7 % (94.0-97.0); BG PCO2 81.8 mmHg (35.0-45.0); BG PH 7.273 (7.350-7.450); BG PO2 58.3 mmHg (75.0-100.0); BG SAMPLE SITE LEFT BRACHIAL; BG TOTAL HEMOGLOBIN 13.4 g/dL (12.0-18.0); BG VENT MODE VENT - P/C
[2021-09-04] MEDS ORDERED: PHENYLEPHRINE 50 MG in DEXT 5% WATER 245 ML IV PRN (12:15)
[2021-09-04] MEDS: MEROPENEM 1,000 MG in SODIUM CHLORIDE 0.9% 100 ML IV SCH ×2 (12:35→20:48)
[2021-09-04] MEDS: DOCUSATE SODIUM SUGAR FREE 100MG/10ML UDC NG SCH (12:36)
[2021-09-04] MEDS: ERGOCALCIFEROL 50000UNITS CAPSULE PO SCH (12:38)
[2021-09-04 12:51] LABS: HEMATOCRIT. 40.2 % (36.0-48.0); HEMOGLOBIN. 12.6 g/dL (12.0-16.0); MEAN CORPUSCULAR HEMOGLOBIN 31.7 pg (28.0-32.0); MEAN CORPUSCULAR VOLUME 101.5 fL (81.0-99.0); MEAN PLATELET VOLUME 9.4 fl (7.4-10.4); PLATELET 286 x1000/uL (130-400); RED BLOOD CELL COUNT 3.96 mill/uL (4.2-5.4); RED CELL DISTRIBUTION WIDTH 22.1 % (11.6-14.6)
[2021-09-04 13:03] LABS: CHLORIDE 99 mEq/L (98-107)
[2021-09-04 13:26] LABS: PLATELET ESTIMATE NORMAL
[2021-09-04] MEDS: MORPHINE SULFATE 2 MG/ML CPJ (NOT FOR IM USE) IV PRN (13:56)
[2021-09-04] MEDS ORDERED: SODIUM POLYSTYRENE SULFONATE 15 G/60 ML BOT PO NR (16:00)
[2021-09-04] MEDS: DILTIAZEM HCL 60MG TABLET PO SCH (23:46)
[2021-09-05] VITALS (97 sets, daily range): BP systolic 85–136; BP diastolic 35–83
[2021-09-05] MEDS: IPRATROPIUM BROMIDE (0.02%) 0.5MG/2.5ML NEB HHN SCH ×4 (00:28→20:08)
[2021-09-05] MEDS: METHYLPREDNISOLONE SOD SUCC 40 MG/ML VIAL IV SCH ×3 (01:58→16:58)
[2021-09-05] MEDS: MEROPENEM 1,000 MG in SODIUM CHLORIDE 0.9% 100 ML IV SCH ×3 (04:09→20:00)
[2021-09-05] MEDS: POLYVINYL ALCOHOL OPHTH DROPS 15ML BOTHEYE SCH ×3 (05:43→16:58)
[2021-09-05] MEDS: DILTIAZEM HCL 60MG TABLET PO SCH ×3 (05:43→16:59)
[2021-09-05 06:07] LABS: HEMATOCRIT. 39.8 % (36.0-48.0); HEMOGLOBIN. 12.2 g/dL (12.0-16.0); MEAN CORPUSCULAR HEMOGLOBIN 31.1 pg (28.0-32.0); MEAN CORPUSCULAR VOLUME 101.5 fL (81.0-99.0); MEAN PLATELET VOLUME 10.2 fl (7.4-10.4); PLATELET 278 x1000/uL (130-400); RED BLOOD CELL COUNT 3.92 mill/uL (4.2-5.4); RED CELL DISTRIBUTION WIDTH 21.8 % (11.6-14.6)
[2021-09-05 06:20] LABS: CHLORIDE 101 mEq/L (98-107)
[2021-09-05] MEDS ORDERED: LIDOCAINE HCL 1% 30ML VIAL (10MG/ML) ONE (08:09)
[2021-09-05 08:23] LABS: BG BASE EXCESS 4.4 mmol/L (-2.0-2.0); BG CARBOXYHEMOGLOBIN 0.9 % (0.5-1.5); BG DEOXYHEMOGLOBIN 6.9 % (0.0-5.0); BG HCO3 ACT 27.3 mmol/L (22.0-26.0); BG METHEMOGLOBIN 0.2 % (0.0-1.5); BG PCO2 35.3 mmHg (35.0-45.0); BG PH 7.507 (7.350-7.450); BG PO2 60.5 mmHg (75.0-100.0); BG SAMPLE SITE RIGHT RADIAL; BG TOTAL HEMOGLOBIN 13.8 g/dL (12.0-18.0); BG VENT MODE VENT - P/C
[2021-09-05] MEDS ORDERED: LIDOCAINE HCL/EPINEPHRINE 1%-EPI 1:100,000 10 ML VIAL INFIL SCH (09:00)
[2021-09-05] MEDS: DOCUSATE SODIUM SUGAR FREE 100MG/10ML UDC NG SCH (09:04)
[2021-09-05] MEDS: PANTOPRAZOLE SODIUM 40 MG/VIAL IV SCH (09:04)
[2021-09-05] MEDS: MIDODRINE HCL 5MG TABLET GT SCH ×3 (09:05→16:59)
[2021-09-05] MEDS: ZINC SULFATE 220 MG ( 50 ) CAPSULE GT SCH (09:05)
[2021-09-05] MEDS: QUETIAPINE FUMARATE 50MG TABLET GT SCH ×2 (09:05→21:00)
[2021-09-05] MEDS: ASCORBIC ACID 500 MG TABLET GT SCH (09:05)
[2021-09-05] MEDS: NYSTATIN POWDER 15GM TOP SCH ×3 (09:06→16:58)
[2021-09-05] MEDS ORDERED: VANCOMYCIN 1 G PREMIX 200 ML IV SCH (16:00)
[2021-09-05 16:42] LABS: PLATELET ESTIMATE NORMAL
[2021-09-05] MEDS: BISACODYL 10MG SUPP PR PRN (17:00)
[2021-09-05] MEDS: MORPHINE SULFATE 2 MG/ML CPJ (NOT FOR IM USE) IV PRN (20:43)
[2021-09-05 21:29] LABS: BG BASE EXCESS 7.5 mmol/L (-2.0-2.0); BG CARBOXYHEMOGLOBIN 1.5 % (0.5-1.5); BG DEOXYHEMOGLOBIN 19.1 % (0.0-5.0); BG FRACTION INSPIRED OXYGEN 100; BG HCO3 ACT 32.9 mmol/L (22.0-26.0); BG METHEMOGLOBIN 0.2 % (0.0-1.5); BG OXYGEN SATURATION 80.6 % (92.0-98.5); BG OXYHEMOGLOBIN 79.2 % (94.0-97.0); BG PCO2 49.1 mmHg (35.0-45.0); BG PH 7.444 (7.350-7.450); BG PO2 41.8 mmHg (75.0-100.0); BG SAMPLE SITE RIGHT RADIAL; BG TOTAL HEMOGLOBIN 13.6 g/dL (12.0-18.0); BG VENT MODE VENT - P/C
[2021-09-06] VITALS (82 sets, daily range): BP systolic 107–145; BP diastolic 54–96
[2021-09-06] MEDS: LORAZEPAM 2MG/ML CPJ IV PRN (00:33)
[2021-09-06] MEDS: POLYVINYL ALCOHOL OPHTH DROPS 15ML BOTHEYE SCH ×4 (01:00→18:02)
[2021-09-06] MEDS: MORPHINE SULFATE 2 MG/ML CPJ (NOT FOR IM USE) IV PRN ×5 (01:35→17:43)
[2021-09-06] MEDS: IPRATROPIUM BROMIDE (0.02%) 0.5MG/2.5ML NEB HHN SCH ×4 (02:11→19:55)
[2021-09-06] MEDS: METHYLPREDNISOLONE SOD SUCC 40 MG/ML VIAL IV SCH ×3 (03:22→21:35)
[2021-09-06] MEDS: MEROPENEM 1,000 MG in SODIUM CHLORIDE 0.9% 100 ML IV SCH ×3 (03:22→21:35)
[2021-09-06 06:05] LABS: CHLORIDE 103 mEq/L (98-107)
[2021-09-06 06:07] LABS: HEMATOCRIT. 39.6 % (36.0-48.0); HEMOGLOBIN. 12.2 g/dL (12.0-16.0); MEAN CORPUSCULAR HEMOGLOBIN 30.6 pg (28.0-32.0); MEAN CORPUSCULAR VOLUME 99.3 fL (81.0-99.0); MEAN PLATELET VOLUME 10.2 fl (7.4-10.4); PLATELET 225 x1000/uL (130-400); RED BLOOD CELL COUNT 3.99 mill/uL (4.2-5.4)
[2021-09-06] MEDS: DILTIAZEM HCL 60MG TABLET PO SCH ×4 (07:32→18:01)
[2021-09-06] MEDS: QUETIAPINE FUMARATE 50MG TABLET GT SCH ×2 (08:05→21:35)
[2021-09-06] MEDS: ZINC SULFATE 220 MG ( 50 ) CAPSULE GT SCH (08:05)
[2021-09-06] MEDS: DOCUSATE SODIUM SUGAR FREE 100MG/10ML UDC NG SCH (08:05)
[2021-09-06] MEDS: PANTOPRAZOLE SODIUM 40 MG/VIAL IV SCH (08:05)
[2021-09-06] MEDS: MIDODRINE HCL 5MG TABLET GT SCH ×3 (08:05→18:01)
[2021-09-06] MEDS: ASCORBIC ACID 500 MG TABLET GT SCH (08:05)
[2021-09-06] MEDS: NYSTATIN POWDER 15GM TOP SCH ×3 (08:07→18:04)
[2021-09-06] MEDS: VANCOMYCIN 1 G PREMIX 200 ML IV SCH (09:06)
[2021-09-06 09:25] LABS: BG BASE EXCESS 9.6 mmol/L (-2.0-2.0); BG CARBOXYHEMOGLOBIN 1.5 % (0.5-1.5); BG FRACTION INSPIRED OXYGEN 100; BG HCO3 ACT 34.7 mmol/L (22.0-26.0); BG METHEMOGLOBIN 0.3 % (0.0-1.5); BG OXYGEN SATURATION 94.9 % (92.0-98.5); BG OXYHEMOGLOBIN 93.2 % (94.0-97.0); BG PCO2 48.4 mmHg (35.0-45.0); BG PH 7.473 (7.350-7.450); BG PO2 71.7 mmHg (75.0-100.0); BG SAMPLE SITE RIGHT RADIAL; BG TOTAL HEMOGLOBIN 13.2 g/dL (12.0-18.0); BG VENT MODE VENT - PCV
[2021-09-06] MEDS ORDERED: POTASSIUM CHLORIDE 20MEQ/PACKET PO SCH (09:30)
[2021-09-06 10:18] LABS: PLATELET ESTIMATE NORMAL
[2021-09-06] MEDS: ACETAMINOPHEN 650MG/20.3ML UDC PO PRN (21:36)
[2021-09-07] VITALS (65 sets, daily range): BP systolic 91–155; BP diastolic 52–98
[2021-09-07] MEDS: LORAZEPAM 2MG/ML CPJ IV PRN ×3 (00:59→18:03)
[2021-09-07] MEDS: POLYVINYL ALCOHOL OPHTH DROPS 15ML BOTHEYE SCH ×4 (00:59→18:08)
[2021-09-07] MEDS: DILTIAZEM HCL 60MG TABLET PO SCH ×4 (00:59→18:04)
[2021-09-07] MEDS: MORPHINE SULFATE 2 MG/ML CPJ (NOT FOR IM USE) IV PRN ×4 (01:15→19:57)
[2021-09-07] MEDS: IPRATROPIUM BROMIDE (0.02%) 0.5MG/2.5ML NEB HHN SCH ×4 (02:06→23:15)
[2021-09-07] MEDS: MEROPENEM 1,000 MG in SODIUM CHLORIDE 0.9% 100 ML IV SCH ×2 (03:34→12:39)
[2021-09-07] MEDS: VANCOMYCIN 1 G PREMIX 200 ML IV SCH ×2 (04:36→22:13)
[2021-09-07 06:17] LABS: HEMATOCRIT. 38.5 % (36.0-48.0); HEMOGLOBIN. 11.9 g/dL (12.0-16.0); MEAN CORPUSCULAR HEMOGLOBIN 30.8 pg (28.0-32.0); MEAN CORPUSCULAR VOLUME 99.9 fL (81.0-99.0); MEAN PLATELET VOLUME 10.7 fl (7.4-10.4); PLATELET 204 x1000/uL (130-400); RED BLOOD CELL COUNT 3.85 mill/uL (4.2-5.4); RED CELL DISTRIBUTION WIDTH 21.8 % (11.6-14.6)
[2021-09-07 06:31] LABS: CHLORIDE 104 mEq/L (98-107)
[2021-09-07 08:49] LABS: BG BASE EXCESS 8.9 mmol/L (-2.0-2.0); BG CARBOXYHEMOGLOBIN 1.3 % (0.5-1.5); BG DEOXYHEMOGLOBIN 6.5 % (0.0-5.0); BG FRACTION INSPIRED OXYGEN 90; BG HCO3 ACT 33.9 mmol/L (22.0-26.0); BG METHEMOGLOBIN 0.3 % (0.0-1.5); BG OXYGEN SATURATION 93.4 % (92.0-98.5); BG OXYHEMOGLOBIN 91.9 % (94.0-97.0); BG PCO2 47.5 mmHg (35.0-45.0); BG PH 7.471 (7.350-7.450); BG PO2 66.6 mmHg (75.0-100.0); BG SAMPLE SITE RIGHT RADIAL; BG TOTAL HEMOGLOBIN 13.1 g/dL (12.0-18.0); BG VENT MODE VENT - P/C
[2021-09-07] MEDS: DOCUSATE SODIUM SUGAR FREE 100MG/10ML UDC NG SCH (09:29)
[2021-09-07] MEDS: METHYLPREDNISOLONE SOD SUCC 40 MG/ML VIAL IV SCH ×2 (09:29→22:12)
[2021-09-07] MEDS: PANTOPRAZOLE SODIUM 40 MG/VIAL IV SCH (09:30)
[2021-09-07] MEDS: ASCORBIC ACID 500 MG TABLET GT SCH (09:30)
[2021-09-07] MEDS: MIDODRINE HCL 5MG TABLET GT SCH ×3 (09:30→18:03)
[2021-09-07] MEDS: ZINC SULFATE 220 MG ( 50 ) CAPSULE GT SCH (09:30)
[2021-09-07] MEDS: QUETIAPINE FUMARATE 50MG TABLET GT SCH ×2 (09:30→22:15)
[2021-09-07] MEDS: NYSTATIN POWDER 15GM TOP SCH ×2 (09:31→12:42)
[2021-09-07 13:14] LABS: PLATELET ESTIMATE NORMAL
[2021-09-07] MEDS: CEFEPIME 1,000 MG in DEXTROSE 5% WATER 50 ML IV SCH (15:13)
[2021-09-07] MEDS: NYSTATIN/TRIAMCIN CREAM 15GM TOP SCH (22:13)
[2021-09-08] VITALS (97 sets, daily range): BP systolic 99–157; BP diastolic 17–102
[2021-09-08] MEDS: DILTIAZEM HCL 60MG TABLET PO SCH ×4 (00:45→17:45)
[2021-09-08] MEDS: POLYVINYL ALCOHOL OPHTH DROPS 15ML BOTHEYE SCH ×4 (00:45→17:46)
[2021-09-08] MEDS: IPRATROPIUM BROMIDE (0.02%) 0.5MG/2.5ML NEB HHN SCH ×4 (03:20→20:23)
[2021-09-08 05:40] LABS: HEMATOCRIT. 38.4 % (36.0-48.0); HEMOGLOBIN. 11.6 g/dL (12.0-16.0); MEAN CORPUSCULAR HEMOGLOBIN 29.9 pg (28.0-32.0); MEAN CORPUSCULAR VOLUME 98.9 fL (81.0-99.0); MEAN PLATELET VOLUME 10.7 fl (7.4-10.4); PLATELET 198 x1000/uL (130-400); RED BLOOD CELL COUNT 3.88 mill/uL (4.2-5.4); RED CELL DISTRIBUTION WIDTH 21.2 % (11.6-14.6)
[2021-09-08 07:03] LABS: CHLORIDE 105 mEq/L (98-107)
[2021-09-08] MEDS: NYSTATIN/TRIAMCIN CREAM 15GM TOP SCH ×4 (08:09→22:39)
[2021-09-08] MEDS: MIDODRINE HCL 5MG TABLET GT SCH ×3 (08:10→17:46)
[2021-09-08] MEDS: ZINC SULFATE 220 MG ( 50 ) CAPSULE GT SCH (08:10)
[2021-09-08] MEDS: DOCUSATE SODIUM SUGAR FREE 100MG/10ML UDC NG SCH (08:10)
[2021-09-08] MEDS: METHYLPREDNISOLONE SOD SUCC 40 MG/ML VIAL IV SCH ×2 (08:10→22:37)
[2021-09-08] MEDS: QUETIAPINE FUMARATE 50MG TABLET GT SCH ×2 (08:10→22:37)
[2021-09-08] MEDS: ASCORBIC ACID 500 MG TABLET GT SCH (08:10)
[2021-09-08] MEDS: PANTOPRAZOLE SODIUM 40 MG/VIAL IV SCH (08:10)
[2021-09-08] MEDS: MORPHINE SULFATE 2 MG/ML CPJ (NOT FOR IM USE) IV PRN ×3 (08:11→17:58)
[2021-09-08 09:07] LABS: BG BASE EXCESS 7.2 mmol/L (-2.0-2.0); BG CARBOXYHEMOGLOBIN 1.5 % (0.5-1.5); BG DEOXYHEMOGLOBIN 4.4 % (0.0-5.0); BG HCO3 ACT 32.3 mmol/L (22.0-26.0); BG METHEMOGLOBIN 0.2 % (0.0-1.5); BG OXYGEN SATURATION 95.5 % (92.0-98.5); BG OXYHEMOGLOBIN 93.9 % (94.0-97.0); BG PCO2 47.6 mmHg (35.0-45.0); BG PH 7.449 (7.350-7.450); BG PO2 79.8 mmHg (75.0-100.0); BG SAMPLE SITE RIGHT RADIAL; BG TOTAL HEMOGLOBIN 12.9 g/dL (12.0-18.0); BG VENT MODE VENT - P/C
[2021-09-08] MEDS: VANCOMYCIN 750 MG PREMIX 150 ML IV SCH ×2 (10:14→22:37)
[2021-09-08 11:53] LABS: PLATELET ESTIMATE NORMAL
[2021-09-08] MEDS: LORAZEPAM 2MG/ML CPJ IV PRN (13:39)
[2021-09-08] MEDS: CEFEPIME 1,000 MG in DEXTROSE 5% WATER 50 ML IV SCH (14:38)
[2021-09-09] VITALS (81 sets, daily range): BP systolic 94–146; BP diastolic 47–93
[2021-09-09] MEDS: DILTIAZEM HCL 60MG TABLET PO SCH ×4 (00:03→17:01)
[2021-09-09] MEDS: POLYVINYL ALCOHOL OPHTH DROPS 15ML BOTHEYE SCH ×4 (00:04→17:00)
[2021-09-09] MEDS: IPRATROPIUM BROMIDE (0.02%) 0.5MG/2.5ML NEB HHN SCH ×4 (02:23→20:59)
[2021-09-09 05:49] LABS: HEMATOCRIT. 37.8 % (36.0-48.0); HEMOGLOBIN. 11.8 g/dL (12.0-16.0); MEAN CORPUSCULAR HEMOGLOBIN 30.7 pg (28.0-32.0); MEAN CORPUSCULAR VOLUME 98.4 fL (81.0-99.0); MEAN PLATELET VOLUME 10.5 fl (7.4-10.4); PLATELET 182 x1000/uL (130-400); RED BLOOD CELL COUNT 3.84 mill/uL (4.2-5.4); RED CELL DISTRIBUTION WIDTH 20.8 % (11.6-14.6)
[2021-09-09 05:52] LABS: CHLORIDE 105 mEq/L (98-107)
[2021-09-09] MEDS: PANTOPRAZOLE SODIUM 40 MG/VIAL IV SCH (08:46)
[2021-09-09] MEDS: METHYLPREDNISOLONE SOD SUCC 40 MG/ML VIAL IV SCH ×2 (08:47→21:28)
[2021-09-09] MEDS: DOCUSATE SODIUM SUGAR FREE 100MG/10ML UDC NG SCH (08:47)
[2021-09-09] MEDS: ASCORBIC ACID 500 MG TABLET GT SCH (08:50)
[2021-09-09] MEDS: QUETIAPINE FUMARATE 50MG TABLET GT SCH ×2 (08:50→21:28)
[2021-09-09] MEDS: MIDODRINE HCL 5MG TABLET GT SCH ×3 (08:50→17:00)
[2021-09-09] MEDS: ZINC SULFATE 220 MG ( 50 ) CAPSULE GT SCH (08:50)
[2021-09-09 10:11] LABS: BG CARBOXYHEMOGLOBIN 1.5 % (0.5-1.5); BG DEOXYHEMOGLOBIN 2.6 % (0.0-5.0); BG FRACTION INSPIRED OXYGEN 85; BG HCO3 ACT 30.9 mmol/L (22.0-26.0); BG METHEMOGLOBIN 0.4 % (0.0-1.5); BG OXYGEN SATURATION 97.3 % (92.0-98.5); BG OXYHEMOGLOBIN 95.5 % (94.0-97.0); BG PCO2 45.8 mmHg (35.0-45.0); BG PH 7.447 (7.350-7.450); BG PO2 93.5 mmHg (75.0-100.0); BG SAMPLE SITE LEFT RADIAL; BG TOTAL HEMOGLOBIN 12.4 g/dL (12.0-18.0); BG VENT MODE VENT - P/C
[2021-09-09] MEDS ORDERED: MORPHINE SULFATE 2 MG/ML CPJ (NOT FOR IM USE) IV PRN (11:00)
[2021-09-09] MEDS: VANCOMYCIN 750 MG PREMIX 150 ML IV SCH (11:11)
[2021-09-09] MEDS: MORPHINE SULFATE 2 MG/ML CPJ (NOT FOR IM USE) IV PRN ×2 (11:12→21:30)
[2021-09-09 11:22] LABS: PLATELET ESTIMATE NORMAL
[2021-09-09] MEDS: NYSTATIN/TRIAMCIN CREAM 15GM TOP SCH ×2 (13:07→17:00)
[2021-09-09] MEDS: CEFEPIME 1,000 MG in DEXTROSE 5% WATER 50 ML IV SCH (14:14)
[2021-09-09] MEDS ORDERED: PROPOFOL 200MG/20ML VIAL IV NR (17:45)
[2021-09-10] VITALS (81 sets, daily range): BP systolic 97–145; BP diastolic 48–99
[2021-09-10] MEDS: IPRATROPIUM BROMIDE (0.02%) 0.5MG/2.5ML NEB HHN SCH ×4 (00:52→20:19)
[2021-09-10] MEDS: POLYVINYL ALCOHOL OPHTH DROPS 15ML BOTHEYE SCH ×4 (00:55→18:18)
[2021-09-10] MEDS: VANCOMYCIN 750 MG PREMIX 150 ML IV SCH ×3 (00:55→23:10)
[2021-09-10] MEDS: DILTIAZEM HCL 60MG TABLET PO SCH ×4 (00:55→18:19)
[2021-09-10] MEDS: LORAZEPAM 2MG/ML CPJ IV PRN (05:42)
[2021-09-10] MEDS: POLYETHYLENE GLYCOL 3350 (17GM) 1 DOSE PACK PO PRN (09:52)
[2021-09-10] MEDS: METHYLPREDNISOLONE SOD SUCC 40 MG/ML VIAL IV SCH ×2 (09:52→21:32)
[2021-09-10] MEDS: DOCUSATE SODIUM SUGAR FREE 100MG/10ML UDC NG SCH (09:52)
[2021-09-10] MEDS: PANTOPRAZOLE SODIUM 40 MG/VIAL IV SCH (09:52)
[2021-09-10] MEDS: ZINC SULFATE 220 MG ( 50 ) CAPSULE GT SCH (09:52)
[2021-09-10] MEDS: QUETIAPINE FUMARATE 50MG TABLET GT SCH ×2 (09:52→21:32)
[2021-09-10] MEDS: ASCORBIC ACID 500 MG TABLET GT SCH (09:53)
[2021-09-10 10:47] LABS: BG BASE EXCESS 2.4 mmol/L (-2.0-2.0); BG CARBOXYHEMOGLOBIN 1.6 % (0.5-1.5); BG DEOXYHEMOGLOBIN 1.8 % (0.0-5.0); BG FRACTION INSPIRED OXYGEN 80; BG HCO3 ACT 27.9 mmol/L (22.0-26.0); BG METHEMOGLOBIN 0.3 % (0.0-1.5); BG OXYGEN SATURATION 98.2 % (92.0-98.5); BG OXYHEMOGLOBIN 96.3 % (94.0-97.0); BG PCO2 46.5 mmHg (35.0-45.0); BG PH 7.396 (7.350-7.450); BG PO2 112.3 mmHg (75.0-100.0); BG SAMPLE SITE RIGHT RADIAL; BG TOTAL HEMOGLOBIN 13.5 g/dL (12.0-18.0); BG VENT MODE VENT - P/C
[2021-09-10] MEDS: NYSTATIN/TRIAMCIN CREAM 15GM TOP SCH ×3 (13:47→18:18)
[2021-09-10] MEDS: CEFEPIME 1,000 MG in DEXTROSE 5% WATER 50 ML IV SCH (15:10)
[2021-09-10] MEDS: MORPHINE SULFATE 2 MG/ML CPJ (NOT FOR IM USE) IV PRN (15:10)
[2021-09-11] VITALS (97 sets, daily range): BP systolic 91–153; BP diastolic 24–92
[2021-09-11] MEDS: DILTIAZEM HCL 60MG TABLET PO SCH ×4 (00:34→18:41)
[2021-09-11] MEDS: POLYVINYL ALCOHOL OPHTH DROPS 15ML BOTHEYE SCH ×4 (00:48→18:41)
[2021-09-11] MEDS: LORAZEPAM 2MG/ML CPJ IV PRN (01:47)
[2021-09-11] MEDS: IPRATROPIUM BROMIDE (0.02%) 0.5MG/2.5ML NEB HHN SCH ×4 (02:11→21:04)
[2021-09-11 08:40] LABS: BG BASE EXCESS 6.4 mmol/L (-2.0-2.0); BG CARBOXYHEMOGLOBIN 1.6 % (0.5-1.5); BG DEOXYHEMOGLOBIN 5.9 % (0.0-5.0); BG FRACTION INSPIRED OXYGEN 80; BG HCO3 ACT 31.1 mmol/L (22.0-26.0); BG OXYHEMOGLOBIN 92.5 % (94.0-97.0); BG PCO2 44.7 mmHg (35.0-45.0); BG SAMPLE SITE RIGHT RADIAL; BG TOTAL HEMOGLOBIN 12.9 g/dL (12.0-18.0); BG TOTAL RESPIRATORY RATE 40 b/min; BG VENT MODE VENT - P/C
[2021-09-11] MEDS: METHYLPREDNISOLONE SOD SUCC 40 MG/ML VIAL IV SCH (09:03)
[2021-09-11] MEDS: PANTOPRAZOLE SODIUM 40 MG/VIAL IV SCH (09:03)
[2021-09-11] MEDS: DOCUSATE SODIUM SUGAR FREE 100MG/10ML UDC NG SCH (09:03)
[2021-09-11] MEDS: QUETIAPINE FUMARATE 50MG TABLET GT SCH (09:03)
[2021-09-11] MEDS: ASCORBIC ACID 500 MG TABLET GT SCH (09:03)
[2021-09-11] MEDS: ZINC SULFATE 220 MG ( 50 ) CAPSULE GT SCH (09:03)
[2021-09-11] MEDS: POLYETHYLENE GLYCOL 3350 (17GM) 1 DOSE PACK PO PRN (09:04)
[2021-09-11] MEDS: NYSTATIN/TRIAMCIN CREAM 15GM TOP SCH ×3 (09:08→18:41)
[2021-09-11] MEDS ORDERED: LORAZEPAM 2MG/ML CPJ IV PRN (10:15)
[2021-09-11] MEDS: ERGOCALCIFEROL 50000UNITS CAPSULE PO SCH (12:25)
[2021-09-11] MEDS: VANCOMYCIN 750 MG PREMIX 150 ML IV SCH (15:50)
[2021-09-11] MEDS: CEFEPIME 1,000 MG in DEXTROSE 5% WATER 50 ML IV SCH (18:40)
[2021-09-11] MEDS: QUETIAPINE FUMARATE 25MG TABLET GT SCH (21:25)
[2021-09-12] VITALS (62 sets, daily range): BP systolic 100–154; BP diastolic 54–90
[2021-09-12] MEDS: DILTIAZEM HCL 60MG TABLET PO SCH ×4 (00:12→17:01)
[2021-09-12] MEDS: POLYVINYL ALCOHOL OPHTH DROPS 15ML BOTHEYE SCH ×4 (00:12→17:00)
[2021-09-12] MEDS: IPRATROPIUM BROMIDE (0.02%) 0.5MG/2.5ML NEB HHN SCH ×4 (02:39→21:23)
[2021-09-12] MEDS: MORPHINE SULFATE 2 MG/ML CPJ (NOT FOR IM USE) IV PRN (04:46)
[2021-09-12] MEDS: VANCOMYCIN 750 MG PREMIX 150 ML IV SCH ×2 (05:55→16:59)
[2021-09-12 06:14] LABS: HEMATOCRIT. 37.2 % (36.0-48.0); HEMOGLOBIN. 11.8 g/dL (12.0-16.0); MEAN CORPUSCULAR HEMOGLOBIN 31.6 pg (28.0-32.0); MEAN CORPUSCULAR VOLUME 99.4 fL (81.0-99.0); MEAN PLATELET VOLUME 10.9 fl (7.4-10.4); PLATELET 151 x1000/uL (130-400); RED BLOOD CELL COUNT 3.74 mill/uL (4.2-5.4); RED CELL DISTRIBUTION WIDTH 20.8 % (11.6-14.6)
[2021-09-12 06:22] LABS: CHLORIDE 106 mEq/L (98-107)
[2021-09-12] MEDS: METHYLPREDNISOLONE SOD SUCC 40 MG/ML VIAL IV SCH (08:06)
[2021-09-12] MEDS: PANTOPRAZOLE SODIUM 40 MG/VIAL IV SCH (08:06)
[2021-09-12] MEDS: ZINC SULFATE 220 MG ( 50 ) CAPSULE GT SCH (08:06)
[2021-09-12] MEDS: QUETIAPINE FUMARATE 25MG TABLET GT SCH ×2 (08:06→21:09)
[2021-09-12] MEDS: DOCUSATE SODIUM SUGAR FREE 100MG/10ML UDC NG SCH (08:06)
[2021-09-12] MEDS: ASCORBIC ACID 500 MG TABLET GT SCH (08:06)
[2021-09-12] MEDS: NYSTATIN/TRIAMCIN CREAM 15GM TOP SCH ×3 (08:07→16:44)
[2021-09-12 08:36] LABS: BG BASE EXCESS 5.3 mmol/L (-2.0-2.0); BG CARBOXYHEMOGLOBIN 1.2 % (0.5-1.5); BG DEOXYHEMOGLOBIN 4.7 % (0.0-5.0); BG HCO3 ACT 29.7 mmol/L (22.0-26.0); BG METHEMOGLOBIN 0.3 % (0.0-1.5); BG OXYGEN SATURATION 95.2 % (92.0-98.5); BG OXYHEMOGLOBIN 93.8 % (94.0-97.0); BG PCO2 42.7 mmHg (35.0-45.0); BG PO2 76.3 mmHg (75.0-100.0); BG SAMPLE SITE RIGHT RADIAL; BG TOTAL HEMOGLOBIN 12.1 g/dL (12.0-18.0); BG VENT MODE VENT - AC
[2021-09-12] MEDS: LORAZEPAM 2MG/ML CPJ IV PRN (09:52)
[2021-09-12] MEDS: CEFEPIME 1,000 MG in DEXTROSE 5% WATER 50 ML IV SCH (15:24)
[2021-09-12 16:22] LABS: PLATELET ESTIMATE NORMAL
[2021-09-13] VITALS (49 sets, daily range): BP systolic 110–146; BP diastolic 52–91
[2021-09-13] MEDS: POLYVINYL ALCOHOL OPHTH DROPS 15ML BOTHEYE SCH ×5 (00:25→23:33)
[2021-09-13] MEDS: DILTIAZEM HCL 60MG TABLET PO SCH ×5 (00:25→23:33)
[2021-09-13] MEDS: IPRATROPIUM BROMIDE (0.02%) 0.5MG/2.5ML NEB HHN SCH ×4 (01:30→20:35)
[2021-09-13] MEDS: LORAZEPAM 2MG/ML CPJ IV PRN ×4 (02:37→23:33)
[2021-09-13] MEDS: MORPHINE SULFATE 2 MG/ML CPJ (NOT FOR IM USE) IV PRN ×2 (04:59→09:44)
[2021-09-13] MEDS: VANCOMYCIN 750 MG PREMIX 150 ML IV SCH ×2 (05:02→17:07)
[2021-09-13 05:55] LABS: HEMATOCRIT. 36.9 % (36.0-48.0); HEMOGLOBIN. 11.6 g/dL (12.0-16.0); MEAN CORPUSCULAR HEMOGLOBIN 30.9 pg (28.0-32.0); MEAN PLATELET VOLUME 10.7 fl (7.4-10.4); PLATELET 144 x1000/uL (130-400); RED BLOOD CELL COUNT 3.76 mill/uL (4.2-5.4); RED CELL DISTRIBUTION WIDTH 19.9 % (11.6-14.6)
[2021-09-13 05:59] LABS: CHLORIDE 106 mEq/L (98-107)
[2021-09-13] MEDS: ASCORBIC ACID 500 MG TABLET GT SCH (08:19)
[2021-09-13] MEDS: QUETIAPINE FUMARATE 25MG TABLET GT SCH ×2 (08:19→20:40)
[2021-09-13] MEDS: ZINC SULFATE 220 MG ( 50 ) CAPSULE GT SCH (08:19)
[2021-09-13] MEDS: METHYLPREDNISOLONE SOD SUCC 40 MG/ML VIAL IV SCH (08:20)
[2021-09-13] MEDS: PANTOPRAZOLE SODIUM 40 MG/VIAL IV SCH (08:20)
[2021-09-13] MEDS: DOCUSATE SODIUM SUGAR FREE 100MG/10ML UDC NG SCH (08:20)
[2021-09-13] MEDS: NYSTATIN/TRIAMCIN CREAM 15GM TOP SCH ×3 (08:21→17:07)
[2021-09-13 08:38] LABS: BG BASE EXCESS 9.6 mmol/L (-2.0-2.0); BG CARBOXYHEMOGLOBIN 1.6 % (0.5-1.5); BG DEOXYHEMOGLOBIN 7.4 % (0.0-5.0); BG FRACTION INSPIRED OXYGEN 80; BG HCO3 ACT 36.1 mmol/L (22.0-26.0); BG METHEMOGLOBIN 0.3 % (0.0-1.5); BG OXYGEN SATURATION 92.5 % (92.0-98.5); BG OXYHEMOGLOBIN 90.7 % (94.0-97.0); BG PCO2 57.9 mmHg (35.0-45.0); BG PH 7.413 (7.350-7.450); BG PO2 67.1 mmHg (75.0-100.0); BG SAMPLE SITE RIGHT RADIAL; BG TOTAL HEMOGLOBIN 12.5 g/dL (12.0-18.0); BG VENT MODE VENT - P/C
[2021-09-13 12:25] LABS: PLATELET ESTIMATE NORMAL
[2021-09-14] VITALS (48 sets, daily range): BP systolic 92–156; BP diastolic 51–111
[2021-09-14] MEDS: IPRATROPIUM BROMIDE (0.02%) 0.5MG/2.5ML NEB HHN SCH ×4 (01:57→21:22)
[2021-09-14] MEDS: POLYVINYL ALCOHOL OPHTH DROPS 15ML BOTHEYE SCH ×4 (05:28→23:28)
[2021-09-14] MEDS: VANCOMYCIN 750 MG PREMIX 150 ML IV SCH ×2 (05:28→17:05)
[2021-09-14] MEDS: DILTIAZEM HCL 60MG TABLET PO SCH ×4 (05:29→23:29)
[2021-09-14 06:20] LABS: HEMATOCRIT. 36.4 % (36.0-48.0); HEMOGLOBIN. 11.5 g/dL (12.0-16.0); MEAN CORPUSCULAR HEMOGLOBIN 31.4 pg (28.0-32.0); MEAN CORPUSCULAR VOLUME 99.1 fL (81.0-99.0); MEAN PLATELET VOLUME 10.2 fl (7.4-10.4); PLATELET 138 x1000/uL (130-400); RED BLOOD CELL COUNT 3.68 mill/uL (4.2-5.4); RED CELL DISTRIBUTION WIDTH 19.7 % (11.6-14.6)
[2021-09-14 06:22] LABS: CHLORIDE 103 mEq/L (98-107)
[2021-09-14] MEDS: DOCUSATE SODIUM SUGAR FREE 100MG/10ML UDC NG SCH (09:39)
[2021-09-14] MEDS: METHYLPREDNISOLONE SOD SUCC 40 MG/ML VIAL IV SCH (09:39)
[2021-09-14] MEDS: QUETIAPINE FUMARATE 25MG TABLET GT SCH ×2 (09:39→20:22)
[2021-09-14] MEDS: PANTOPRAZOLE SODIUM 40 MG/VIAL IV SCH (09:39)
[2021-09-14] MEDS: NYSTATIN/TRIAMCIN CREAM 15GM TOP SCH ×3 (09:41→17:05)
[2021-09-14 11:02] LABS: BG BASE EXCESS 10.6 mmol/L (-2.0-2.0); BG CARBOXYHEMOGLOBIN 1.7 % (0.5-1.5); BG DEOXYHEMOGLOBIN 10.2 % (0.0-5.0); BG FRACTION INSPIRED OXYGEN 75; BG HCO3 ACT 36.8 mmol/L (22.0-26.0); BG METHEMOGLOBIN 0.3 % (0.0-1.5); BG OXYGEN SATURATION 89.6 % (92.0-98.5); BG OXYHEMOGLOBIN 87.8 % (94.0-97.0); BG PCO2 56.4 mmHg (35.0-45.0); BG PH 7.432 (7.350-7.450); BG PO2 55.6 mmHg (75.0-100.0); BG SAMPLE SITE LEFT RADIAL; BG TOTAL HEMOGLOBIN 12.4 g/dL (12.0-18.0); BG VENT MODE VENT - P/C
[2021-09-14 11:49] LABS: PLATELET ESTIMATE NORMAL
[2021-09-14] MEDS: LORAZEPAM 2MG/ML CPJ IV PRN (12:13)
[2021-09-15] VITALS (46 sets, daily range): BP systolic 90–137; BP diastolic 23–95
[2021-09-15] MEDS: IPRATROPIUM BROMIDE (0.02%) 0.5MG/2.5ML NEB HHN SCH ×4 (00:56→21:03)
[2021-09-15 05:09] LABS: HEMATOCRIT. 35.3 % (36.0-48.0); HEMOGLOBIN. 11.1 g/dL (12.0-16.0); MEAN CORPUSCULAR VOLUME 98.4 fL (81.0-99.0); PLATELET 133 x1000/uL (130-400); RED BLOOD CELL COUNT 3.59 mill/uL (4.2-5.4); RED CELL DISTRIBUTION WIDTH 19.8 % (11.6-14.6)
[2021-09-15 05:13] LABS: CHLORIDE 102 mEq/L (98-107)
[2021-09-15] MEDS: VANCOMYCIN 750 MG PREMIX 150 ML IV SCH ×2 (05:25→17:31)
[2021-09-15] MEDS: POLYVINYL ALCOHOL OPHTH DROPS 15ML BOTHEYE SCH ×4 (05:25→23:36)
[2021-09-15] MEDS: DILTIAZEM HCL 60MG TABLET PO SCH ×4 (05:26→23:36)
[2021-09-15 05:28] LABS: VANCOMYCIN TROUGH 15.4 ug/mL (5.0-10.0)
[2021-09-15] MEDS: METHYLPREDNISOLONE SOD SUCC 40 MG/ML VIAL IV SCH (09:29)
[2021-09-15] MEDS: QUETIAPINE FUMARATE 25MG TABLET GT SCH ×2 (09:29→22:29)
[2021-09-15] MEDS: PANTOPRAZOLE SODIUM 40 MG/VIAL IV SCH (09:29)
[2021-09-15] MEDS: DOCUSATE SODIUM SUGAR FREE 100MG/10ML UDC NG SCH (09:29)
[2021-09-15] MEDS: NYSTATIN/TRIAMCIN CREAM 15GM TOP SCH ×3 (09:29→17:32)
[2021-09-15 12:40] LABS: PLATELET ESTIMATE NORMAL
[2021-09-15] MEDS: LORAZEPAM 2MG/ML CPJ IV PRN (12:57)
[2021-09-15] MEDS ORDERED: BISACODYL 10MG SUPP PR NR (13:30)
[2021-09-16] VITALS (36 sets, daily range): BP systolic 92–131; BP diastolic 42–95
[2021-09-16] MEDS: IPRATROPIUM BROMIDE (0.02%) 0.5MG/2.5ML NEB HHN SCH ×4 (00:10→20:32)
[2021-09-16] MEDS: VANCOMYCIN 750 MG PREMIX 150 ML IV SCH ×2 (05:21→17:59)
[2021-09-16] MEDS: POLYVINYL ALCOHOL OPHTH DROPS 15ML BOTHEYE SCH ×3 (05:21→18:00)
[2021-09-16] MEDS: DILTIAZEM HCL 60MG TABLET PO SCH ×3 (05:21→17:59)
[2021-09-16 05:39] LABS: CHLORIDE 101 mEq/L (98-107)
[2021-09-16 05:52] LABS: BASOPHILS % 0.2 % (0.0-2.0); EOSINOPHILS % 0.8 % (0.0-5.0); HEMOGLOBIN. 11.3 g/dL (12.0-16.0); MEAN CORPUSCULAR HEMOGLOBIN 30.7 pg (28.0-32.0); MEAN PLATELET VOLUME 10.5 fl (7.4-10.4); MONOCYTES % 2.9 % (2.0-8.0); NEUTROPHILS % 88.1 % (40.0-76.0); PLATELET 146 x1000/uL (130-400); RED BLOOD CELL COUNT 3.67 mill/uL (4.2-5.4); RED CELL DISTRIBUTION WIDTH 18.8 % (11.6-14.6)
[2021-09-16 08:07] LABS: BG BASE EXCESS 10.9 mmol/L (-2.0-2.0); BG CARBOXYHEMOGLOBIN 1.8 % (0.5-1.5); BG HCO3 ACT 38.1 mmol/L (22.0-26.0); BG METHEMOGLOBIN 0.3 % (0.0-1.5); BG OXYGEN SATURATION 95.9 % (92.0-98.5); BG OXYHEMOGLOBIN 93.9 % (94.0-97.0); BG PCO2 64.9 mmHg (35.0-45.0); BG PH 7.387 (7.350-7.450); BG PO2 78.7 mmHg (75.0-100.0); BG SAMPLE SITE RIGHT RADIAL; BG TOTAL HEMOGLOBIN 11.7 g/dL (12.0-18.0); BG VENT MODE VENT - P/C
[2021-09-16] MEDS: PANTOPRAZOLE SODIUM 40 MG/VIAL IV SCH (09:58)
[2021-09-16] MEDS: METHYLPREDNISOLONE SOD SUCC 40 MG/ML VIAL IV SCH (09:58)
[2021-09-16] MEDS: DOCUSATE SODIUM SUGAR FREE 100MG/10ML UDC NG SCH (09:58)
[2021-09-16] MEDS: QUETIAPINE FUMARATE 25MG TABLET GT SCH ×2 (09:58→21:36)
[2021-09-16] MEDS: NYSTATIN/TRIAMCIN CREAM 15GM TOP SCH ×3 (09:59→18:01)
[2021-09-16] MEDS: LORAZEPAM 2MG/ML CPJ IV PRN ×2 (10:59→21:33)
[2021-09-16] MEDS: ACETAMINOPHEN 650MG/20.3ML UDC PO PRN (21:34)
[2021-09-17] VITALS (55 sets, daily range): BP systolic 83–134; BP diastolic 37–81
[2021-09-17] MEDS: POLYVINYL ALCOHOL OPHTH DROPS 15ML BOTHEYE SCH ×5 (00:53→23:48)
[2021-09-17] MEDS: DILTIAZEM HCL 60MG TABLET PO SCH ×5 (00:53→23:46)
[2021-09-17] MEDS: IPRATROPIUM BROMIDE (0.02%) 0.5MG/2.5ML NEB HHN SCH ×4 (01:00→21:16)
[2021-09-17 05:40] LABS: HEMATOCRIT. 34.5 % (36.0-48.0); MEAN CORPUSCULAR HEMOGLOBIN 31.2 pg (28.0-32.0); MEAN CORPUSCULAR VOLUME 98.1 fL (81.0-99.0); MEAN PLATELET VOLUME 10.4 fl (7.4-10.4); PLATELET 143 x1000/uL (130-400); RED BLOOD CELL COUNT 3.52 mill/uL (4.2-5.4); RED CELL DISTRIBUTION WIDTH 18.6 % (11.6-14.6)
[2021-09-17 05:56] LABS: CHLORIDE 99 mEq/L (98-107)
[2021-09-17 07:15] LABS: BG BASE EXCESS 11.6 mmol/L (-2.0-2.0); BG CARBOXYHEMOGLOBIN 1.7 % (0.5-1.5); BG DEOXYHEMOGLOBIN 4.6 % (0.0-5.0); BG HCO3 ACT 39.4 mmol/L (22.0-26.0); BG METHEMOGLOBIN 0.3 % (0.0-1.5); BG OXYGEN SATURATION 95.3 % (92.0-98.5); BG OXYHEMOGLOBIN 93.4 % (94.0-97.0); BG PCO2 69.2 mmHg (35.0-45.0); BG PH 7.373 (7.350-7.450); BG PO2 77.1 mmHg (75.0-100.0); BG SAMPLE SITE RIGHT RADIAL; BG TOTAL HEMOGLOBIN 11.8 g/dL (12.0-18.0); BG VENT MODE VENT - P/C
[2021-09-17] MEDS: PANTOPRAZOLE SODIUM 40 MG/VIAL IV SCH (08:05)
[2021-09-17] MEDS: METHYLPREDNISOLONE SOD SUCC 40 MG/ML VIAL IV SCH (08:05)
[2021-09-17] MEDS: ACETAMINOPHEN 650MG/20.3ML UDC PO PRN (08:05)
[2021-09-17] MEDS: DOCUSATE SODIUM SUGAR FREE 100MG/10ML UDC NG SCH (08:05)
[2021-09-17] MEDS: NYSTATIN/TRIAMCIN CREAM 15GM TOP SCH ×3 (08:06→17:27)
[2021-09-17 08:07] LABS: PLATELET ESTIMATE NORMAL
[2021-09-17] MEDS: QUETIAPINE FUMARATE 25MG TABLET GT SCH ×2 (08:07→21:38)
[2021-09-18] VITALS (59 sets, daily range): BP systolic 95–136; BP diastolic 52–77
[2021-09-18] MEDS: IPRATROPIUM BROMIDE (0.02%) 0.5MG/2.5ML NEB HHN SCH ×2 (01:01→08:03)
[2021-09-18] MEDS: DILTIAZEM HCL 60MG TABLET PO SCH ×3 (05:51→17:31)
[2021-09-18] MEDS: POLYVINYL ALCOHOL OPHTH DROPS 15ML BOTHEYE SCH ×3 (05:52→17:31)
[2021-09-18 05:54] LABS: HEMATOCRIT. 34.9 % (36.0-48.0); HEMOGLOBIN. 10.9 g/dL (12.0-16.0); MEAN CORPUSCULAR VOLUME 99.3 fL (81.0-99.0); MEAN PLATELET VOLUME 10.8 fl (7.4-10.4); PLATELET 145 x1000/uL (130-400); RED BLOOD CELL COUNT 3.52 mill/uL (4.2-5.4); RED CELL DISTRIBUTION WIDTH 19.2 % (11.6-14.6)
[2021-09-18 06:19] LABS: CHLORIDE 100 mEq/L (98-107)
[2021-09-18 07:25] LABS: PLATELET ESTIMATE NORMAL
[2021-09-18] MEDS: QUETIAPINE FUMARATE 25MG TABLET GT SCH ×2 (09:16→21:48)
[2021-09-18] MEDS: PANTOPRAZOLE SODIUM 40 MG/VIAL IV SCH (09:17)
[2021-09-18] MEDS: METHYLPREDNISOLONE SOD SUCC 40 MG/ML VIAL IV SCH (09:17)
[2021-09-18] MEDS: NYSTATIN/TRIAMCIN CREAM 15GM TOP SCH ×3 (09:17→17:31)
[2021-09-18] MEDS: DOCUSATE SODIUM SUGAR FREE 100MG/10ML UDC NG SCH (09:17)
[2021-09-18 10:08] LABS: BG BASE EXCESS 11.7 mmol/L (-2.0-2.0); BG CARBOXYHEMOGLOBIN 2.2 % (0.5-1.5); BG DEOXYHEMOGLOBIN 9.3 % (0.0-5.0); BG FRACTION INSPIRED OXYGEN 90; BG HCO3 ACT 38.8 mmol/L (22.0-26.0); BG METHEMOGLOBIN 0.2 % (0.0-1.5); BG OXYGEN SATURATION 90.5 % (92.0-98.5); BG OXYHEMOGLOBIN 88.3 % (94.0-97.0); BG PH 7.401 (7.350-7.450); BG PO2 58.2 mmHg (75.0-100.0); BG SAMPLE SITE RIGHT RADIAL; BG VENT MODE VENT - P/C
[2021-09-18] MEDS: LORAZEPAM 2MG/ML CPJ IV PRN (10:30)
[2021-09-18] MEDS: ERGOCALCIFEROL 50000UNITS CAPSULE PO SCH (12:43)
[2021-09-18] MEDS: VANCOMYCIN 750 MG PREMIX 150 ML IV SCH (16:26)
[2021-09-19] VITALS (58 sets, daily range): BP systolic 82–135; BP diastolic 45–84
[2021-09-19] MEDS: POLYVINYL ALCOHOL OPHTH DROPS 15ML BOTHEYE SCH ×4 (00:37→17:29)
[2021-09-19] MEDS: DILTIAZEM HCL 60MG TABLET PO SCH ×4 (00:37→17:29)
[2021-09-19] MEDS: VANCOMYCIN 750 MG PREMIX 150 ML IV SCH ×2 (04:26→16:29)
[2021-09-19 05:34] LABS: HEMATOCRIT. 34.8 % (36.0-48.0); MEAN CORPUSCULAR HEMOGLOBIN 31.6 pg (28.0-32.0); MEAN CORPUSCULAR VOLUME 100.3 fL (81.0-99.0); PLATELET 126 x1000/uL (130-400); RED BLOOD CELL COUNT 3.47 mill/uL (4.2-5.4); RED CELL DISTRIBUTION WIDTH 18.8 % (11.6-14.6)
[2021-09-19 05:36] LABS: CHLORIDE 100 mEq/L (98-107)
[2021-09-19 07:41] LABS: BG BASE EXCESS 12.6 mmol/L (-2.0-2.0); BG CARBOXYHEMOGLOBIN 1.8 % (0.5-1.5); BG HCO3 ACT 41.5 mmol/L (22.0-26.0); BG METHEMOGLOBIN 0.1 % (0.0-1.5); BG OXYGEN SATURATION 92.9 % (92.0-98.5); BG OXYHEMOGLOBIN 91.1 % (94.0-97.0); BG PCO2 80.8 mmHg (35.0-45.0); BG PH 7.329 (7.350-7.450); BG PO2 69.2 mmHg (75.0-100.0); BG SAMPLE SITE RIGHT RADIAL; BG TOTAL HEMOGLOBIN 11.7 g/dL (12.0-18.0); BG VENT MODE VENT - P/C
[2021-09-19] MEDS: DOCUSATE SODIUM SUGAR FREE 100MG/10ML UDC NG SCH (08:27)
[2021-09-19] MEDS: PANTOPRAZOLE SODIUM 40 MG/VIAL IV SCH (08:27)
[2021-09-19] MEDS: NYSTATIN/TRIAMCIN CREAM 15GM TOP SCH ×3 (08:28→17:29)
[2021-09-19] MEDS: QUETIAPINE FUMARATE 25MG TABLET GT SCH ×2 (08:28→21:10)
[2021-09-19] MEDS: METHYLPREDNISOLONE SOD SUCC 40 MG/ML VIAL IV SCH (08:28)
[2021-09-19 10:42] LABS: PLATELET ESTIMATE SLIGHTLY DECREASED
[2021-09-19] MEDS: ENOXAPARIN 40MG/0.4ML SYR SUBCUT SCH (11:25)
[2021-09-19 12:19] LABS: CLARITY URINE CLOUDY (CLEAR); COLOR URINE YELLOW (YELLOW); KETONES URINE NEGATIVE (NEGATIVE); LEUKOCYTE ESTERASE URINE 2+ (NEGATIVE); NITRITE URINE NEGATIVE (NEGATIVE); OCCULT BLOOD URINE NEGATIVE (NEGATIVE); PROTEIN URINE 1+ (NEGATIVE); SPECIFIC GRAVITY URINE 1.023 (1.005-1.030)
[2021-09-19] MEDS ORDERED: NALOXONE HCL 0.4MG/ML VIAL IV PRN (23:45)
[2021-09-20] VITALS (12 sets, daily range): BP systolic 104–147; BP diastolic 64–81
[2021-09-20] MEDS: DILTIAZEM HCL 60MG TABLET PO SCH ×5 (00:12→23:31)
[2021-09-20] MEDS: MORPHINE SULFATE 2 MG/ML CPJ (NOT FOR IM USE) IV PRN (00:14)
[2021-09-20] MEDS: VANCOMYCIN 750 MG PREMIX 150 ML IV SCH ×2 (03:38→16:52)
[2021-09-20] MEDS: POLYVINYL ALCOHOL OPHTH DROPS 15ML BOTHEYE SCH ×3 (06:00→13:26)
[2021-09-20 06:28] LABS: HEMATOCRIT. 34.1 % (36.0-48.0); HEMOGLOBIN. 10.8 g/dL (12.0-16.0); MEAN CORPUSCULAR HEMOGLOBIN 31.2 pg (28.0-32.0); MEAN CORPUSCULAR VOLUME 98.8 fL (81.0-99.0); MEAN PLATELET VOLUME 10.2 fl (7.4-10.4); PLATELET 163 x1000/uL (130-400); RED BLOOD CELL COUNT 3.46 mill/uL (4.2-5.4); RED CELL DISTRIBUTION WIDTH 18.4 % (11.6-14.6)
[2021-09-20 07:24] LABS: CHLORIDE 98 mEq/L (98-107)
[2021-09-20] MEDS: PANTOPRAZOLE SODIUM 40 MG/VIAL IV SCH (08:56)
[2021-09-20] MEDS: METHYLPREDNISOLONE SOD SUCC 40 MG/ML VIAL IV SCH (08:56)
[2021-09-20] MEDS: DOCUSATE SODIUM SUGAR FREE 100MG/10ML UDC NG SCH (08:57)
[2021-09-20] MEDS: QUETIAPINE FUMARATE 25MG TABLET GT SCH ×2 (08:57→21:05)
[2021-09-20] MEDS: NYSTATIN/TRIAMCIN CREAM 15GM TOP SCH ×3 (09:00→17:00)
[2021-09-20] MEDS: ENOXAPARIN 40MG/0.4ML SYR SUBCUT SCH (09:13)
[2021-09-20] MEDS: IPRATROPIUM BROMIDE (0.02%) 0.5MG/2.5ML NEB HHN SCH ×3 (09:40→20:06)
[2021-09-20 10:12] LABS: BG BASE EXCESS 14.8 mmol/L (-2.0-2.0); BG CARBOXYHEMOGLOBIN 1.7 % (0.5-1.5); BG DEOXYHEMOGLOBIN 5.6 % (0.0-5.0); BG FRACTION INSPIRED OXYGEN 100; BG METHEMOGLOBIN 0.3 % (0.0-1.5); BG OXYGEN SATURATION 94.3 % (92.0-98.5); BG OXYHEMOGLOBIN 92.4 % (94.0-97.0); BG PCO2 72.8 mmHg (35.0-45.0); BG PH 7.389 (7.350-7.450); BG PO2 74.6 mmHg (75.0-100.0); BG SAMPLE SITE RIGHT RADIAL; BG TOTAL HEMOGLOBIN 12.2 g/dL (12.0-18.0); BG VENT MODE VENT - P/C
[2021-09-20 14:10] LABS: PLATELET ESTIMATE NORMAL
[2021-09-21] VITALS (11 sets, daily range): BP systolic 91–130; BP diastolic 54–70
[2021-09-21] MEDS: IPRATROPIUM BROMIDE (0.02%) 0.5MG/2.5ML NEB HHN SCH ×4 (00:39→20:43)
[2021-09-21] MEDS: VANCOMYCIN 750 MG PREMIX 150 ML IV SCH ×2 (04:32→16:36)
[2021-09-21] MEDS: DILTIAZEM HCL 60MG TABLET PO SCH ×4 (06:13→23:13)
[2021-09-21 06:59] LABS: HEMATOCRIT. 31.8 % (36.0-48.0); HEMOGLOBIN. 10.7 g/dL (12.0-16.0); MEAN CORPUSCULAR HEMOGLOBIN 32.8 pg (28.0-32.0); MEAN CORPUSCULAR VOLUME 97.5 fL (81.0-99.0); MEAN PLATELET VOLUME 9.9 fl (7.4-10.4); PLATELET 155 x1000/uL (130-400); RED BLOOD CELL COUNT 3.26 mill/uL (4.2-5.4); RED CELL DISTRIBUTION WIDTH 18.8 % (11.6-14.6)
[2021-09-21 07:00] LABS: CHLORIDE 99 mEq/L (98-107)
[2021-09-21] MEDS: DOCUSATE SODIUM SUGAR FREE 100MG/10ML UDC NG SCH (08:57)
[2021-09-21] MEDS: PANTOPRAZOLE SODIUM 40 MG/VIAL IV SCH (08:57)
[2021-09-21] MEDS: METHYLPREDNISOLONE SOD SUCC 40 MG/ML VIAL IV SCH (08:57)
[2021-09-21] MEDS: QUETIAPINE FUMARATE 25MG TABLET GT SCH ×2 (08:57→20:35)
[2021-09-21] MEDS: NYSTATIN/TRIAMCIN CREAM 15GM TOP SCH ×3 (08:58→16:37)
[2021-09-21] MEDS: ENOXAPARIN 40MG/0.4ML SYR SUBCUT SCH (09:13)
[2021-09-21] MEDS ORDERED: POTASSIUM CHLORIDE 20MEQ/PACKET PEG NR (09:15)
[2021-09-21 09:51] LABS: NUCLEATED RED BLOOD CELLS 1 /100 WBC; PLATELET ESTIMATE NORMAL
[2021-09-21 10:34] LABS: BG BASE EXCESS 12.3 mmol/L (-2.0-2.0); BG CARBOXYHEMOGLOBIN 1.3 % (0.5-1.5); BG DEOXYHEMOGLOBIN 8.7 % (0.0-5.0); BG FRACTION INSPIRED OXYGEN 100; BG METHEMOGLOBIN 0.3 % (0.0-1.5); BG OXYGEN SATURATION 91.2 % (92.0-98.5); BG OXYHEMOGLOBIN 89.7 % (94.0-97.0); BG PCO2 61.9 mmHg (35.0-45.0); BG PH 7.417 (7.350-7.450); BG PO2 60.6 mmHg (75.0-100.0); BG SAMPLE SITE RIGHT RADIAL; BG VENT MODE VENT - P/C
[2021-09-21] MEDS: LORAZEPAM 2MG/ML CPJ IV PRN (13:42)
[2021-09-22] VITALS (36 sets, daily range): BP systolic 90–143; BP diastolic 43–85
[2021-09-22] MEDS: IPRATROPIUM BROMIDE (0.02%) 0.5MG/2.5ML NEB HHN SCH ×3 (00:54→20:45)
[2021-09-22] MEDS: VANCOMYCIN 750 MG PREMIX 150 ML IV SCH ×2 (03:08→15:56)
[2021-09-22] MEDS: DILTIAZEM HCL 60MG TABLET PO SCH ×4 (05:40→23:09)
[2021-09-22 07:30] LABS: HEMATOCRIT. 35.3 % (36.0-48.0); HEMOGLOBIN. 11.1 g/dL (12.0-16.0); MEAN CORPUSCULAR HEMOGLOBIN 31.4 pg (28.0-32.0); MEAN CORPUSCULAR VOLUME 100.2 fL (81.0-99.0); MEAN PLATELET VOLUME 10.1 fl (7.4-10.4); PLATELET 154 x1000/uL (130-400); RED BLOOD CELL COUNT 3.52 mill/uL (4.2-5.4)
[2021-09-22 07:57] LABS: CHLORIDE 101 mEq/L (98-107)
[2021-09-22] MEDS: DOCUSATE SODIUM SUGAR FREE 100MG/10ML UDC NG SCH (09:33)
[2021-09-22] MEDS: METHYLPREDNISOLONE SOD SUCC 40 MG/ML VIAL IV SCH (09:34)
[2021-09-22] MEDS: PANTOPRAZOLE SODIUM 40 MG/VIAL IV SCH (09:34)
[2021-09-22] MEDS: ENOXAPARIN 40MG/0.4ML SYR SUBCUT SCH (09:51)
[2021-09-22 10:25] LABS: BG CARBOXYHEMOGLOBIN 1.8 % (0.5-1.5); BG DEOXYHEMOGLOBIN 14.4 % (0.0-5.0); BG FRACTION INSPIRED OXYGEN 100; BG HCO3 ACT 40.5 mmol/L (22.0-26.0); BG METHEMOGLOBIN 0.2 % (0.0-1.5); BG OXYGEN SATURATION 85.3 % (92.0-98.5); BG OXYHEMOGLOBIN 83.6 % (94.0-97.0); BG PCO2 67.3 mmHg (35.0-45.0); BG PH 7.397 (7.350-7.450); BG PO2 49.8 mmHg (75.0-100.0); BG SAMPLE SITE RIGHT RADIAL; BG TOTAL HEMOGLOBIN 12.1 g/dL (12.0-18.0); BG VENT MODE VENT - P/C
[2021-09-22 11:39] LABS: NUCLEATED RED BLOOD CELLS 1 /100 WBC; PLATELET ESTIMATE NORMAL
[2021-09-22] MEDS: QUETIAPINE FUMARATE 25MG TABLET PO SCH ×2 (12:42→21:34)
[2021-09-23] VITALS (61 sets, daily range): BP systolic 85–147; BP diastolic 26–107
[2021-09-23] MEDS: IPRATROPIUM BROMIDE (0.02%) 0.5MG/2.5ML NEB HHN SCH ×4 (00:51→20:26)
[2021-09-23] MEDS: VANCOMYCIN 750 MG PREMIX 150 ML IV SCH ×2 (04:52→16:15)
[2021-09-23] MEDS: DILTIAZEM HCL 60MG TABLET PO SCH ×3 (05:02→18:02)
[2021-09-23 06:04] LABS: BASOPHILS % 0.8 % (0.0-2.0); EOSINOPHILS % 0.2 % (0.0-5.0); HEMATOCRIT. 35.4 % (36.0-48.0); HEMOGLOBIN. 10.9 g/dL (12.0-16.0); LYMPHOCYTES % 8.5 % (20.0-50.0); MEAN CORPUSCULAR HEMOGLOBIN 30.7 pg (28.0-32.0); MEAN CORPUSCULAR VOLUME 99.9 fL (81.0-99.0); MEAN PLATELET VOLUME 10.2 fl (7.4-10.4); MONOCYTES % 2.3 % (2.0-8.0); NEUTROPHILS % 88.2 % (40.0-76.0); PLATELET 168 x1000/uL (130-400); RED BLOOD CELL COUNT 3.54 mill/uL (4.2-5.4); RED CELL DISTRIBUTION WIDTH 18.6 % (11.6-14.6)
[2021-09-23 06:19] LABS: CHLORIDE 100 mEq/L (98-107)
[2021-09-23] MEDS: DOCUSATE SODIUM SUGAR FREE 100MG/10ML UDC NG SCH (09:01)
[2021-09-23] MEDS: QUETIAPINE FUMARATE 25MG TABLET PO SCH ×2 (09:01→21:34)
[2021-09-23] MEDS: PANTOPRAZOLE SODIUM 40 MG/VIAL IV SCH (09:02)
[2021-09-23] MEDS: METHYLPREDNISOLONE SOD SUCC 40 MG/ML VIAL IV SCH (09:02)
[2021-09-23] MEDS: ENOXAPARIN 40MG/0.4ML SYR SUBCUT SCH (10:30)
[2021-09-24] VITALS (48 sets, daily range): BP systolic 73–146; BP diastolic 37–105
[2021-09-24] MEDS: IPRATROPIUM BROMIDE (0.02%) 0.5MG/2.5ML NEB HHN SCH ×4 (02:09→20:17)
[2021-09-24 04:59] LABS: BASOPHILS % 0.7 % (0.0-2.0); EOSINOPHILS % 0.4 % (0.0-5.0); HEMATOCRIT. 33.3 % (36.0-48.0); HEMOGLOBIN. 10.5 g/dL (12.0-16.0); LYMPHOCYTES % 9.2 % (20.0-50.0); MEAN CORPUSCULAR HEMOGLOBIN 31.2 pg (28.0-32.0); MEAN CORPUSCULAR VOLUME 99.1 fL (81.0-99.0); MONOCYTES % 2.6 % (2.0-8.0); NEUTROPHILS % 87.1 % (40.0-76.0); PLATELET 178 x1000/uL (130-400); RED BLOOD CELL COUNT 3.36 mill/uL (4.2-5.4); RED CELL DISTRIBUTION WIDTH 18.7 % (11.6-14.6)
[2021-09-24 05:14] LABS: CHLORIDE 98 mEq/L (98-107)
[2021-09-24] MEDS: DILTIAZEM HCL 60MG TABLET PO SCH ×4 (06:44→18:59)
[2021-09-24] MEDS: ENOXAPARIN 40MG/0.4ML SYR SUBCUT SCH (09:26)
[2021-09-24] MEDS: DOCUSATE SODIUM SUGAR FREE 100MG/10ML UDC NG SCH (09:26)
[2021-09-24] MEDS: METHYLPREDNISOLONE SOD SUCC 40 MG/ML VIAL IV SCH (09:26)
[2021-09-24] MEDS: QUETIAPINE FUMARATE 25MG TABLET PO SCH ×2 (09:26→21:04)
[2021-09-24] MEDS: PANTOPRAZOLE SODIUM 40 MG/VIAL IV SCH (09:26)
[2021-09-24 10:47] LABS: BG BASE EXCESS 16.8 mmol/L (-2.0-2.0); BG CARBOXYHEMOGLOBIN 1.3 % (0.5-1.5); BG DEOXYHEMOGLOBIN 12.6 % (0.0-5.0); BG FRACTION INSPIRED OXYGEN 95; BG HCO3 ACT 44.7 mmol/L (22.0-26.0); BG METHEMOGLOBIN 0.2 % (0.0-1.5); BG OXYGEN SATURATION 87.2 % (92.0-98.5); BG OXYHEMOGLOBIN 85.9 % (94.0-97.0); BG PCO2 73.5 mmHg (35.0-45.0); BG PH 7.402 (7.350-7.450); BG PO2 53.7 mmHg (75.0-100.0); BG SAMPLE SITE RIGHT RADIAL; BG TOTAL HEMOGLOBIN 11.4 g/dL (12.0-18.0); BG VENT MODE VENT - P/C
[2021-09-24] MEDS: MORPHINE SULFATE 2 MG/ML CPJ (NOT FOR IM USE) IV PRN (11:26)
[2021-09-25] VITALS (48 sets, daily range): BP systolic 95–139; BP diastolic 53–85
[2021-09-25] MEDS: DILTIAZEM HCL 60MG TABLET PO SCH ×3 (00:12→12:34)
[2021-09-25] MEDS: IPRATROPIUM BROMIDE (0.02%) 0.5MG/2.5ML NEB HHN SCH ×4 (04:34→20:43)
[2021-09-25 05:58] LABS: BASOPHILS % 1.3 % (0.0-2.0); EOSINOPHILS % 0.1 % (0.0-5.0); HEMATOCRIT. 35.3 % (36.0-48.0); LYMPHOCYTES % 7.9 % (20.0-50.0); MEAN CORPUSCULAR HEMOGLOBIN 31.7 pg (28.0-32.0); MEAN CORPUSCULAR VOLUME 101.4 fL (81.0-99.0); MONOCYTES % 3.1 % (2.0-8.0); NEUTROPHILS % 87.6 % (40.0-76.0); PLATELET 196 x1000/uL (130-400); RED BLOOD CELL COUNT 3.48 mill/uL (4.2-5.4)
[2021-09-25 06:10] LABS: CHLORIDE 98 mEq/L (98-107)
[2021-09-25] MEDS: METHYLPREDNISOLONE SOD SUCC 40 MG/ML VIAL IV SCH (08:39)
[2021-09-25] MEDS: PANTOPRAZOLE SODIUM 40 MG/VIAL IV SCH (08:39)
[2021-09-25] MEDS: QUETIAPINE FUMARATE 25MG TABLET PO SCH (08:39)
[2021-09-25] MEDS: DOCUSATE SODIUM SUGAR FREE 100MG/10ML UDC NG SCH (08:40)
[2021-09-25 09:52] LABS: BG BASE EXCESS 17.3 mmol/L (-2.0-2.0); BG CARBOXYHEMOGLOBIN 1.1 % (0.5-1.5); BG DEOXYHEMOGLOBIN 2.3 % (0.0-5.0); BG FRACTION INSPIRED OXYGEN 100; BG HCO3 ACT 49.9 mmol/L (22.0-26.0); BG OXYGEN SATURATION 97.7 % (92.0-98.5); BG OXYHEMOGLOBIN 96.6 % (94.0-97.0); BG PCO2 124.5 mmHg (35.0-45.0); BG PH 7.221 (7.350-7.450); BG PO2 117.9 mmHg (75.0-100.0); BG SAMPLE SITE RIGHT RADIAL; BG TOTAL HEMOGLOBIN 11.9 g/dL (12.0-18.0); BG TOTAL RESPIRATORY RATE 43 b/min; BG VENT MODE VENT - P/C
[2021-09-25] MEDS: ENOXAPARIN 40MG/0.4ML SYR SUBCUT SCH (10:58)
[2021-09-25] MEDS: ERGOCALCIFEROL 50000UNITS CAPSULE PO SCH (12:32)
[2021-09-25 12:53] LABS: BG BASE EXCESS 16.8 mmol/L (-2.0-2.0); BG CARBOXYHEMOGLOBIN 1.6 % (0.5-1.5); BG DEOXYHEMOGLOBIN 1.5 % (0.0-5.0); BG FRACTION INSPIRED OXYGEN 100; BG HCO3 ACT 46.2 mmol/L (22.0-26.0); BG METHEMOGLOBIN 0.3 % (0.0-1.5); BG OXYGEN SATURATION 98.5 % (92.0-98.5); BG OXYHEMOGLOBIN 96.6 % (94.0-97.0); BG PCO2 88.6 mmHg (35.0-45.0); BG PH 7.335 (7.350-7.450); BG PO2 117.8 mmHg (75.0-100.0); BG SAMPLE SITE RIGHT RADIAL; BG TOTAL RESPIRATORY RATE 43 b/min; BG VENT MODE VENT - P/C
[2021-09-25] MEDS: VANCOMYCIN 750 MG PREMIX 150 ML IV SCH (16:40)
[2021-09-26] VITALS (49 sets, daily range): BP systolic 93–140; BP diastolic 51–87
[2021-09-26] MEDS: ACETAMINOPHEN 650MG/20.3ML UDC PO PRN (01:44)
[2021-09-26] MEDS: IPRATROPIUM BROMIDE (0.02%) 0.5MG/2.5ML NEB HHN SCH ×4 (02:10→20:58)
[2021-09-26 06:08] LABS: BASOPHILS % 1.4 % (0.0-2.0); EOSINOPHILS % 0.6 % (0.0-5.0); HEMATOCRIT. 32.2 % (36.0-48.0); HEMOGLOBIN. 10.1 g/dL (12.0-16.0); LYMPHOCYTES % 11.3 % (20.0-50.0); MEAN CORPUSCULAR HEMOGLOBIN 31.2 pg (28.0-32.0); MEAN CORPUSCULAR VOLUME 99.8 fL (81.0-99.0); MONOCYTES % 3.7 % (2.0-8.0); PLATELET 181 x1000/uL (130-400); RED BLOOD CELL COUNT 3.22 mill/uL (4.2-5.4); RED CELL DISTRIBUTION WIDTH 18.9 % (11.6-14.6)
[2021-09-26 06:15] LABS: CHLORIDE 100 mEq/L (98-107)
[2021-09-26] MEDS: VANCOMYCIN 750 MG PREMIX 150 ML IV SCH ×2 (06:19→18:41)
[2021-09-26] MEDS: LORAZEPAM 2MG/ML CPJ IV PRN ×2 (08:59→16:06)
[2021-09-26 09:15] LABS: BG BASE EXCESS 16.1 mmol/L (-2.0-2.0); BG CARBOXYHEMOGLOBIN 1.2 % (0.5-1.5); BG DEOXYHEMOGLOBIN 8.1 % (0.0-5.0); BG FRACTION INSPIRED OXYGEN 100; BG METHEMOGLOBIN 0.1 % (0.0-1.5); BG OXYGEN SATURATION 91.8 % (92.0-98.5); BG OXYHEMOGLOBIN 90.6 % (94.0-97.0); BG PCO2 57.5 mmHg (35.0-45.0); BG PH 7.481 (7.350-7.450); BG PO2 60.7 mmHg (75.0-100.0); BG SAMPLE SITE RIGHT RADIAL; BG TOTAL HEMOGLOBIN 10.9 g/dL (12.0-18.0); BG TOTAL RESPIRATORY RATE 42 b/min; BG VENT MODE VENT - P/C
[2021-09-26] MEDS: QUETIAPINE FUMARATE 25MG TABLET PO SCH ×2 (09:44→21:35)
[2021-09-26] MEDS: METHYLPREDNISOLONE SOD SUCC 40 MG/ML VIAL IV SCH (09:44)
[2021-09-26] MEDS: ENOXAPARIN 40MG/0.4ML SYR SUBCUT SCH (09:44)
[2021-09-26] MEDS: PANTOPRAZOLE SODIUM 40 MG/VIAL IV SCH (09:44)
[2021-09-26] MEDS: DOCUSATE SODIUM SUGAR FREE 100MG/10ML UDC NG SCH (09:44)
[2021-09-26] MEDS ORDERED: DOCUSATE SODIUM 100MG CAPSULE PEG SCH (11:15)
[2021-09-26] MEDS: DOCUSATE SODIUM SUGAR FREE 100MG/10ML UDC PEG SCH ×2 (11:39→17:50)
[2021-09-26] MEDS ORDERED: NALOXONE HCL 0.4MG/ML VIAL IV PRN (13:00)
[2021-09-26] MEDS: MORPHINE SULFATE 2 MG/ML CPJ (NOT FOR IM USE) IV PRN (13:09)
[2021-09-26] MEDS ORDERED: SENNOSIDES/DOCUSATE SOD 8.6/50MG TABLET PEG PRN (21:00)
[2021-09-27] VITALS (47 sets, daily range): BP systolic 94–140; BP diastolic 49–81
[2021-09-27] MEDS: MORPHINE SULFATE 2 MG/ML CPJ (NOT FOR IM USE) IV PRN ×3 (00:31→12:38)
[2021-09-27] MEDS: IPRATROPIUM BROMIDE (0.02%) 0.5MG/2.5ML NEB HHN SCH ×4 (01:08→20:19)
[2021-09-27 06:03] LABS: BASOPHILS % 0.9 % (0.0-2.0); EOSINOPHILS % 1.6 % (0.0-5.0); HEMATOCRIT. 34.2 % (36.0-48.0); HEMOGLOBIN. 10.7 g/dL (12.0-16.0); LYMPHOCYTES % 13.8 % (20.0-50.0); MEAN CORPUSCULAR HEMOGLOBIN 31.4 pg (28.0-32.0); MEAN PLATELET VOLUME 9.9 fl (7.4-10.4); MONOCYTES % 3.6 % (2.0-8.0); NEUTROPHILS % 80.1 % (40.0-76.0); PLATELET 191 x1000/uL (130-400); RED BLOOD CELL COUNT 3.42 mill/uL (4.2-5.4); RED CELL DISTRIBUTION WIDTH 18.7 % (11.6-14.6)
[2021-09-27 06:12] LABS: CHLORIDE 101 mEq/L (98-107)
[2021-09-27] MEDS: VANCOMYCIN 750 MG PREMIX 150 ML IV SCH (06:15)
[2021-09-27] MEDS: DOCUSATE SODIUM SUGAR FREE 100MG/10ML UDC PEG SCH ×2 (08:31→16:07)
[2021-09-27] MEDS: PANTOPRAZOLE SODIUM 40 MG/VIAL IV SCH (08:31)
[2021-09-27] MEDS: METHYLPREDNISOLONE SOD SUCC 40 MG/ML VIAL IV SCH (08:31)
[2021-09-27] MEDS: QUETIAPINE FUMARATE 25MG TABLET PO SCH ×2 (08:31→21:38)
[2021-09-27] MEDS: LORAZEPAM 2MG/ML CPJ IV PRN (08:31)
[2021-09-27 08:50] LABS: BG BASE EXCESS 11.5 mmol/L (-2.0-2.0); BG CARBOXYHEMOGLOBIN 1.5 % (0.5-1.5); BG DEOXYHEMOGLOBIN 10.5 % (0.0-5.0); BG FRACTION INSPIRED OXYGEN 90; BG HCO3 ACT 38.5 mmol/L (22.0-26.0); BG METHEMOGLOBIN 0.2 % (0.0-1.5); BG OXYGEN SATURATION 89.3 % (92.0-98.5); BG OXYHEMOGLOBIN 87.8 % (94.0-97.0); BG PCO2 63.7 mmHg (35.0-45.0); BG PH 7.399 (7.350-7.450); BG PO2 58.1 mmHg (75.0-100.0); BG SAMPLE SITE RIGHT RADIAL; BG TOTAL HEMOGLOBIN 11.1 g/dL (12.0-18.0); BG VENT MODE VENT - P/C
[2021-09-27] MEDS: ENOXAPARIN 40MG/0.4ML SYR SUBCUT SCH (10:22)
[2021-09-27] MEDS: LORAZEPAM 2MG/ML CPJ IM PRN (16:06)
[2021-09-27] MEDS: VANCOMYCIN 1 G PREMIX 200 ML IV SCH (23:12)
[2021-09-28] VITALS (50 sets, daily range): BP systolic 80–133; BP diastolic 15–94
[2021-09-28] MEDS: LORAZEPAM 2MG/ML CPJ IM PRN ×2 (00:07→11:25)
[2021-09-28] MEDS: IPRATROPIUM BROMIDE (0.02%) 0.5MG/2.5ML NEB HHN SCH ×4 (02:08→20:42)
[2021-09-28] MEDS: MORPHINE SULFATE 2 MG/ML CPJ (NOT FOR IM USE) IV PRN ×3 (05:23→17:11)
[2021-09-28 05:58] LABS: CHLORIDE 100 mEq/L (98-107)
[2021-09-28 06:02] LABS: BASOPHILS % 0.7 % (0.0-2.0); EOSINOPHILS % 0.9 % (0.0-5.0); HEMOGLOBIN. 10.4 g/dL (12.0-16.0); LYMPHOCYTES % 15.3 % (20.0-50.0); MEAN CORPUSCULAR HEMOGLOBIN 32.2 pg (28.0-32.0); MEAN CORPUSCULAR VOLUME 102.1 fL (81.0-99.0); NEUTROPHILS % 79.1 % (40.0-76.0); PLATELET 179 x1000/uL (130-400); RED BLOOD CELL COUNT 3.23 mill/uL (4.2-5.4); RED CELL DISTRIBUTION WIDTH 18.6 % (11.6-14.6)
[2021-09-28] MEDS: DOCUSATE SODIUM SUGAR FREE 100MG/10ML UDC PEG SCH ×2 (08:17→17:09)
[2021-09-28] MEDS: PANTOPRAZOLE SODIUM 40 MG/VIAL IV SCH (08:17)
[2021-09-28] MEDS: QUETIAPINE FUMARATE 25MG TABLET PO SCH ×2 (08:18→21:34)
[2021-09-28] MEDS: METHYLPREDNISOLONE SOD SUCC 40 MG/ML VIAL IV SCH (08:18)
[2021-09-28] MEDS: ENOXAPARIN 40MG/0.4ML SYR SUBCUT SCH (09:20)
[2021-09-28] MEDS: DILTIAZEM HCL 30MG TABLET PO SCH ×2 (15:07→21:35)
[2021-09-28] MEDS: VANCOMYCIN 1 G PREMIX 200 ML IV SCH (17:10)
[2021-09-29] VITALS (48 sets, daily range): BP systolic 110–152; BP diastolic 57–108
[2021-09-29] MEDS: MORPHINE SULFATE 2 MG/ML CPJ (NOT FOR IM USE) IV PRN ×4 (01:29→22:40)
[2021-09-29] MEDS: IPRATROPIUM BROMIDE (0.02%) 0.5MG/2.5ML NEB HHN SCH ×3 (02:08→15:55)
[2021-09-29 05:58] LABS: HEMATOCRIT. 33.4 % (36.0-48.0); HEMOGLOBIN. 10.3 g/dL (12.0-16.0); MEAN CORPUSCULAR HEMOGLOBIN 30.9 pg (28.0-32.0); PLATELET 204 x1000/uL (130-400); RED BLOOD CELL COUNT 3.34 mill/uL (4.2-5.4); RED CELL DISTRIBUTION WIDTH 18.7 % (11.6-14.6)
[2021-09-29 06:06] LABS: CHLORIDE 101 mEq/L (98-107)
[2021-09-29] MEDS: DILTIAZEM HCL 30MG TABLET PO SCH ×3 (06:18→21:02)
[2021-09-29 07:31] LABS: NUCLEATED RED BLOOD CELLS 3 /100 WBC
[2021-09-29 07:32] LABS: PLATELET ESTIMATE NORMAL
[2021-09-29] MEDS: QUETIAPINE FUMARATE 25MG TABLET PO SCH ×2 (09:10→21:01)
[2021-09-29] MEDS: DOCUSATE SODIUM SUGAR FREE 100MG/10ML UDC PEG SCH ×2 (09:10→17:22)
[2021-09-29] MEDS: METHYLPREDNISOLONE SOD SUCC 40 MG/ML VIAL IV SCH (09:10)
[2021-09-29] MEDS: ENOXAPARIN 40MG/0.4ML SYR SUBCUT SCH (09:11)
[2021-09-29] MEDS: PANTOPRAZOLE SODIUM 40 MG/VIAL IV SCH (09:11)
[2021-09-29] MEDS: VANCOMYCIN 1 G PREMIX 200 ML IV SCH (12:20)
[2021-09-30] VITALS (50 sets, daily range): BP systolic 91–139; BP diastolic 35–87
[2021-09-30] MEDS: LORAZEPAM 2MG/ML CPJ IV PRN ×3 (00:23→16:11)
[2021-09-30] MEDS: IPRATROPIUM BROMIDE (0.02%) 0.5MG/2.5ML NEB HHN SCH ×4 (00:26→21:18)
[2021-09-30 05:43] LABS: BASOPHILS % 0.5 % (0.0-2.0); EOSINOPHILS % 1.7 % (0.0-5.0); HEMATOCRIT. 30.6 % (36.0-48.0); HEMOGLOBIN. 9.4 g/dL (12.0-16.0); LYMPHOCYTES % 10.5 % (20.0-50.0); MEAN CORPUSCULAR VOLUME 101.1 fL (81.0-99.0); MONOCYTES % 3.8 % (2.0-8.0); NEUTROPHILS % 83.5 % (40.0-76.0); PLATELET 182 x1000/uL (130-400); RED BLOOD CELL COUNT 3.03 mill/uL (4.2-5.4)
[2021-09-30 05:49] LABS: CHLORIDE 101 mEq/L (98-107)
[2021-09-30] MEDS: DILTIAZEM HCL 30MG TABLET PO SCH ×3 (06:06→21:29)
[2021-09-30] MEDS: VANCOMYCIN 1 G PREMIX 200 ML IV SCH (06:07)
[2021-09-30 08:22] LABS: BG BASE EXCESS 13.4 mmol/L (-2.0-2.0); BG CARBOXYHEMOGLOBIN 1.5 % (0.5-1.5); BG DEOXYHEMOGLOBIN 6.1 % (0.0-5.0); BG HCO3 ACT 40.3 mmol/L (22.0-26.0); BG METHEMOGLOBIN 0.3 % (0.0-1.5); BG OXYGEN SATURATION 93.8 % (92.0-98.5); BG OXYHEMOGLOBIN 92.1 % (94.0-97.0); BG PCO2 64.3 mmHg (35.0-45.0); BG PH 7.415 (7.350-7.450); BG PO2 76.7 mmHg (75.0-100.0); BG SAMPLE SITE RIGHT RADIAL; BG VENT MODE VENT - P/C
[2021-09-30] MEDS: PANTOPRAZOLE SODIUM 40 MG/VIAL IV SCH (09:14)
[2021-09-30] MEDS: METHYLPREDNISOLONE SOD SUCC 40 MG/ML VIAL IV SCH (09:14)
[2021-09-30] MEDS: ENOXAPARIN 40MG/0.4ML SYR SUBCUT SCH (09:14)
[2021-09-30] MEDS: QUETIAPINE FUMARATE 25MG TABLET PO SCH ×2 (09:14→21:29)
[2021-09-30] MEDS: DOCUSATE SODIUM SUGAR FREE 100MG/10ML UDC PEG SCH ×2 (09:14→16:11)
[2021-09-30] MEDS: MORPHINE SULFATE 2 MG/ML CPJ (NOT FOR IM USE) IV PRN (19:04)
[2021-10-01] VITALS (77 sets, daily range): BP systolic 81–134; BP diastolic 43–72
[2021-10-01] MEDS: LORAZEPAM 2MG/ML CPJ IV PRN ×4 (00:13→23:12)
[2021-10-01] MEDS: IPRATROPIUM BROMIDE (0.02%) 0.5MG/2.5ML NEB HHN SCH ×4 (00:25→20:40)
[2021-10-01] MEDS: MORPHINE SULFATE 2 MG/ML CPJ (NOT FOR IM USE) IV PRN ×2 (02:25→17:25)
[2021-10-01 06:01] LABS: CHLORIDE 101 mEq/L (98-107)
[2021-10-01 06:09] LABS: BASOPHILS % 0.4 % (0.0-2.0); EOSINOPHILS % 0.6 % (0.0-5.0); HEMATOCRIT. 30.6 % (36.0-48.0); HEMOGLOBIN. 9.3 g/dL (12.0-16.0); LYMPHOCYTES % 11.3 % (20.0-50.0); MEAN CORPUSCULAR HEMOGLOBIN 31.2 pg (28.0-32.0); MEAN CORPUSCULAR VOLUME 102.2 fL (81.0-99.0); MEAN PLATELET VOLUME 9.6 fl (7.4-10.4); MONOCYTES % 4.5 % (2.0-8.0); NEUTROPHILS % 83.2 % (40.0-76.0); PLATELET 192 x1000/uL (130-400); RED BLOOD CELL COUNT 2.99 mill/uL (4.2-5.4)
[2021-10-01] MEDS: DILTIAZEM HCL 30MG TABLET PO SCH ×3 (06:32→22:21)
[2021-10-01] MEDS: VANCOMYCIN 1250MG in DEXTROSE 5% WATER 250ML IV SCH (06:32)
[2021-10-01] MEDS: DOCUSATE SODIUM SUGAR FREE 100MG/10ML UDC PEG SCH ×2 (08:12→16:58)
[2021-10-01] MEDS: QUETIAPINE FUMARATE 25MG TABLET PO SCH ×2 (08:12→22:20)
[2021-10-01] MEDS: METHYLPREDNISOLONE SOD SUCC 40 MG/ML VIAL IV SCH (08:13)
[2021-10-01] MEDS: PANTOPRAZOLE SODIUM 40 MG/VIAL IV SCH (08:15)
[2021-10-01] MEDS ORDERED: NOREPINEPHRINE 32 MG in DEXT 5% WATER 218 ML IV PRN (11:45)
[2021-10-01 12:39] LABS: BG BASE EXCESS 13.1 mmol/L (-2.0-2.0); BG CARBOXYHEMOGLOBIN 1.7 % (0.5-1.5); BG DEOXYHEMOGLOBIN 10.8 % (0.0-5.0); BG FRACTION INSPIRED OXYGEN 100; BG HCO3 ACT 40.1 mmol/L (22.0-26.0); BG METHEMOGLOBIN 0.2 % (0.0-1.5); BG OXYHEMOGLOBIN 87.3 % (94.0-97.0); BG PCO2 65.1 mmHg (35.0-45.0); BG PH 7.407 (7.350-7.450); BG PO2 59.4 mmHg (75.0-100.0); BG SAMPLE SITE RIGHT RADIAL; BG TOTAL HEMOGLOBIN 10.6 g/dL (12.0-18.0); BG TOTAL RESPIRATORY RATE 42 b/min; BG VENT MODE VENT - P/C
[2021-10-02] VITALS (81 sets, daily range): BP systolic 101–133; BP diastolic 51–76
[2021-10-02] MEDS: IPRATROPIUM BROMIDE (0.02%) 0.5MG/2.5ML NEB HHN SCH ×4 (04:27→20:22)
[2021-10-02 05:41] LABS: HEMATOCRIT. 32.6 % (36.0-48.0); HEMOGLOBIN. 10.1 g/dL (12.0-16.0); MEAN CORPUSCULAR HEMOGLOBIN 31.4 pg (28.0-32.0); MEAN CORPUSCULAR VOLUME 101.5 fL (81.0-99.0); PLATELET 215 x1000/uL (130-400); RED BLOOD CELL COUNT 3.21 mill/uL (4.2-5.4); RED CELL DISTRIBUTION WIDTH 19.2 % (11.6-14.6)
[2021-10-02] MEDS: VANCOMYCIN 1250MG in DEXTROSE 5% WATER 250ML IV SCH (05:41)
[2021-10-02] MEDS: DILTIAZEM HCL 30MG TABLET PO SCH ×3 (05:41→21:12)
[2021-10-02 05:50] LABS: CHLORIDE 101 mEq/L (98-107)
[2021-10-02] MEDS: LORAZEPAM 2MG/ML CPJ IV PRN ×2 (05:51→08:09)
[2021-10-02] MEDS: DOCUSATE SODIUM SUGAR FREE 100MG/10ML UDC PEG SCH ×2 (08:09→17:00)
[2021-10-02] MEDS: QUETIAPINE FUMARATE 25MG TABLET PO SCH ×2 (08:09→21:11)
[2021-10-02] MEDS: PANTOPRAZOLE SODIUM 40 MG/VIAL IV SCH (08:09)
[2021-10-02] MEDS: METHYLPREDNISOLONE SOD SUCC 40 MG/ML VIAL IV SCH (08:09)
[2021-10-02 09:22] LABS: BG BASE EXCESS 13.5 mmol/L (-2.0-2.0); BG CARBOXYHEMOGLOBIN 0.9 % (0.5-1.5); BG DEOXYHEMOGLOBIN 2.9 % (0.0-5.0); BG FRACTION INSPIRED OXYGEN 100; BG HCO3 ACT 41.5 mmol/L (22.0-26.0); BG METHEMOGLOBIN 0.3 % (0.0-1.5); BG OXYGEN SATURATION 97.1 % (92.0-98.5); BG OXYHEMOGLOBIN 95.9 % (94.0-97.0); BG PCO2 76.1 mmHg (35.0-45.0); BG PH 7.355 (7.350-7.450); BG PO2 101.5 mmHg (75.0-100.0); BG SAMPLE SITE RIGHT RADIAL; BG VENT MODE VENT - P/C
[2021-10-02 11:22] LABS: NUCLEATED RED BLOOD CELLS 3 /100 WBC; PLATELET ESTIMATE NORMAL
[2021-10-02] MEDS: ERGOCALCIFEROL 50000UNITS CAPSULE PO SCH (12:33)
[2021-10-02] MEDS: MORPHINE SULFATE 2 MG/ML CPJ (NOT FOR IM USE) IV PRN (20:55)
[2021-10-03] VITALS (67 sets, daily range): BP systolic 89–140; BP diastolic 51–78
[2021-10-03] MEDS: IPRATROPIUM BROMIDE (0.02%) 0.5MG/2.5ML NEB HHN SCH ×4 (04:19→20:10)
[2021-10-03 05:57] LABS: CHLORIDE 100 mEq/L (98-107)
[2021-10-03] MEDS: VANCOMYCIN 1250MG in DEXTROSE 5% WATER 250ML IV SCH (06:26)
[2021-10-03] MEDS: DILTIAZEM HCL 30MG TABLET PO SCH ×3 (06:26→21:02)
[2021-10-03 08:46] LABS: BG BASE EXCESS 11.6 mmol/L (-2.0-2.0); BG CARBOXYHEMOGLOBIN 1.5 % (0.5-1.5); BG DEOXYHEMOGLOBIN 4.4 % (0.0-5.0); BG METHEMOGLOBIN 0.1 % (0.0-1.5); BG OXYGEN SATURATION 95.5 % (92.0-98.5); BG PH 7.376 (7.350-7.450); BG PO2 81.6 mmHg (75.0-100.0); BG SAMPLE SITE RIGHT RADIAL; BG TOTAL HEMOGLOBIN 10.6 g/dL (12.0-18.0); BG VENT MODE VENT - P/C
[2021-10-03] MEDS: QUETIAPINE FUMARATE 25MG TABLET PO SCH ×2 (09:03→21:03)
[2021-10-03] MEDS: LORAZEPAM 2MG/ML CPJ IV PRN ×2 (09:03→14:26)
[2021-10-03] MEDS: METHYLPREDNISOLONE SOD SUCC 40 MG/ML VIAL IV SCH (09:03)
[2021-10-03] MEDS: DOCUSATE SODIUM SUGAR FREE 100MG/10ML UDC PEG SCH ×2 (09:03→16:13)
[2021-10-04] VITALS (47 sets, daily range): BP systolic 84–133; BP diastolic 44–76
[2021-10-04] MEDS: IPRATROPIUM BROMIDE (0.02%) 0.5MG/2.5ML NEB HHN SCH ×3 (04:08→17:42)
[2021-10-04] MEDS: DILTIAZEM HCL 30MG TABLET PO SCH ×3 (06:45→21:24)
[2021-10-04] MEDS: VANCOMYCIN 1250MG in DEXTROSE 5% WATER 250ML IV SCH (06:45)
[2021-10-04] MEDS: METHYLPREDNISOLONE SOD SUCC 40 MG/ML VIAL IV SCH (08:49)
[2021-10-04] MEDS: DOCUSATE SODIUM SUGAR FREE 100MG/10ML UDC PEG SCH ×2 (08:49→17:00)
[2021-10-04] MEDS: QUETIAPINE FUMARATE 25MG TABLET PO SCH ×2 (08:50→21:24)
[2021-10-04] MEDS: LORAZEPAM 2MG/ML CPJ IV PRN ×2 (08:50→14:35)
[2021-10-04 08:51] LABS: BG CARBOXYHEMOGLOBIN 1.4 % (0.5-1.5); BG DEOXYHEMOGLOBIN 10.9 % (0.0-5.0); BG FRACTION INSPIRED OXYGEN 100; BG HCO3 ACT 45.2 mmol/L (22.0-26.0); BG METHEMOGLOBIN 0.1 % (0.0-1.5); BG OXYGEN SATURATION 88.9 % (92.0-98.5); BG OXYHEMOGLOBIN 87.6 % (94.0-97.0); BG PCO2 70.8 mmHg (35.0-45.0); BG PH 7.423 (7.350-7.450); BG PO2 54.9 mmHg (75.0-100.0); BG SAMPLE SITE RIGHT RADIAL; BG VENT MODE VENT - P/C
[2021-10-04] MEDS: MORPHINE SULFATE 2 MG/ML CPJ (NOT FOR IM USE) IV PRN ×2 (12:06→21:43)
[2021-10-05] VITALS (73 sets, daily range): BP systolic 78–139; BP diastolic 44–91
[2021-10-05] MEDS: IPRATROPIUM BROMIDE (0.02%) 0.5MG/2.5ML NEB HHN SCH ×4 (01:38→20:32)
[2021-10-05] MEDS: VANCOMYCIN 1250MG in DEXTROSE 5% WATER 250ML IV SCH (06:32)
[2021-10-05] MEDS: DILTIAZEM HCL 30MG TABLET PO SCH ×3 (06:32→21:06)
[2021-10-05] MEDS: MORPHINE SULFATE 2 MG/ML CPJ (NOT FOR IM USE) IV PRN ×2 (06:33→21:06)
[2021-10-05] MEDS: QUETIAPINE FUMARATE 25MG TABLET PO SCH ×2 (09:40→21:06)
[2021-10-05] MEDS: METHYLPREDNISOLONE SOD SUCC 40 MG/ML VIAL IV SCH (09:40)
[2021-10-05] MEDS: DOCUSATE SODIUM SUGAR FREE 100MG/10ML UDC PEG SCH ×2 (09:40→18:48)
[2021-10-05 12:43] LABS: HEMATOCRIT. 32.1 % (36.0-48.0); HEMOGLOBIN. 9.9 g/dL (12.0-16.0); MEAN CORPUSCULAR HEMOGLOBIN 31.2 pg (28.0-32.0); MEAN CORPUSCULAR VOLUME 100.7 fL (81.0-99.0); MEAN PLATELET VOLUME 9.7 fl (7.4-10.4); PLATELET 211 x1000/uL (130-400); RED BLOOD CELL COUNT 3.19 mill/uL (4.2-5.4); RED CELL DISTRIBUTION WIDTH 18.7 % (11.6-14.6)
[2021-10-05 12:48] LABS: CHLORIDE 100 mEq/L (98-107)
[2021-10-05 13:09] LABS: PLATELET ESTIMATE NORMAL
[2021-10-06] VITALS (43 sets, daily range): BP systolic 73–153; BP diastolic 25–87
[2021-10-06] MEDS: IPRATROPIUM BROMIDE (0.02%) 0.5MG/2.5ML NEB HHN SCH ×4 (01:50→20:19)
[2021-10-06] MEDS: MORPHINE SULFATE 2 MG/ML CPJ (NOT FOR IM USE) IV PRN (04:46)
[2021-10-06] MEDS: DILTIAZEM HCL 30MG TABLET PO SCH ×3 (06:45→21:08)
[2021-10-06] MEDS: VANCOMYCIN 1250MG in DEXTROSE 5% WATER 250ML IV SCH (06:45)
[2021-10-06] MEDS ORDERED: NALOXONE HCL 0.4MG/ML VIAL IV PRN (07:30)
[2021-10-06] MEDS: DOCUSATE SODIUM SUGAR FREE 100MG/10ML UDC PEG SCH ×2 (08:15→18:17)
[2021-10-06] MEDS: QUETIAPINE FUMARATE 25MG TABLET PO SCH ×2 (08:16→21:07)
[2021-10-06] MEDS: METHYLPREDNISOLONE SOD SUCC 40 MG/ML VIAL IV SCH (08:16)
[2021-10-06 08:18] LABS: BG BASE EXCESS 17.1 mmol/L (-2.0-2.0); BG CARBOXYHEMOGLOBIN 0.9 % (0.5-1.5); BG DEOXYHEMOGLOBIN 3.3 % (0.0-5.0); BG FRACTION INSPIRED OXYGEN 100; BG HCO3 ACT 45.2 mmol/L (22.0-26.0); BG METHEMOGLOBIN 0.2 % (0.0-1.5); BG OXYGEN SATURATION 96.7 % (92.0-98.5); BG OXYHEMOGLOBIN 95.6 % (94.0-97.0); BG PCO2 77.6 mmHg (35.0-45.0); BG PH 7.383 (7.350-7.450); BG PO2 96.4 mmHg (75.0-100.0); BG TOTAL HEMOGLOBIN 10.5 g/dL (12.0-18.0); BG VENT MODE VENT - P/C
[2021-10-06] MEDS ORDERED: MORPHINE SULFATE 2 MG/ML CPJ (NOT FOR IM USE) IV PRN (20:45)
[2021-10-06] MEDS: LORAZEPAM 2MG/ML CPJ IV PRN (21:06)
[2021-10-07] VITALS (43 sets, daily range): BP systolic 82–125; BP diastolic 39–72
[2021-10-07] MEDS: IPRATROPIUM BROMIDE (0.02%) 0.5MG/2.5ML NEB HHN SCH ×4 (02:09→20:31)
[2021-10-07 05:08] LABS: BASOPHILS % 0.2 % (0.0-2.0); EOSINOPHILS % 0.6 % (0.0-5.0); HEMATOCRIT. 29.6 % (36.0-48.0); HEMOGLOBIN. 9.2 g/dL (12.0-16.0); LYMPHOCYTES % 10.9 % (20.0-50.0); MEAN CORPUSCULAR HEMOGLOBIN 30.6 pg (28.0-32.0); MEAN PLATELET VOLUME 9.4 fl (7.4-10.4); MONOCYTES % 4.2 % (2.0-8.0); NEUTROPHILS % 84.1 % (40.0-76.0); PLATELET 233 x1000/uL (130-400); RED BLOOD CELL COUNT 2.99 mill/uL (4.2-5.4); RED CELL DISTRIBUTION WIDTH 18.1 % (11.6-14.6)
[2021-10-07 05:21] LABS: CHLORIDE 100 mEq/L (98-107)
[2021-10-07] MEDS: VANCOMYCIN 1250MG in DEXTROSE 5% WATER 250ML IV SCH (05:26)
[2021-10-07] MEDS: DILTIAZEM HCL 30MG TABLET PO SCH ×3 (05:27→21:49)
[2021-10-07 05:29] LABS: PHOSPHORUS 2.8 mg/dL (2.5-4.9)
[2021-10-07] MEDS: LORAZEPAM 2MG/ML CPJ IV PRN ×2 (05:29→16:51)
[2021-10-07] MEDS: DOCUSATE SODIUM SUGAR FREE 100MG/10ML UDC PEG SCH ×2 (10:00→16:51)
[2021-10-07] MEDS: QUETIAPINE FUMARATE 25MG TABLET PO SCH ×2 (10:00→21:48)
[2021-10-07] MEDS: NYSTATIN POWDER 15GM TOP SCH ×3 (10:01→16:51)
[2021-10-08] VITALS (48 sets, daily range): BP systolic 86–122; BP diastolic 27–71
[2021-10-08] MEDS: IPRATROPIUM BROMIDE (0.02%) 0.5MG/2.5ML NEB HHN SCH ×4 (02:40→21:02)
[2021-10-08] MEDS: VANCOMYCIN 1250MG in DEXTROSE 5% WATER 250ML IV SCH (05:13)
[2021-10-08] MEDS: DILTIAZEM HCL 30MG TABLET PO SCH ×3 (05:13→21:12)
[2021-10-08] MEDS: LORAZEPAM 2MG/ML CPJ IV PRN ×2 (05:20→18:37)
[2021-10-08 08:37] LABS: BG BASE EXCESS 21.3 mmol/L (-2.0-2.0); BG CARBOXYHEMOGLOBIN 1.5 % (0.5-1.5); BG FRACTION INSPIRED OXYGEN 100; BG HCO3 ACT 49.2 mmol/L (22.0-26.0); BG METHEMOGLOBIN 0.1 % (0.0-1.5); BG OXYGEN SATURATION 89.8 % (92.0-98.5); BG OXYHEMOGLOBIN 88.4 % (94.0-97.0); BG PH 7.418 (7.350-7.450); BG PO2 60.5 mmHg (75.0-100.0); BG SAMPLE SITE RIGHT RADIAL; BG TOTAL HEMOGLOBIN 10.2 g/dL (12.0-18.0); BG TOTAL RESPIRATORY RATE 40 b/min; BG VENT MODE VENT - P/C
[2021-10-08] MEDS: QUETIAPINE FUMARATE 25MG TABLET PO SCH ×2 (09:06→21:12)
[2021-10-08] MEDS: DOCUSATE SODIUM SUGAR FREE 100MG/10ML UDC PEG SCH ×2 (09:06→17:17)
[2021-10-08] MEDS: NYSTATIN POWDER 15GM TOP SCH ×3 (09:07→17:17)
[2021-10-08] MEDS: PANTOPRAZOLE SODIUM 40 MG/VIAL IV SCH (09:08)
[2021-10-09] VITALS (48 sets, daily range): BP systolic 86–167; BP diastolic 28–86
[2021-10-09] MEDS: IPRATROPIUM BROMIDE (0.02%) 0.5MG/2.5ML NEB HHN SCH ×4 (00:25→20:55)
[2021-10-09] MEDS: VANCOMYCIN 1250MG in DEXTROSE 5% WATER 250ML IV SCH (05:07)
[2021-10-09] MEDS: DILTIAZEM HCL 30MG TABLET PO SCH ×3 (05:08→21:06)
[2021-10-09 06:12] LABS: BASOPHILS % 0.2 % (0.0-2.0); EOSINOPHILS % 1.3 % (0.0-5.0); HEMOGLOBIN. 9.8 g/dL (12.0-16.0); LYMPHOCYTES % 15.4 % (20.0-50.0); MEAN CORPUSCULAR HEMOGLOBIN 31.2 pg (28.0-32.0); MEAN CORPUSCULAR VOLUME 98.4 fL (81.0-99.0); MEAN PLATELET VOLUME 9.7 fl (7.4-10.4); MONOCYTES % 3.4 % (2.0-8.0); NEUTROPHILS % 79.7 % (40.0-76.0); PLATELET 233 x1000/uL (130-400); RED BLOOD CELL COUNT 3.15 mill/uL (4.2-5.4); RED CELL DISTRIBUTION WIDTH 17.9 % (11.6-14.6)
[2021-10-09 06:52] LABS: CHLORIDE 101 mEq/L (98-107)
[2021-10-09] MEDS: DOCUSATE SODIUM SUGAR FREE 100MG/10ML UDC PEG SCH ×2 (08:29→17:00)
[2021-10-09] MEDS: NYSTATIN POWDER 15GM TOP SCH ×3 (08:30→17:30)
[2021-10-09] MEDS: PANTOPRAZOLE SODIUM 40 MG/VIAL IV SCH (08:31)
[2021-10-09] MEDS: QUETIAPINE FUMARATE 25MG TABLET PO SCH ×2 (08:31→21:05)
[2021-10-10] VITALS (49 sets, daily range): BP systolic 92–140; BP diastolic 45–89
[2021-10-10] MEDS: IPRATROPIUM BROMIDE (0.02%) 0.5MG/2.5ML NEB HHN SCH ×4 (01:27→20:09)
[2021-10-10] MEDS: VANCOMYCIN 1250MG in DEXTROSE 5% WATER 250ML IV SCH (05:34)
[2021-10-10] MEDS: DILTIAZEM HCL 30MG TABLET PO SCH ×3 (05:36→21:10)
[2021-10-10] MEDS: QUETIAPINE FUMARATE 25MG TABLET PO SCH (08:16)
[2021-10-10] MEDS: PANTOPRAZOLE SODIUM 40 MG/VIAL IV SCH (08:16)
[2021-10-10] MEDS: NYSTATIN POWDER 15GM TOP SCH ×3 (08:16→16:48)
[2021-10-10] MEDS: LORAZEPAM 2MG/ML CPJ IV PRN (08:27)
[2021-10-10 08:41] LABS: BG BASE EXCESS 19.7 mmol/L (-2.0-2.0); BG CARBOXYHEMOGLOBIN 1.5 % (0.5-1.5); BG DEOXYHEMOGLOBIN 8.5 % (0.0-5.0); BG FRACTION INSPIRED OXYGEN 100; BG HCO3 ACT 47.2 mmol/L (22.0-26.0); BG METHEMOGLOBIN 0.2 % (0.0-1.5); BG OXYGEN SATURATION 91.4 % (92.0-98.5); BG OXYHEMOGLOBIN 89.8 % (94.0-97.0); BG PCO2 73.8 mmHg (35.0-45.0); BG PH 7.424 (7.350-7.450); BG PO2 63.5 mmHg (75.0-100.0); BG SAMPLE SITE RIGHT RADIAL; BG TOTAL HEMOGLOBIN 10.2 g/dL (12.0-18.0); BG TOTAL RESPIRATORY RATE 47 b/min; BG VENT MODE VENT - P/C
[2021-10-10] MEDS: DOCUSATE SODIUM SUGAR FREE 100MG/10ML UDC PEG SCH ×2 (09:00→16:49)
[2021-10-10] MEDS: QUETIAPINE FUMARATE 50MG TABLET PO SCH (21:09)
[2021-10-11] VITALS (48 sets, daily range): BP systolic 94–138; BP diastolic 27–68
[2021-10-11] MEDS: IPRATROPIUM BROMIDE (0.02%) 0.5MG/2.5ML NEB HHN SCH ×4 (00:23→20:28)
[2021-10-11] MEDS: VANCOMYCIN 1250MG in DEXTROSE 5% WATER 250ML IV SCH (05:29)
[2021-10-11] MEDS: DILTIAZEM HCL 30MG TABLET PO SCH ×3 (05:29→21:23)
[2021-10-11 06:06] LABS: BASOPHILS % 0.5 % (0.0-2.0); EOSINOPHILS % 0.6 % (0.0-5.0); HEMATOCRIT. 27.6 % (36.0-48.0); HEMOGLOBIN. 8.5 g/dL (12.0-16.0); LYMPHOCYTES % 11.7 % (20.0-50.0); MEAN CORPUSCULAR HEMOGLOBIN 29.9 pg (28.0-32.0); MEAN CORPUSCULAR VOLUME 96.9 fL (81.0-99.0); MEAN PLATELET VOLUME 9.8 fl (7.4-10.4); MONOCYTES % 4.4 % (2.0-8.0); NEUTROPHILS % 82.8 % (40.0-76.0); PLATELET 251 x1000/uL (130-400); RED BLOOD CELL COUNT 2.85 mill/uL (4.2-5.4)
[2021-10-11] MEDS: LORAZEPAM 2MG/ML CPJ IV PRN ×2 (06:11→09:06)
[2021-10-11 06:12] LABS: CHLORIDE 99 mEq/L (98-107)
[2021-10-11 08:20] LABS: BG BASE EXCESS 16.6 mmol/L (-2.0-2.0); BG CARBOXYHEMOGLOBIN 1.1 % (0.5-1.5); BG FRACTION INSPIRED OXYGEN 100; BG METHEMOGLOBIN 0.3 % (0.0-1.5); BG OXYGEN SATURATION 87.8 % (92.0-98.5); BG OXYHEMOGLOBIN 86.6 % (94.0-97.0); BG PCO2 74.2 mmHg (35.0-45.0); BG PH 7.391 (7.350-7.450); BG PO2 56.6 mmHg (75.0-100.0); BG SAMPLE SITE RIGHT RADIAL; BG TOTAL HEMOGLOBIN 9.1 g/dL (12.0-18.0); BG TOTAL RESPIRATORY RATE 42 b/min; BG VENT MODE VENT - P/C
[2021-10-11] MEDS: PANTOPRAZOLE SODIUM 40 MG/VIAL IV SCH (09:05)
[2021-10-11] MEDS: DOCUSATE SODIUM SUGAR FREE 100MG/10ML UDC PEG SCH ×2 (09:05→18:44)
[2021-10-11] MEDS: QUETIAPINE FUMARATE 25MG TABLET PO SCH (09:06)
[2021-10-11] MEDS: NYSTATIN POWDER 15GM TOP SCH ×3 (09:07→18:44)
[2021-10-11] MEDS: ENOXAPARIN 40MG/0.4ML SYR SUBCUT SCH (10:49)
[2021-10-11] MEDS: QUETIAPINE FUMARATE 50MG TABLET PO SCH (21:26)
[2021-10-12] VITALS (57 sets, daily range): BP systolic 52–146; BP diastolic 23–91
[2021-10-12] MEDS: IPRATROPIUM BROMIDE (0.02%) 0.5MG/2.5ML NEB HHN SCH ×3 (01:41→16:24)
[2021-10-12] MEDS: DILTIAZEM HCL 30MG TABLET PO SCH ×3 (07:06→22:00)
[2021-10-12] MEDS: VANCOMYCIN 1250MG in DEXTROSE 5% WATER 250ML IV SCH (07:06)
[2021-10-12] MEDS: DOCUSATE SODIUM SUGAR FREE 100MG/10ML UDC PEG SCH ×2 (09:35→17:00)
[2021-10-12] MEDS: QUETIAPINE FUMARATE 25MG TABLET PO SCH (09:35)
[2021-10-12] MEDS: PANTOPRAZOLE SODIUM 40 MG/VIAL IV SCH (09:35)
[2021-10-12] MEDS: NYSTATIN POWDER 15GM TOP SCH ×3 (09:36→17:00)
[2021-10-12] MEDS: ENOXAPARIN 40MG/0.4ML SYR SUBCUT SCH (09:41)
[2021-10-12 16:18] LABS: BG BASE EXCESS 18.3 mmol/L (-2.0-2.0); BG CARBOXYHEMOGLOBIN 1.4 % (0.5-1.5); BG DEOXYHEMOGLOBIN 25.1 % (0.0-5.0); BG HCO3 ACT 47.3 mmol/L (22.0-26.0); BG METHEMOGLOBIN 0.1 % (0.0-1.5); BG OXYGEN SATURATION 74.5 % (92.0-98.5); BG OXYHEMOGLOBIN 73.4 % (94.0-97.0); BG PCO2 88.2 mmHg (35.0-45.0); BG PH 7.347 (7.350-7.450); BG PO2 40.7 mmHg (75.0-100.0); BG SAMPLE SITE RIGHT RADIAL; BG TOTAL HEMOGLOBIN 10.2 g/dL (12.0-18.0); BG VENT MODE VENT - P/C
[2021-10-12] MEDS: PHENYLEPHRINE 100 MG in DEXT 5% WATER 240 ML IV PRN (19:02)
[2021-10-12] MEDS ORDERED: DOPAMINE 800MG PREMIX (DOUBLE) 250 ML IV PRN (20:00)
[2021-10-12] MEDS ORDERED: VASOPRESSIN 20 UNIT in SODIUM CHLORIDE 0.9% 99 ML IV PRN (20:00)
[2021-10-12 20:35] LABS: BG BASE EXCESS 7.9 mmol/L (-2.0-2.0); BG CARBOXYHEMOGLOBIN 1.6 % (0.5-1.5); BG DEOXYHEMOGLOBIN 31.8 % (0.0-5.0); BG FRACTION INSPIRED OXYGEN 100; BG METHEMOGLOBIN 0.3 % (0.0-1.5); BG OXYGEN SATURATION 67.6 % (92.0-98.5); BG OXYHEMOGLOBIN 66.3 % (94.0-97.0); BG PCO2 71.8 mmHg (35.0-45.0); BG PH 7.318 (7.350-7.450); BG PO2 36.1 mmHg (75.0-100.0); BG SAMPLE SITE RIGHT RADIAL; BG TOTAL HEMOGLOBIN 10.9 g/dL (12.0-18.0); BG VENT MODE VENT - P/C
[2021-10-12] MEDS: QUETIAPINE FUMARATE 50MG TABLET PO SCH (21:00)
[2021-10-13] VITALS (16 sets, daily range): BP systolic 47–110; BP diastolic 17–68
[2021-10-13] MEDS: IPRATROPIUM BROMIDE (0.02%) 0.5MG/2.5ML NEB HHN SCH (00:22)
[2021-10-13] MEDS: PHENYLEPHRINE 100 MG in DEXT 5% WATER 240 ML IV PRN (02:37)
[2021-10-13 02:45] LABS: BG BASE EXCESS -6.5 mmol/L (-2.0-2.0); BG DEOXYHEMOGLOBIN 19.8 % (0.0-5.0); BG FRACTION INSPIRED OXYGEN 100; BG HCO3 ACT 20.8 mmol/L (22.0-26.0); BG METHEMOGLOBIN 0.3 % (0.0-1.5); BG OXYGEN SATURATION 79.9 % (92.0-98.5); BG OXYHEMOGLOBIN 78.9 % (94.0-97.0); BG PCO2 50.2 mmHg (35.0-45.0); BG PH 7.236 (7.350-7.450); BG PO2 54.2 mmHg (75.0-100.0); BG SAMPLE SITE RIGHT FEMORAL; BG TOTAL HEMOGLOBIN 10.2 g/dL (12.0-18.0); BG TOTAL RESPIRATORY RATE 40 b/min; BG VENT MODE VENT - P/C
[2021-10-13] MEDS ORDERED: SODIUM BICARBONATE 8.4% 1 MEQ/ML 50ML SYR IV NR (03:30)
[2021-10-13] MEDS ORDERED: CALCIUM CHLORIDE 1GM/10ML SYR IV NR ×2 (03:30→04:00)
[2021-10-13] MEDS ORDERED: SODIUM BICARBONATE 8.4% 1 MEQ/ML 50ML SYR IV ONE (10:40)
[2021-10-13] MEDS ORDERED: EPINEPHRINE 0.1MG/ML (1:10,000) 10ML SYR ONE (10:40)
[2021-10-13] MEDS ORDERED: CALCIUM CHLORIDE 1GM/10ML SYR IV ONE (10:40)
== END 2021-10-13 04:00 | DRG 4 ==
LOC: ER 03:12 → MICUSO 09:16 → EDBEDREQ 09:33 → EDBEDREQSVC 09:33 → 7WST 15:09 → MICUSO 07-20 12:17 → MICUNO 07-22 17:16 → 5EST 09-20 00:45 → MICUSO 09-22 17:00
PROVIDERS: ADMIT Internal Medicine; ATTEND Internal Medicine
PROC: 5A09457 Assistance with Respiratory Ventilation, 24-96 Consecutive Hours, Continuous Positive Airway Pressure (ICD-10-PCS; 2021-07-20)
PROC: 5A1955Z Respiratory Ventilation, Greater than 96 Consecutive Hours (ICD-10-PCS; 2021-07-24)
PROC: 0BH17EZ Insertion of Endotracheal Airway into Trachea, Via Natural or Artificial Opening (ICD-10-PCS; 2021-07-24)
PROC: 30233N1 Transfusion of Nonautologous Red Blood Cells into Peripheral Vein, Percutaneous Approach (ICD-10-PCS; 2021-08-05)
PROC: 0B110F4 Bypass Trachea to Cutaneous with Tracheostomy Device, Open Approach (ICD-10-PCS; principal; 2021-08-21)
PROC: 0DH63UZ Insertion of Feeding Device into Stomach, Percutaneous Approach (ICD-10-PCS; 2021-09-01)
PROC: 0W9B30Z Drainage of Left Pleural Cavity with Drainage Device, Percutaneous Approach (ICD-10-PCS; 2021-09-05)
PROC: 0W9B30Z Drainage of Left Pleural Cavity with Drainage Device, Percutaneous Approach (ICD-10-PCS; 2021-09-06)
PROC: 0W9B30Z Drainage of Left Pleural Cavity with Drainage Device, Percutaneous Approach (ICD-10-PCS; 2021-09-09)
PROC: 02HV33Z Insertion of Infusion Device into Superior Vena Cava, Percutaneous Approach (ICD-10-PCS; 2021-09-19)
PROC: B548ZZA Ultrasonography of Superior Vena Cava, Guidance (ICD-10-PCS; 2021-09-19)
PROC: 0WPBX0Z Removal of Drainage Device from Left Pleural Cavity, External Approach (ICD-10-PCS; 2021-10-02)
PROC: 0W9B30Z Drainage of Left Pleural Cavity with Drainage Device, Percutaneous Approach (ICD-10-PCS; 2021-10-02)
PROC: 5A12012 Performance of Cardiac Output, Single, Manual (ICD-10-PCS; 2021-10-13)
DX: A41.89 Other specified sepsis (principal); U07.1 COVID-19; J12.82 Pneumonia due to coronavirus disease 2019; N17.0 Acute kidney failure with tubular necrosis; R65.21 Severe sepsis with septic shock; E43 Unspecified severe protein-calorie malnutrition; J80 Acute respiratory distress syndrome; K29.01 Acute gastritis with bleeding; J93.0 Spontaneous tension pneumothorax; G93.41 Metabolic encephalopathy; E87.1 Hypo-osmolality and hyponatremia; I82.432 Acute embolism and thrombosis of left popliteal vein; J45.901 Unspecified asthma with (acute) exacerbation; D62 Acute posthemorrhagic anemia; K81.0 Acute cholecystitis; Z99.11 Dependence on respirator [ventilator] status; J93.82 Other air leak; E78.00 Pure hypercholesterolemia, unspecified; E78.5 Hyperlipidemia, unspecified; I51.7 Cardiomegaly; Z96.653 Presence of artificial knee joint, bilateral; E66.9 Obesity, unspecified; F41.9 Anxiety disorder, unspecified; L89.896 Pressure-induced deep tissue damage of other site; D69.6 Thrombocytopenia, unspecified; K76.89 Other specified diseases of liver; X58.XXXA Exposure to other specified factors, initial encounter; S70.12XA Contusion of left thigh, initial encounter; M19.90 Unspecified osteoarthritis, unspecified site; R13.12 Dysphagia, oropharyngeal phase; B36.9 Superficial mycosis, unspecified; I10 Essential (primary) hypertension; K44.9 Diaphragmatic hernia without obstruction or gangrene; J98.2 Interstitial emphysema; E11.9 Type 2 diabetes mellitus without complications; Z79.899 Other long term (current) drug therapy; Y93.89 Activity, other specified; Y92.89 Other specified places as the place of occurrence of the external cause; Y99.8 Other external cause status; Z68.31 Body mass index [BMI] 31.0-31.9, adult; Z79.4 Long term (current) use of insulin
CPT/HCPCS: 31500; 36415; 36600; 71045; 71275; 74177; 76937; 80048; 80053; 80061; 80202; 80305; 81003; 82040; 82270; 82375; 82550; 82553; 82607; 82728; 82746; 82805; 82962; 83036; 83540; 83550; 83605; 83615; 83735; 83880; 84100; 84134; 84145; 84439; 84443; 84478; 84484; 85014; 85018; 85025; 85027; 85379; 85384; 86140; 86850; 86900; 86920; 87070; 87106; 87426; 93005; 93306; 93970; 94002; 94003; 94640; 94660; 99285; A6261; C1725; C1760; C1893; C9113; J0153; J0282; J0330; J0456; J0690; J0692; J0696; J1265; J1650; J1940; J2060; J2185; J2250; J2270; J2370; J2543; J2704; J2765; J2920; J3010; J3370; J3490; J7040; J7042; J7050; J7060; J7070; P9016; Q9967; U0003; U0005; A4315